=== PATIENT | female | born 1945 | race Caucasian/White ===

== ENCOUNTER 2024-01-15 10:41 | Emergency (ER) | payer MEDICARE, SELFPAY ==
[2024-01-15 11:02] VITALS: BP 116/56; PULSE 72; RESP 16; TEMP 36.5; O2SAT 99; BMI 21.2
--- NOTE | 2024-01-15 11:07 | DI.CT.S_ITS ---
PROCEDURE: CT CERVICAL SPINE WO CON INDICATIONS: fall hit head TECHNIQUE: Noncontrast 3 mm thick sections acquired from the skull base to the T4 level. Sagittal and coronal reformats were then constructed. For radiation dose reduction, the following was used: automated exposure control, adjustment of mA and/or kV according to patient size. COMPARISON: None. FINDINGS: Image quality: Excellent. Bones: No fractures or dislocations. Visualized superior ribs are intact. Disc space narrowing and hypertrophic facet joints noted in the mid to lower cervical spine. Degenerative grade 1 anterior spondylolisthesis C7-T1. At least moderate central stenosis with foraminal C5-6, C6-7 and C7-T1 Soft tissues: Prevertebral soft tissues are normal in thickness. No paravertebral hematomas. No apical pneumothoraces. IMPRESSION: No evidence of fracture or traumatic malalignment. Multilevel degenerative disc disease and arthropathy in the mid to lower lumbar spine Approved by: Jason Stanford M.D. on 01/15/2024 at 11:07
--- NOTE | 2024-01-15 11:07 | DI.CT.S_ITS ---
PROCEDURE: CT HEAD/BRAIN WO CON INDICATIONS: fall hit head TECHNIQUE: Noncontrast 4.5 mm thick angled axial sections acquired from the foramen magnum to the vertex, with coronal and sagittal reformats. For radiation dose reduction, the following was used: automated exposure control, adjustment of mA and/or kV according to patient size. COMPARISON: None. FINDINGS: Image quality: Diagnostic. CSF spaces: Basal cisterns are patent. No extra-axial fluid collections. Ventricles are normal in size and shape. Brain: No midline shift. No intracranial masses or hemorrhage. Rader-white matter interface is normal. Moderate cerebral and cerebellar volume loss with multifocal white matter chronic ischemic change noted. Atherosclerotic calcification noted associated with cavernous segments of both internal carotid arteries. Skull and face: Calvarium and visualized facial bones are intact, without suspicious lesions. Sinuses: Visualized sinuses and mastoids are clear. IMPRESSION: Atrophy and chronic ischemic change without acute hemorrhage or mass. Approved by: Jason Stanford M.D. on 01/15/2024 at 11:03
--- NOTE | 2024-01-15 11:07 | DI.RAD.S_ITS ---
PROCEDURE: XR ANKLE RT MIN 3V INDICATIONS: fall hit head TECHNIQUE: 3 views of the ankle were acquired. COMPARISON: None. FINDINGS: Bones: No fractures or dislocations. Ankle mortise is normally aligned. No suspicious bony lesions. Healed instrumented distal fibular fracture Soft tissues: No tibiotalar joint effusion. Achilles tendon appears normal. IMPRESSION: No acute fracture or hardware failure Approved by: Jason Stanford M.D. on 01/15/2024 at 10:41
--- NOTE | 2024-01-15 12:26 | PC.NURSE ---
no fracture on ankle XR and hardware intact. kareem wrap applied to affected ankle. ice applied. pt unstable on crutches per daughter. walker at home. advised activity as tolerated and f/u with ortho if pain persistant after 1-2 weeks. sitting in WC in 3C. awaiting disposition.
--- NOTE | 2024-01-15 12:51 | ED_ITS ---
HPI - Extremity Injury (Lower) <Brionna Warren PA-C - Last Filed: 01/15/24 15:00> General Chief Complaint: Extremity Injury, Lower Stated Complaint: GLF, No thinners, R Foot Injury Time Seen by Provider: 01/15/24 12:51 History of Present Illness HPI Narrative: Patient is a very pleasant 78-year-old female that presents to the emergency room department today with her daughter. Patient fell last night in the bathroom, and then was unable to get herself up under her own power, she finally was able to crawl to her bedroom to access the phone and her smart phone to call family and let them know she would fallen. Patient complains of right ankle discomfort and pain. Patient fell a year ago and had an ankle fracture needed to have hardware placed. Patient unable to weightbear on the right ankle, due to pain and discomfort. Patient has a substantial musculoskeletal and orthopedic history of multiple interventions in the cervical spine, and lumbar spine with multiple laminectomies, effusions, and instrumentations. Currently at this time the patient denies loss of consciousness, her only complaint is of substantial right ankle pain. Currently the ankle is bruised, and is elevated and has been wrapped with an Simon wrap. Patient states that she did not do anything for pain prior to being seen she takes multiple medications for multiple ongoing medical issues, she did elevate the leg, some ice has been applied and currently is being applied at this time. She does live alone, in her [id number] suite, family is close by, next door neighbors live above her. Patient states that she lives alone, she has been falling more often, she does have footdrop and weakness to the lower extremities, she states she is unsteady, she states she is able to complete her ADLs, she sees a primary care doctor, she sees a psychiatrist, she is on multiple medications, she is chronic pain, has not seen a pain specialist, no other further issues or problems currently at this time. Her chart and medications have been reviewed. Related Data Home Medications Medication Instructions Recorded Confirmed dextroamphetamine-amphetamine PO 06/02/18 06/02/18 [Adderall] gabapentin PO 06/02/18 06/02/18 hydrocodone-acetaminophen PO 06/02/18 06/02/18 levothyroxine [Levoxyl] PO 06/02/18 06/02/18 lisinopril PO 06/02/18 06/02/18 omeprazole PO 06/02/18 06/02/18 oxycodone-acetaminophen PO 06/02/18 06/02/18 quetiapine [Seroquel] PO 06/02/18 06/02/18 stool softner PO 06/02/18 06/02/18 venlafaxine PO 06/02/18 06/02/18 Allergies Allergy/AdvReac Type Severity Reaction Status Date / Time Penicillins Allergy Severe Anaphylaxis Verified 06/02/18 14:25 procaine [From Novocain] Allergy Severe Anaphylaxis Verified 06/02/18 14:25 Sulfa (Sulfonamide Allergy Severe Anaphylaxis Verified 06/02/18 14:25 Antibiotics) tree nut Allergy Severe Anaphylaxis Verified 06/02/18 14:25 Review of Systems <Brionna Warren PA-C - Last Filed: 01/15/24 15:00> Review of Systems Narrative: Negative except as above Musculoskeletal Comments: right ankle pain, unable to bear weight neck pain head CT was done due to fall Patient History <Brionna Warren PA-C - Last Filed: 01/15/24 15:00> Social History Smoking Status: Never smoker Smoking Status: Never smoker Exam <Brionna Warren PA-C - Last Filed: 01/15/24 15:00> Initial Vital Signs Initial Vital Signs: Vital Signs Temperature 97.7 F 01/15/24 11:02 Pulse Rate 72 01/15/24 11:02 Respiratory Rate 16 01/15/24 11:02 Blood Pressure 116/56 L 01/15/24 11:02 Pulse Oximetry 99 01/15/24 11:02 Oxygen Delivery Method Room Air 01/15/24 11:02 reviewed Const General: cooperative, comfortable, well groomed, No acute distress, No in distress, No anxious and frail appearing Nutritional Appearance: thin and underweight Eyes General: Yes appearance normal, both eyes and all related structures Conjunctivae: conjunctivae normal Sclera: sclerae normal Pupils: PERRL EOM: EOM intact bilaterally Resp Auscultation: clear to auscultation bilaterally, no crackles, no rales, no rhonchi, no wheezes and no rubs Tactile Fremitus: tactile fremitus absent Cardio Rate: regular rate Rhythm: regular rhythm Heart Sounds: S1 normal and S2 normal Skin Other: patient has had substantial ecchymosis and some mild soft tissue swelling to the right ankle and foot. Pulses are present. Cap refill Neuro General: patient alert, patient oriented x3 and oriented Gait: other ( Not tested) Other: the patient seems slightly altered, I do not know if this is due to her medications, or she is at baseline I have just met this patient, the daughter seems concerned about the recent falls, she seems concerned about her mother's change in mentation, and the ongoing issues that she is currently having at home with the recent falls, asking questions about life Alert, and how she can help her mother be safe at home in her ADLs as well as her [id number] suite. Extrem Other: Range of motion in the upper extremities, strength, pulses, cap refill is preserved, her body habitus is very thin, I do not know if she is taking enough nutrients, she should be seen by nutrition to be evaluated and possible dietary to help her with supplementation. The left lower extremity range of motion, pulses, cap refill is preserved. Right lower extremity hip, femur, knee, and upper tibia and fibia are normal on exam, she does have a moderate amount of ecchymosis and soft tissue swelling to the distal tib-fib ankle area, her x-rays are negative for any acute findings. The ankle is wrapped. She does have pulses, cap refill is not delayed. She is unable to weightbear, she has not stable enough for crutches, she does have a walker at home Psych Other: Appearance thin, dressed appropriately, clean, mental status I think she is at baseline, speech is slightly slow, movement is not tested due to the fact the patient can not weightbear, her mood and affect I think are blunted by the combination of her medications, her attitude is appropriate, I think her thought process and thought content again is also blunted by the combination of medications that she is currently taking. I also think her judgment is perhaps splinted by the medications that she is currently taking. Discharge information is given to the patient and daughter on things that I feel that they could ask and discuss with her primary care doctor in the office. That might be helpful to the patient going forward. <Suzanne Botnick, DO - Last Filed: 01/15/24 17:35> Initial Vital Signs Initial Vital Signs: Vital Signs Temperature 97.7 F 01/15/24 11:02 Pulse Rate 72 01/15/24 11:02 Respiratory Rate 16 01/15/24 11:02 Blood Pressure 116/56 L 01/15/24 11:02 Pulse Oximetry 99 01/15/24 11:02 Oxygen Delivery Method Room Air 01/15/24 11:02 Scores <Brionna Warren PA-C - Last Filed: 01/15/24 15:00> GCS Citation: 15 Course <Brionna Warren PA-C - Last Filed: 01/15/24 15:00> Orders Ordered: ED Orders 01/15/24 11:07 CT cervical spine wo con Stat CT head/brain wo con Stat XR ankle RT min 3V Stat Vital Signs Vital signs: Vital Signs - 8 hr 01/15/24 11:02 01/15/24 13:40 Temperature 97.7 F Pulse Rate 72 16 L Respiratory Rate 16 16 Blood Pressure 116/56 L 129/60 Pulse Oximetry 99 96 Oxygen Delivery Method Room Air Room Air <Suzanne Boothe DO - Last Filed: 01/15/24 17:35> Orders Ordered: ED Orders 01/15/24 11:07 CT cervical spine wo con Stat CT head/brain wo con Stat XR ankle RT min 3V Stat Vital Signs Vital signs: Vital Signs - 8 hr 01/15/24 11:02 01/15/24 13:40 Temperature 97.7 F Pulse Rate 72 16 L Respiratory Rate 16 16 Blood Pressure 116/56 L 129/60 Pulse Oximetry 99 96 Oxygen Delivery Method Room Air Room Air MDM - Extremity Injury (Lower) <Brionna Warren PA-C - Last Filed: 01/15/24 15:00> Imaging Data Extremity x-ray #1: Radiologist's Impression: [address] [address] XRay Report Signed Patient: Hilda Harvey MR#: [id number] : 1945 Acct:[id number] Age/Sex: 78 / F Date of Service: 01/15/24 Loc: ED Accession Number: [id number] Procedure: XR ankle RT min 3V Ordering Provider: Suzanne Boothe D.O. PROCEDURE: XR ANKLE RT MIN 3V INDICATIONS: fall hit head TECHNIQUE: 3 views of the ankle were acquired. COMPARISON: None. FINDINGS: Bones: No fractures or dislocations. Ankle mortise is normally aligned. No suspicious bony lesions. Healed instrumented distal fibular fracture Soft tissues: No tibiotalar joint effusion. Achilles tendon appears normal. IMPRESSION: No acute fracture or hardware failure Approved by: Jason Stanford M.D. on 01/15/2024 at 10:41 CT - cervical spine: Radiologist's Impression: [place] [address] CT Scan Report Signed Patient: Hilda Harvey MR#: [id number] : 1945 Acct:[id number] Age/Sex: 78 / F Date of Service: 01/15/24 Loc: ED Accession Number: [id number] Procedure: CT cervical spine wo con Ordering Provider: Suzanne Boothe D.O. PROCEDURE: CT CERVICAL SPINE WO CON INDICATIONS: fall hit head TECHNIQUE: Noncontrast 3 mm thick sections acquired from the skull base to the T4 level. Sagittal and coronal reformats were then constructed. For radiation dose reduction, the following was used: automated exposure control, adjustment of mA and/or kV according to patient size. COMPARISON: None. FINDINGS: Image quality: Excellent. Bones: No fractures or dislocations. Visualized superior ribs are intact. Disc space narrowing and hypertrophic facet joints noted in the mid to lower cervical spine. Degenerative grade 1 anterior spondylolisthesis C7-T1. At least moderate central stenosis with foraminal C5-6, C6-7 and C7-T1 Soft tissues: Prevertebral soft tissues are normal in thickness. No paravertebral hematomas. No apical pneumothoraces. IMPRESSION: No evidence of fracture or traumatic malalignment. Multilevel degenerative disc disease and arthropathy in the mid to lower lumbar spine Approved by: Jason Stanford M.D. on 01/15/2024 at 11:07 CT scan - head: Radiologist's Impression: [place] [id number] CT Scan Report Signed Patient: Hilda Harvey MR#: [id number] : 1945 Acct:[id number] Age/Sex: 78 / F Date of Service: 01/15/24 Loc: ED Accession Number: [id number] Procedure: CT head/brain wo con Ordering Provider: Suzanne Boothe D.O. PROCEDURE: CT HEAD/BRAIN WO CON INDICATIONS: fall hit head TECHNIQUE: Noncontrast 4.5 mm thick angled axial sections acquired from the foramen magnum to the vertex, with coronal and sagittal reformats. For radiation dose reduction, the following was used: automated exposure control, adjustment of mA and/or kV according to patient size. COMPARISON: None. FINDINGS: Image quality: Diagnostic. CSF spaces: Basal cisterns are patent. No extra-axial fluid collections. Ventricles are normal in size and shape. Brain: No midline shift. No intracranial masses or hemorrhage. Rader-white matter interface is normal. Moderate cerebral and cerebellar volume loss with mult ifocal white matter chronic ischemic change noted. Atherosclerotic calcification noted associated with cavernous segments of both internal carotid arteries. Skull and face: Calvarium and visualized facial bones are intact, without suspicious lesions. Sinuses: Visualized sinuses and mastoids are clear. IMPRESSION: Atrophy and chronic ischemic change without acute hemorrhage or mass. Approved by: Jason Stanford M.D. on 01/15/2024 at 11:03 [facility] Narrative Medical decision making narrative: 78-year-old female brought to the emergency department by her daughter, status post a fall that happened yesterday, a soft tissue swelling or bruising is noted to the right ankle, status post an ORIF from a right ankle fracture that she sustained 1 year ago. Currently at this time x-rays negative for any acute fractures, hardware is intact. CT scan of the head and neck are negative for any acute findings, age-related abnormalities are noted. Exam is negative for any substantial acute findings except soft tissue swelling and ecchymosis and bruising to the right ankle. Patient is unable to weightbear. Due to muscle wasting, deconditioning, and constant falling and unsteadiness in gait issues I do not think the patient is safe enough to use crutches. The patient does have a walker at home that she will use. The daughter had a lot of questions about things that could help her mother home, we spent great adult time talking about life Alert, and things that I felt that might be helpful to discuss with the primary care doctor as an appointment. For her mother's well-being W>e did we did discuss the findings of the radiographic x-rays that were taken Here. Ankle was wrapped ice was applied. Currently at this time I do not feel comfortable prescribing any pain medications for this patient she is multiple medications that are over sedating, that she is currently taking and the patient's mood, and affect are quite blunted by the combination of the medications that she is currently taking. I think that prescribing pain medications for this patient due to her discomfort and pain are only going to cause her to be at an increased risk for fall and she already currently is falling on a regular basis.. The daughter is in agreement. Patient is discharged with her daughter stable condition. Differential diagnosis; fall, ongoing chronic discomfort and pain, cervical strain, right ankle sprain, strain, soft tissue contusion to the ankle and foot. Discharge Plan Departure Patient Disposition: Home Clinical Impression: Ankle sprain and strain Fall Qualifiers: Encounter type: initial encounter Qualified Code(s): W19.XXXA - Unspecified fall, initial encounter Concussion Qualifiers: Encounter type: initial encounter Loss of consciousness presence/duration: without LOC Qualified Code(s): S06.0X0A - Concussion without loss of consciousness, initial encounter Cervical myofascial strain Qualifiers: Encounter type: initial encounter Qualified Code(s): S16.1XXA - Strain of muscle, fascia and tendon at neck level, initial encounter Activity Restrictions/Additional Instructions: please follow up with your primary care doctor CT scan cervical spine is negative for any acute fractures age-related changes head CT is negative for any substantial findings, age-related changes x-ray of the right ankle negative for acute fractures the hardware is intact consider talking to your primary care doctor about mini-mental eval evaluation of foot drop and possible evaluation for prosthesis, prosthetic for foot drop, consider asking for a referral for PT, for upper and lower extremity strengthening and range of motion consider evaluation for unsteadiness, recent increase in falls consider asking for evaluation, for recent increase in forgetfulness, unknown if the patient has had any type of microvascular strokes. CT scan here of her head was negative for any type of hemorrhagic stroke or bleeding in the brain. Consider speaking with your primary care doctor for evaluation to a pain clinic for her ongoing pain consider speaking with your primary care doctor for evaluation of her med list, and the large amount of sedatives that she is currently taking at bedtime, which put her at higher risk for fall which she seems to be doing any ways. Consider purchasing a life Alert or some type of life band that she can wear if she falls that will alert someone to her falls since she refuses to wear the smart watch the to bought her. Please use the walker since she is unstable and does not and can not use crutches . [id number] Tylenol ibuprofen as needed for discomfort and pain, ice to the ankle elevate the ankle continue with Simon wrap return to the emergency department as needed Prescriptions: No Action dextroamphetamine-amphetamine PO gabapentin PO hydrocodone-acetaminophen PO levothyroxine PO lisinopril PO omeprazole PO oxycodone-acetaminophen PO quetiapine PO stool softner PO venlafaxine PO Stand Alone Forms: Patient Portal/API ED Sign-out <Suzanne Boothe, - Last Filed: 01/15/24 17:35> Cosign ED Attending Cosjudyature Attestation: I was available for consultation.
[2024-01-15 13:40] VITALS: BP 129/60; PULSE 16; RESP 16; O2SAT 96
== END 2024-01-15 13:48 | disposition home or self-care (01) ==
PROVIDERS: Emergency Provider Physician Assistant
DX: S93.401A Sprain of unspecified ligament of right ankle, initial encounter (principal); S96.911A Strain of unspecified muscle and tendon at ankle and foot level, right foot, initial encounter; S06.0X0A Concussion without loss of consciousness, initial encounter; S16.1XXA Strain of muscle, fascia and tendon at neck level, initial encounter; W18.30XA Fall on same level, unspecified, initial encounter
CPT/HCPCS: 70450; 72125; 73610; 99284

== ENCOUNTER 2024-03-08 10:15 | Emergency (ER) | payer MEDICARE, SELFPAY ==
[2024-03-08 10:21] VITALS: BP 137/68; PULSE 86; O2SAT 97
[2024-03-08 10:24] VITALS: BP 137/68; PULSE 85; RESP 16; TEMP 36.8; O2SAT 96; BMI 19.5
[2024-03-08 10:30] VITALS: BP 128/69; PULSE 81; O2SAT 99
--- NOTE | 2024-03-08 10:35 | ED_ITS ---
HPI - Head Injury General Chief complaint: Head Injury Stated complaint: Headaches after a fall a few days ago Time Seen by Provider: 03/08/24 10:23 Source: patient Mode of arrival: Family Vehicle History of Present Illness HPI Narrative: Patient is a 78-year-old female. Has a history of frequent falls. Not on anticoagulation. A couple days ago fell and hit her head. States she was using the restroom at approximately 0500 hours in the morning. She stood up to pull up her pants and lost balance and fell back hitting her head. No loss of consciousness. No extremity injuries. She did hit her head. Since that time she was had headache and discomfort to the area and lump over the area where she hit her head. She contacted her primary doctor and was advised to come to the emergency department. She was also having left-sided neck discomfort. No numbness and tingling into her arms. She also reports that she fell several weeks ago and since that time has had discomfort in the right side of her jaw and unable to open her jaw all the way. Related Data Home Medications Medication Instructions Recorded Confirmed dextroamphetamine-amphetamine PO 06/02/18 03/02/24 [Adderall] gabapentin PO 06/02/18 03/02/24 hydrocodone-acetaminophen PO 06/02/18 03/02/24 levothyroxine [Levoxyl] PO 06/02/18 03/02/24 lisinopril PO 06/02/18 03/02/24 omeprazole PO 06/02/18 03/02/24 quetiapine [Seroquel] PO 06/02/18 03/02/24 stool softner PO 06/02/18 03/02/24 venlafaxine PO 06/02/18 03/02/24 gabapentin 100 mg capsule 100 mg PO BEDTIME 05/20/23 03/02/24 hydrocodone 10 mg-acetaminophen 15 ml PO Q12H PRN pain 05/20/23 03/02/24 325 mg/15 mL (15 mL) oral solution meloxicam 15 mg tablet 15 mg PO DAILY 05/20/23 03/02/24 dextroamphetamine-amphetamine 20 1 tab PO DAILY 12/09/23 03/02/24 mg tablet omeprazole 40 mg capsule,delayed 40 mg PO BID 12/09/23 03/02/24 release quetiapine 100 mg tablet mg PO 12/09/23 03/02/24 trazodone 150 mg tablet 150 mg PO ONCE PM 12/09/23 03/02/24 venlafaxine 150 mg 300 mg PO DAILY 12/09/23 03/02/24 capsule,extended release 24 hr Previous Rx's Medication Instructions Recorded hydroxyzine pamoate 25 mg capsule 50 mg (2 x 25 mg) PO BEDTIME PRN 05/20/23 (Vistaril) for itching #60 caps triamcinolone acetonide 0.5 % 1 applic topical BID #15 grams 05/20/23 topical cream mupirocin 2 % topical ointment 1 applic topical TID #22 grams 07/05/23 trazodone 100 mg tablet 100 mg PO BEDTIME PRN insomnia #90 08/17/23 tabs Disabled Parking Permit #1 ea 01/25/24 levothyroxine 100 mcg tablet 100 mcg PO .qod #45 tabs 01/26/24 levothyroxine 88 mcg tablet 88 mcg PO .qod #45 tabs 01/26/24 gabapentin 600 mg tablet 1,800 mg (3 x 600 mg) PO BEDTIME 03/02/24 #15 tabs Allergies Allergy/AdvReac Type Severity Reaction Status Date / Time amoxicillin Allergy Severe Hives Verified 03/08/24 10:27 hydromorphone [From Dilaudid] Allergy Severe Hallucinati Verified 03/08/24 10:27 ng Penicillins Allergy Severe Anaphylaxis Verified 03/08/24 10:27 procaine [From Novocain] Allergy Severe Anaphylaxis Verified 03/08/24 10:27 Sulfa (Sulfonamide Allergy Severe Anaphylaxis Verified 03/08/24 10:27 Antibiotics) tree nut Allergy Severe Anaphylaxis Verified 03/08/24 10:27 oxycodone AdvReac Severe Hallucinati Verified 03/08/24 10:27 ng nuts Allergy Severe Anaphylaxis Uncoded 03/08/24 10:27 Review of Systems Review of Systems Narrative: See HPI Patient History Medical History Orthostatic hypotension Ankle pain, right Knee pain Back pain Insomnia Spinal osteoarthritis Hypothyroidism Social History Smoking Status: Never smoker Smoking Status: Never smoker alcohol intake frequency: 0-2 drinks per day Exam Initial Vital Signs Initial Vital Signs: Vital Signs Pulse Rate 86 03/08/24 10:21 Blood Pressure 137/68 03/08/24 10:21 Pulse Oximetry 97 03/08/24 10:21 Const General: cooperative, comfortable and No ill appearing HENMT Head: No abrasion, contusion (Midline parietal region), No laceration, No palpable skull fracture and scalp tenderness Face and sinus: normal facial exam Teeth and gingiva: dentition normal HENMT Other: Some discomfort with palpation right TMJ Resp Effort & Inspection: normal respiratory effort Cardio Rate: regular rate Back/Spine/Pelvis Cervical Spine: cervical muscular tenderness (Left-sided paraspinal) and No cervical spinal tenderness Skin General: no rashes or lesions noted Neuro General: patient alert, patient awake and moves all extremities Cognition: normal cognition Speech: speech normal Extrem General: capillary refill normal Course Orders Ordered: ED Orders 03/08/24 10:35 CT cervical spine wo con Stat CT facial bones wo con Stat CT head/brain wo con Stat Vital Signs Vital signs: Vital Signs - 8 hr 03/08/24 10:21 03/08/24 10:21 03/08/24 10:24 Temperature 98.2 F Pulse Rate 86 85 Respiratory Rate 16 Blood Pressure 137/68 137/68 Pulse Oximetry 97 96 Oxygen Delivery Method Room Air 03/08/24 10:30 03/08/24 10:30 03/08/24 10:48 Temperature Pulse Rate 81 76 Respiratory Rate Blood Pressure 128/69 Pulse Oximetry 99 99 Oxygen Delivery Method 03/08/24 10:48 03/08/24 11:00 03/08/24 11:00 Temperature Pulse Rate 67 Respiratory Rate Blood Pressure 129/66 134/66 Pulse Oximetry 99 Oxygen Delivery Method MDM - Head Injury Imaging Data CT scan - head: Radiologist's Impression: INDICATIONS: fall with head injury TECHNIQUE: Noncontrast 4.5 mm thick angled axial sections acquired from the foramen magnum to the vertex, with coronal and sagittal reformats. For radiation dose reduction, the following was used: automated exposure control, adjustment of mA and/or kV according to patient size. COMPARISON: [facility], CT, CT HEAD/BRAIN WO CON, 01/15/2024, 11:16. FINDINGS: Image quality: Diagnostic. CSF spaces: Basal cisterns are patent. No extra-axial fluid collections. The ventricles are symmetric in size and shape. Brain: No intracranial bleeds or masses. There is cerebral volume loss for age, with resultant ventricular and sulcal prominence. There are periventricular and deep white matter chronic small vessel ischemic changes. There is intracranial internal carotid artery atherosclerosis. Skull and face: Calvarium and visualized facial bones appear intact, without suspicious lesions. Sinuses: Visualized sinuses and mastoids are clear. IMPRESSION: No acute intracranial pathology. CT - cervical spine: Radiologist's Impression: PROCEDURE: CT CERVICAL SPINE WO CON INDICATIONS: fall iwth L sided neck pain TECHNIQUE: Noncontrast 3 mm thick sections acquired from the skull base to the T4 level. Sagittal and coronal reformats were then constructed. For radiation dose reduction, the following was used: automated exposure control, adjustment of mA and/or kV according to patient size. COMPARISON: [facility], CT, CT CERVICAL SPINE WO CON, 01/15/2024, 11:16. FINDINGS: Image quality: Excellent. Bones: No fractures or dislocations. Visualized superior ribs are intact. Stable mid and lower cervical degenerative changes involving the disc spaces and facet joints. Soft tissues: Prevertebral soft tissues are normal in thickness. No paravertebral hematomas. No apical pneumothoraces. IMPRESSION: Stable over time, chronic degenerative changes but no trauma found. CT face: Radiologist's Impression: PROCEDURE: CT FACIAL BONES WO CON INDICATIONS: fall with r sided jaw pain TECHNIQUE: Noncontrast 2.5 mm thick axial images acquired from the mandible through the frontal sinuses, with coronal and sagittal reformatting. For radiation dose reduction, the following was used: automated exposure control, adjustment of mA and/or kV according to patient size. COMPARISON: [facility], CT, CT HEAD/BRAIN WO CON, 03/08/2024, 10:39. FINDINGS: Image quality: Excellent. Bones and teeth: Orbital mahmood are intact. Sinus mahmood show no fracture or deformity. Nasal bones and septum are intact. Visualized portions of the mandible demonstrate no fractures or subluxation. Zygomatic arches are intact. Pterygoid plates are intact. Visualized portions of the skull base and auditory canals are intact. Sinuses: Paranasal sinuses are aerated, without fluid levels, mucosal thickening, or mucoceles. Mastoid air cells are aerated. Soft tissues: No edema, masses, or fluid collections. No enlarged lymph nodes. No soft tissue lacerations or debris. Vascular: Visualized vascular structures appear normal in the absence of contrast. Bony vascular foramina and canals are intact. IMPRESSION: No trauma found. MDM Narrative Medical decision making narrative: CT scans today are unremarkable. She was no extremity injuries. No indication for further radiologic studies out of the emergency department. Recommended that she contact her primary doctor for a follow-up. She expressed understanding and agreement with plan. Discharge Plan Departure Patient Disposition: Home Clinical Impression: Closed head injury Instructions: How to Prevent Falls, DI for Closed Head Injury Activity Restrictions/Additional Instructions: Continue to take all of your medications as directed. Contact your primary doctor for a follow-up. Return to the emergency department for new or worsening symptoms. Prescriptions: No Action dextroamphetamine-amphetamine PO gabapentin PO hydrocodone-acetaminophen PO levothyroxine PO lisinopril PO omeprazole PO quetiapine PO stool softner PO venlafaxine PO mupirocin 2 % ointment 1 applic topical TID Qty: 22 0RF omeprazole 40 mg capsule,delayed release(DR/EC) 40 mg PO BID trazodone 150 mg tablet 150 mg PO ONCE PM venlafaxine 150 mg capsule,extended release 24hr 300 mg PO DAILY quetiapine 100 mg tablet PO dextroamphetamine-amphetamine 20 mg tablet 1 tab PO DAILY (DME) Disabled Parking Permit See Rx Instructions .ROUTE .MEDSUPPLY Qty: 1 0RF Rx Instructions: I find this person to be disabled gabapentin 600 mg tablet 1,800 mg PO BEDTIME Qty: 15 0RF meloxicam 15 mg tablet 15 mg PO DAILY gabapentin 100 mg capsule 100 mg PO BEDTIME hydrocodone-acetaminophen 10-325 mg/15 mL(15 mL) solution 15 ml PO Q12H PRN (Reason: pain) Patient Comments: Only as needed, last resort hydroxyzine pamoate [Vistaril] 25 mg capsule 50 mg PO BEDTIME PRN (Reason: for itching) Qty: 60 0RF triamcinolone acetonide 0.5 % cream 1 applic topical BID Qty: 15 0RF Rx Instructions: Apply BID x1-2 weeks on lesion on chest trazodone 100 mg tablet 100 mg PO BEDTIME PRN (Reason: insomnia) Qty: 90 0RF levothyroxine 88 mcg tablet 88 mcg PO .qod Qty: 45 0RF levothyroxine 100 mcg tablet 100 mcg PO .qod Qty: 45 0RF Referrals: Kate Moreno MD [Primary Care Provider] - Stand Alone Forms: Patient Portal/API/Survey
[2024-03-08 10:48] VITALS: BP 129/66; PULSE 76; O2SAT 99
[2024-03-08 11:00] VITALS: BP 134/66; PULSE 67; O2SAT 99
[2024-03-08 11:30] VITALS: BP 129/84; PULSE 70; O2SAT 99
== END 2024-03-08 11:45 | disposition home or self-care (01) ==
PROVIDERS: Emergency Provider Emergency Medicine; PCP Family Medicine
DX: S09.8XXA Other specified injuries of head, initial encounter (principal); M54.2 Cervicalgia; W18.30XA Fall on same level, unspecified, initial encounter
CPT/HCPCS: 70450; 70486; 72125; 99281; 99284

== ENCOUNTER → 2024-05-03 11:39 | Outpatient (CLI) | payer MEDICARE, SELFPAY ==
--- NOTE | 2024-05-03 11:43 | DI.RAD.S_ITS ---
PROCEDURE: XR ANKLE RT 2V INDICATIONS: pain after fall TECHNIQUE: 3 views of the ankle were acquired. COMPARISON: [facility], CR, XR ANKLE RT MIN 3V, 01/15/2024, 11:06. [facility], CR, XR FOOT RT 2V, 05/03/2024, 11:56. FINDINGS: Bones: Distal fibular ORIF. Hardware is intact without hardware fracture or periprosthetic lucency to suggest loosening. Alignment is stable. No visualized acute fractures. Soft tissues: No tibiotalar joint effusion. Achilles tendon appears normal. IMPRESSION: Stable appearance of distal fibular ORIF. Dictated by: Hillary Simpson M.D. on 05/03/2024 at 14:36 Approved by: Hillary Simpson M.D. on 05/03/2024 at 14:36
--- NOTE | 2024-05-03 11:43 | DI.RAD.S_ITS ---
PROCEDURE: XR FOOT RT 2V INDICATIONS: Foot pain after fall 6 weeks ago TECHNIQUE: 3 views of the foot were acquired. COMPARISON: [facility], CR, XR ANKLE RT MIN 3V, 01/15/2024, 11:06. [facility], CR, XR ANKLE RT 2V, 05/03/2024, 11:56. FINDINGS: Bones: Distal fibular ORIF. Hardware is intact without hardware fracture or periprosthetic lucency to suggest loosening. Alignment is stable. Soft tissues: No tibiotalar joint effusion. Achilles tendon appears normal. IMPRESSION: Stable appearance of distal fibular ORIF. Dictated by: Hillary Simpson M.D. on 05/03/2024 at 14:35 Approved by: Hillary Simpson M.D. on 05/03/2024 at 14:36
== END ==
PROVIDERS: PCP Family Medicine; Referring Provider Family Medicine; Visit Provider Family Medicine
DX: M25.571 Pain in right ankle and joints of right foot (principal); R29.6 Repeated falls; S82.831S Other fracture of upper and lower end of right fibula, sequela
CPT/HCPCS: 73610; 73630

== ENCOUNTER 2024-05-21 00:32 | Emergency (ER) | payer MEDICARE, SELFPAY ==
[2024-05-21] VITALS (20 sets, daily range): BP systolic 88–149; BP diastolic 55–77; PULSE 64–100; RESP 17–51; TEMP 36.8; O2SAT 91–100; BMI 20.2
--- NOTE | 2024-05-21 01:02 | DI.RAD.S_ITS ---
PROCEDURE: XR CHEST 1V INDICATIONS: chest pain TECHNIQUE: One view of the chest was acquired. COMPARISON: None. FINDINGS AND IMPRESSION: On this single view study, no airspace consolidation or pleural effusion is seen. Normal heart size. Unremarkable osseous structures. Dictated by: Nimesh Mcintosh M.D. on 05/21/2024 at 7:59 Approved by: Nimesh Mcintosh M.D. on 05/21/2024 at 8:00
[2024-05-21] MEDS: ASPIRIN 81 MG CHEW TAB 324 MG PO (01:11)
--- NOTE | 2024-05-21 01:11 | EKG_ITS ---
[address] [address] [place] [address] Test Date: 2024-05-21 Pat Name: Hilda Wheeler Department: [facility] Room: Gender: Female Food Demonstrator: HONORIO : 1945 Requested By: Order Number: [id number] Reading MD: Froilan Albright Measurements Intervals [place] Rate: 96 P: 73 RI: 186 QRS: -62 QRSD: 90 T: 65 QT: 386 QTc: 487 Interpretive Statements Normal sinus rhythm Left anterior fascicular block Cannot rule out Anterior infarct , age undetermined Electronically Signed On 05-21-2024 7:23:18 PST by Froilan Albright
--- NOTE | 2024-05-21 01:12 | ED_ITS ---
HPI - Chest Pain General Chief Complaint: Chest Pain Stated Complaint: ABD PAIN, TROUBLE BREATHING Time Seen by Provider: 05/21/24 01:11 Source: patient and family Mode of arrival: Ambulatory Limitations: no limitations History of Present Illness HPI narrative: 78-year-old female with a past medical history hypothyroidism recurrent falls comes into the ED from home complaining of chest pain shortness of breath abdominal pain as well as sinus congestion/drainage ongoing persistent for the past 2 weeks. Patient states that she presents today because her symptoms initially improved however started having more sinus drainage chest congestion states that she feels it going to the back of her throat into her stomach causing chest pain shortness of breath as well as abdominal pain. She states that she has not having any headache visual disturbances vomiting or any other GI/ symptoms time. Does endorse some nausea. Related Data Home Medications Medication Instructions Recorded Confirmed dextroamphetamine-amphetamine PO 06/02/18 05/03/24 [Adderall] venlafaxine PO 06/02/18 05/03/24 meloxicam 15 mg tablet 15 mg PO DAILY 05/20/23 05/03/24 dextroamphetamine-amphetamine 20 1 tab PO DAILY 12/09/23 05/03/24 mg tablet omeprazole 40 mg capsule,delayed 40 mg PO BID 12/09/23 05/03/24 release quetiapine 100 mg tablet mg PO 12/09/23 05/03/24 trazodone 150 mg tablet 150 mg PO ONCE PM 12/09/23 05/03/24 venlafaxine 150 mg 300 mg PO DAILY 12/09/23 05/03/24 capsule,extended release 24 hr Previous Rx's Medication Instructions Recorded hydroxyzine pamoate 25 mg capsule 50 mg (2 x 25 mg) PO BEDTIME PRN 05/20/23 (Vistaril) for itching #60 caps triamcinolone acetonide 0.5 % 1 applic topical BID #15 grams 05/20/23 topical cream mupirocin 2 % topical ointment 1 applic topical TID #22 grams 07/05/23 Disabled Parking Permit #1 ea 01/25/24 gabapentin 600 mg tablet 1,800 mg (3 x 600 mg) PO BEDTIME 03/02/24 #15 tabs levothyroxine 88 mcg tablet 88 mcg PO .QOD #45 tabs 04/25/24 levothyroxine 100 mcg tablet 100 mcg PO .QOD #45 tabs 04/30/24 Allergies Allergy/AdvReac Type Severity Reaction Status Date / Time amoxicillin Allergy Severe Hives Verified 03/08/24 10:27 hydromorphone [From Dilaudid] Allergy Severe Hallucinati Verified 03/08/24 10:27 ng Penicillins Allergy Severe Anaphylaxis Verified 03/08/24 10:27 procaine [From Novocain] Allergy Severe Anaphylaxis Verified 03/08/24 10:27 Sulfa (Sulfonamide Allergy Severe Anaphylaxis Verified 03/08/24 10:27 Antibiotics) tree nut Allergy Severe Anaphylaxis Verified 03/08/24 10:27 oxycodone AdvReac Severe Hallucinati Verified 03/08/24 10:27 ng nuts Allergy Severe Anaphylaxis Uncoded 03/08/24 10:27 Review of Systems Review of Systems Narrative: General: Denies fever, chills, weight loss HEENT: Positive sinus pressure/drainage, Denies headache, eye drainage, eye irritation, head trauma, sore throat, voice change Cardiovascular: Positive chest pain, denies palpitations, shortness of breath, tachycardia Respiratory: Positive shortness of breath, denies cough, wheeze, stridor GI/: Positive abdominal pain, nausea, vomiting, denies diarrhea, bright red blood per rectum, melanotic stools, urinary frequency, urinary retention, dysuria, hematuria MSK: Denies any joint pain, muscle pains, swelling Skin: Denies any rashes, lesions, discoloration Neuro: Denies any headache, lightheadedness, dizziness, fainting, weakness Psych: Denies SI/HI Patient History Medical History Orthostatic hypotension Ankle pain, right Knee pain Back pain Insomnia Spinal osteoarthritis Hypothyroidism Social History Smoking Status: Never smoker Smoking Status: Never smoker alcohol intake frequency: 0-2 drinks per day Exam Narrative Exam Narrative: General: Cooperative, comfortable, elderly, frail, cachectic, not in acute distress HEENT: Normocephalic, atraumatic, PERRLA, normal sclera, eyelids normal, Neck: Active full range of motion, atraumatic Chest: Normal to inspection, negative crepitus, no overlying erythema ecchymosis Respiratory: Normal respiratory effort, not in acute respiratory distress, clear to auscultation bilaterally negative cough, wheeze, tachypnea, rhonchi, rales Cardiology: Regular rate rhythm negative gallop, murmur, rubs GI/: Normal to inspection, soft, nonrigid, no tenderness to palpation, exam deferred MSK: Full range of active range of motion of all 4 extremities, atraumatic Skin: No rashes lesions noted Neuro: Patient with known tremors, baseline Alert awake oriented x3, moves all 4 extremities spontaneously, cranial nerves intact, able to answer all questions appropriately follows commands appropriately Psych: Cooperative, negative suicidal or homicidal ideations Initial Vital Signs Initial Vital Signs: Vital Signs Temperature 98.3 F 05/21/24 00:56 Pulse Rate 64 05/21/24 00:56 Respiratory Rate 22 05/21/24 00:56 Blood Pressure 149/64 H 05/21/24 00:56 Pulse Oximetry 100 05/21/24 00:56 Oxygen Delivery Method Room Air 05/21/24 00:56 Course Orders Ordered: ED Orders 05/21/24 01:02 XR chest 1V Stat EKG-12 Lead Stat 05/21/24 01:20 CT abdomen pelvis w con Stat Complete Blood Count AUTO DIFF Stat Comprehensive Metabolic Panel Stat Lipase Stat MAG [Magnesium] Stat NT-proBNP (BNP-Adult 18+) Stat PT [Prothrombin Time INR] Stat PTT Partial Thromboplastin Endy Stat Troponin & CK Cardiac Panel Stat 05/21/24 01:31 Covid-19 + FLU A/B + RSV - PCR Stat 05/21/24 04:45 Trop I [Troponin I] Stat 05/21/24 05:24 EKG-12 Lead Stat Heparin Sodium/Dextrose (Heparin Drip) 25,000 unit in 500 mls @ 14.043 mls/hr IV CONT JEREMY; Protocol Last Admin: 05/21/24 03:17 Dose: 12 units/kg/hr, 14.043 mls/hr Documented By: WEST Co-signed By: Nitroglycerin (Nitroglycerin) 50 mg in 250 mls @ 1.5 mls/hr IV TITRATE JEREMY; Protocol Last Titration: 05/21/24 03:15 Dose: 0 mcg/min, 0 mls/hr Documented By: Admin: 05/21/24 03:01 Dose: 5 mcg/min, 1.5 mls/hr Documented By: WEST Discontinued Medications Aspirin (Aspirin 81 Mg Chew Tab) 324 mg PO NOW ONE Stop: 05/21/24 01:03 Last Admin: 05/21/24 01:11 Dose: 324 mg Documented By: Famotidine (Famotidine 20 Mg/2 Ml Vial) 20 mg IV NOW ONE Stop: 05/21/24 01:21 Last Admin: 05/21/24 01:30 Dose: 20 mg Documented By: WEST Heparin Sodium (Porcine) (Heparin 5,000 Unit/Ml Vial) 3,500 unit 60 unit/kg (3500 unit) IV NOW ONE Stop: 05/21/24 02:36 Last Admin: 05/21/24 03:18 Dose: 3,500 unit Documented By: WEST Sodium Chloride (Normal Saline 0.9%) 1,000 mls @ 1,000 mls/hr IV BOLUS ONE Stop: 05/21/24 04:31 Last Infusion: 05/21/24 05:43 Dose: Infused Documented By: Admin: 05/21/24 03:15 Dose: 1,000 mls/hr Documented By: WEST Ketorolac Tromethamine (Ketorolac 30 Mg/Ml Vial) 15 mg IV NOW ONE Stop: 05/21/24 01:21 Last Admin: 05/21/24 01:29 Dose: 15 mg Documented By: WEST Lorazepam (Lorazepam 2 Mg/Ml Inj) 0.5 mg IV NOW ONE Stop: 05/21/24 03:48 Last Admin: 05/21/24 04:00 Dose: 0.5 mg Documented By: WEST Ondansetron HCl (Ondansetron 4 Mg/2 Ml Inj) 4 mg IV NOW ONE Stop: 05/21/24 01:21 Last Admin: 05/21/24 01:30 Dose: 4 mg Documented By: WEST Vital Signs Vital signs: Vital Signs - 8 hr 05/21/24 00:56 05/21/24 01:11 05/21/24 01:19 Temperature 98.3 F Pulse Rate 64 96 H Respiratory Rate 22 20 Blood Pressure 149/64 H 118/69 Pulse Oximetry 100 Oxygen Delivery Method Room Air 05/21/24 01:19 05/21/24 01:30 05/21/24 01:30 Temperature Pulse Rate 96 H 93 H Respiratory Rate 48 H 39 H Blood Pressure 133/62 Pulse Oximetry 98 Oxygen Delivery Method 05/21/24 02:00 05/21/24 02:00 05/21/24 02:30 Temperature Pulse Rate 87 87 Respiratory Rate 31 H 31 H Blood Pressure 111/68 Pulse Oximetry 97 99 Oxygen Delivery Method 05/21/24 02:30 05/21/24 02:57 05/21/24 02:57 Temperature Pulse Rate 92 H Respiratory Rate 29 H Blood Pressure 95/58 L 102/55 L Pulse Oximetry 97 Oxygen Delivery Method 05/21/24 03:00 05/21/24 03:01 05/21/24 03:01 Temperature Pulse Rate 89 89 Respiratory Rate 47 H 33 H Blood Pressure 103/74 Pulse Oximetry 98 98 Oxygen Delivery Method 05/21/24 03:30 05/21/24 03:30 05/21/24 03:45 Temperature Pulse Rate 90 85 Respiratory Rate 39 H 51 H Blood Pressure 88/62 L Pulse Oximetry 97 98 Oxygen Delivery Method 05/21/24 03:45 05/21/24 04:00 05/21/24 04:00 Temperature Pulse Rate 86 Respiratory Rate 20 Blood Pressure 93/60 102/60 Pulse Oximetry 97 Oxygen Delivery Method 05/21/24 04:15 05/21/24 04:15 05/21/24 04:30 Temperature Pulse Rate 85 90 Respiratory Rate 22 32 H Blood Pressure 109/65 Pulse Oximetry 97 93 Oxygen Delivery Method 05/21/24 04:30 05/21/24 04:45 05/21/24 04:45 Temperature Pulse Rate 92 H Respiratory Rate 18 Blood Pressure 111/69 123/70 Pulse Oximetry 93 Oxygen Delivery Method 05/21/24 05:00 05/21/24 05:01 05/21/24 05:01 Temperature Pulse Rate 93 H 93 H Respiratory Rate 20 17 Blood Pressure 109/69 Pulse Oximetry 94 93 Oxygen Delivery Method 05/21/24 05:30 05/21/24 05:30 Temperature Pulse Rate 94 H Respiratory Rate 36 H Blood Pressure 115/63 Pulse Oximetry 91 Oxygen Delivery Method MDM - Chest Pain Differential Diagnosis Differential diagnosis: Likely st elevation myocardial infarction, chest pain and other (COVID, flu, RSV, ACS, pneumonia, electrolyte abnormality) Lab Data 05/21/24 01:20 05/21/24 01:20 Labs: Lab Results 05/21/24 05/21/24 05/21/24 Range/Units 01:20 01:20 01:31 WBC 7.2 (4.5-11.0) X10^3/uL RBC 4.46 (4.0-5.2) X10^6/uL Hgb 14.0 (12.0-16.0) g/dL Hct 42.4 (36-46) % MCV 95.0 (80-100) fL MCH 31.3 (26-34) PG MCHC 32.9 (30-36) % RDW 13.6 (11.6-14.8) % Plt Count 177 (150-400) X10^3/uL Neut % (Auto) 60.0 (50-75) % Lymph % (Auto) 28.3 (25-40) % [place] % (Auto) 8.1 (3-14) % Eos % (Auto) 2.5 (2-4) % Baso % (Auto) 1.1 (0-2) % Neut # (Auto) 4300 (5843-8262) /uL Lymph # (Auto) 2000 (3335-8303) /uL [place] # (Auto) 600 (0-900) /uL Eos # (Auto) 200 (0-450) /uL Baso # (Auto) 100 (0-100) /uL PT 9.8 (9.4-12.5) SECONDS INR 0.9 (0.9-1.3) APTT 31 (25.1-36.5) SECONDS Sodium 139 (137-145) mmol/L Potassium 4.8 (3.4-5.1) mmol/L Chloride 106 (98-107) mmol/L Carbon Dioxide 20 L (22-32) mmol/L BUN 18 H (7-17) mg/dL Creatinine 0.86 (0.52-1.04) mg/dL Estimated GFR > 60 (>60) mL/min BUN/Creatinine Ratio 20.9 (6-22) Glucose 205 H (80-110) mg/dL Calcium 9.6 (8.4-10.2) mg/dL Magnesium 1.7 (1.6-2.3) mg/dL Total Bilirubin 0.5 (0.2-1.3) mg/dL AST 87 H (14-36) IU/L ALT 47 H (<35) IU/L Alkaline Phosphatase 97 (38-126) U/L Total Creatine Kinase 76 (30-135) U/L Troponin I 0.722 H* (0.01-0.034) ng/mL NT-Pro-B Natriuret Pep 368 (<450) pg/mL Total Protein 6.9 (6.3-8.2) g/dL Albumin 4.2 (3.5-5.0) g/dL Globulin 2.7 (1.7-4.1) g/dL Albumin/Globulin Ratio 1.6 (1.0-2.8) Lipase 167 Cancelled (23-300) U/L SARS-CoV-2 (PCR) Negative (Negative) Influenza A (RT-PCR) Flu a positive H (NEGATIVE) Influenza B (RT-PCR) Flu b negative (NEGATIVE) RSV (PCR) Negative (Negative) 05/21/24 Range/Units 04:45 WBC (4.5-11.0) X10^3/uL RBC (4.0-5.2) X10^6/uL Hgb (12.0-16.0) g/dL Hct (36-46) % MCV (80-100) fL MCH (26-34) PG MCHC (30-36) % RDW (11.6-14.8) % Plt Count (150-400) X10^3/uL Neut % (Auto) (50-75) % Lymph % (Auto) (25-40) % [place] % (Auto) (3-14) % Eos % (Auto) (2-4) % Baso % (Auto) (0-2) % Neut # (Auto) (6542-9897) /uL Lymph # (Auto) (5638-3558) /uL [place] # (Auto) (0-900) /uL Eos # (Auto) (0-450) /uL Baso # (Auto) (0-100) /uL PT (9.4-12.5) SECONDS INR (0.9-1.3) APTT (25.1-36.5) SECONDS Sodium (137-145) mmol/L Potassium (3.4-5.1) mmol/L Chloride (98-107) mmol/L Carbon Dioxide (22-32) mmol/L BUN (7-17) mg/dL Creatinine (0.52-1.04) mg/dL Estimated GFR (>60) mL/min BUN/Creatinine Ratio (6-22) Glucose (80-110) mg/dL Calcium (8.4-10.2) mg/dL Magnesium (1.6-2.3) mg/dL Total Bilirubin (0.2-1.3) mg/dL AST (14-36) IU/L ALT (<35) IU/L Alkaline Phosphatase (38-126) U/L Total Creatine Kinase (30-135) U/L Troponin I 2.350 H* (0.01-0.034) ng/mL NT-Pro-B Natriuret Pep (<450) pg/mL Total Protein (6.3-8.2) g/dL Albumin (3.5-5.0) g/dL Globulin (1.7-4.1) g/dL Albumin/Globulin Ratio (1.0-2.8) Lipase (23-300) U/L SARS-CoV-2 (PCR) (Negative) Influenza A (RT-PCR) (NEGATIVE) Influenza B (RT-PCR) (NEGATIVE) RSV (PCR) (Negative) Imaging Data Chest x-ray: Radiologist's Impression: Preliminary read showing no acute cardiopulmonary abnormality CT scan - abdomen/pelvis: Radiologist's Impression: Preliminary read showing questionable trace pericholecystic fluid and dilation of the common bile duct but no definitive acute cholecystitis, no colitis diverticulitis bowel obstruction obstructive uropathy or acute appendicitis, ECG Data Interpretation: EKG interpreted by ED physician sinus 96 beats per minute QTC [address] changes no STEMI Repeat EKG interpreted ED physician sinus 95 beats per minute QTC [address] changes no STEMI MDM Narrative Medical decision making narrative: 78-year-old female with a history of hypothyroidism tremors comes into the ED from home for multiple complaints. She states that she has been having sinus congestion and drainage ongoing intermittent for 2 weeks initially had improvement but today was worse states that she feels like the drainage is going to the back of her throat causing her chest pain shortness of breath and abdominal pain endorses nausea without vomiting. Patient had lab work imaging EKG performed here in the emergency department. EKG nonischemic in nature. Initial troponin elevated 0.722, heparin bolus and drip initiated, also started nitro drip given patient is still with active chest pain CT scan showing questionable trace pericholecystic fluid and common bile duct dilation however patient without any tenderness to palpation of the right upper quadrant no elevation in the bilirubin low suspicion for acute cholecystitis at this time. 0246: Discussed case with news anchor Dr. Gray, who agrees that patient needs to be transferred for catheterization recommending nitro drip agrees with heparinization. 0320: Was updated that at this time it is going to take days at the surrounding hospitalist for transfer for this patient, I did discuss case again with Dr. Gray of Cardiology in regards to my concern that patient may not get transferred for catheterization soon and possible need for [employer] activation given patient with active chest pain heparinization and nitro, she states that at this time given patient without ischemic EKG patient not needing emergent catheterization states unless patient troponin continues to significantly elevate, or has EKG changes no further intervention at this time 0405: Discussed case with [facility] for possible transfer, states will try to get her waitlisted, but wont have a bed until shift change / discharges 0530: Patient's repeat troponin now 2.350 still with intermittent chest pain, I have had to take off the nitro drip given patient's blood pressure dropping while on it. I did discuss case with Dr. Gray of cardiology again and she states that this is still not an indication to activate the [employer] but states that we can attempt to try ED to ED transfer to [facility] so that patient is at a facility where [employer] is available if patient needs catheterization intervention. We will reach out to [facility] to attempt to try ED to ED transfer. 0536: Had a discussion with the ER doctor at [facility] Dr. Felix Bueno, accepts the transfer ED to ED patient will be transferred to [facility] 0600: Received update patient to be transferred to [facility] ED to ED ET a 6:15 a.m. Discharge Plan Departure Patient Disposition: Home Clinical Impression: Non-ST elevation MS (NSTEMI), Chest pain, Influenza A Prescriptions: No Action dextroamphetamine-amphetamine PO venlafaxine PO mupirocin 2 % ointment 1 applic topical TID Qty: 22 0RF omeprazole 40 mg capsule,delayed release(DR/EC) 40 mg PO BID trazodone 150 mg tablet 150 mg PO ONCE PM venlafaxine 150 mg capsule,extended release 24hr 300 mg PO DAILY quetiapine 100 mg tablet PO dextroamphetamine-amphetamine 20 mg tablet 1 tab PO DAILY (DME) Disabled Parking Permit See Rx Instructions .ROUTE .MEDSUPPLY Qty: 1 0RF Rx Instructions: I find this person to be disabled gabapentin 600 mg tablet 1,800 mg PO BEDTIME Qty: 15 0RF meloxicam 15 mg tablet 15 mg PO DAILY hydroxyzine pamoate [Vistaril] 25 mg capsule 50 mg PO BEDTIME PRN (Reason: for itching) Qty: 60 0RF triamcinolone acetonide 0.5 % cream 1 applic topical BID Qty: 15 0RF Rx Instructions: Apply BID x1-2 weeks on lesion on chest levothyroxine 88 mcg tablet 88 mcg PO .QOD Qty: 45 0RF levothyroxine 100 mcg tablet 100 mcg PO .QOD Qty: 45 0RF Referrals: Kate Moreno MD [Primary Care Provider] - Stand Alone Forms: Patient Portal/API/Survey
--- NOTE | 2024-05-21 01:13 | PC.NURSE ---
pt states she has had a lot of sinus drainage that is now draining down into her abdomen and chest causing her chest and upper abdomen to hurt, pt is tender in the upper abd and c/o pain with inspiration
--- NOTE | 2024-05-21 01:20 | DI.CT.S_ITS ---
PROCEDURE: CT ABDOMEN PELVIS W CON INDICATIONS: epigastric pain TECHNIQUE: After the administration of intravenous contrast, axial sections acquired from the lung bases to the pubic symphysis. Coronal and sagittal reformats were performed. For radiation dose reduction, the following was used: automated exposure control, adjustment of mA and/or kV according to patient size. COMPARISON: None. FINDINGS: Image quality: Diagnostic Lower chest: Basal atelectasis. Heart size is at the upper limit of normal. Liver: Unremarkable Gallbladder and biliary system: Gallbladder is distended. CBD is also distended at about 1.1 cm. Pancreas: [id number] parenchymal atrophy. Minimally ectatic duct. Spleen: Nonenlarged Adrenals: No discrete nodules Kidneys: No solid mass. No hydronephrosis. Left lower pole focal scarring. Vessels and lymph nodes: No abdominal aortic aneurysm. There are moderate atherosclerotic calcifications of the aorta and its branches. No pathologic lymph nodes by size criteria Bowel and peritoneum: No evidence of small bowel obstruction. No drainable ascites. There is moderate overall fecal loading. Nondilated appendix. Body wall: Unremarkable Pelvis: Bladder is unremarkable. Reproductive organs are unremarkable on limited CT evaluation Bones: Bilateral hip arthroplasties. Left sacroiliac and lumbosacral fusion hardware. No aggressive appearing osseous finding. IMPRESSION: Distended gallbladder and CBD. Correlate LFTs and consider ultrasound or MRCP to further evaluate if clinically necessary. Other findings as above. No significant changes from the preliminary report Dictated by: Nimesh Mcintosh M.D. on 05/21/2024 at 8:05 Approved by: Nimesh Mcintosh M.D. on 05/21/2024 at 8:10
[2024-05-21] MEDS: KETOROLAC 30 MG/ML VIAL 15 MG IV (01:29)
[2024-05-21 01:30] LABS: Add Manual Diff / Slide Review NO; Basophils Absolute Auto 100 /uL (0-100); Basophils Percent Auto 1.1 % (0-2); Eosinophils Absolute Auto 200 /uL (0-450); Eosinophils Percent Auto 2.5 % (2-4); Hematocrit 42.4 % (36-46); Lymphocytes Absolute Auto 2000 /uL (1100-4500); Lymphocytes Percent Auto 28.3 % (25-40); Mean Corpuscular HGB Conc 32.9 % (30-36); Mean Corpuscular Hemoglobin 31.3 PG (26-34); Monocytes Absolute Auto 600 /uL (0-900); Monocytes Percent Auto 8.1 % (3-14); Neutrophils Absolute Auto 4300 /uL (1500-7000); Platelet Count 177 X10^3/uL (150-400); Red Blood Cell Count 4.46 X10^6/uL (4.0-5.2); Red Cell Distribution Width 13.6 % (11.6-14.8); White Blood Cell Count 7.2 X10^3/uL (4.5-11.0)
[2024-05-21] MEDS: FAMOTIDINE 20 MG/2 ML VIAL IV (01:30)
[2024-05-21] MEDS: ONDANSETRON 4 MG/2 ML INJ IV (01:30)
[2024-05-21 01:37] LABS: INR 0.9 (0.9-1.3); Prothrombin Time 9.8 SECONDS (9.4-12.5)
[2024-05-21 01:39] LABS: PTT Partial Thromboplastin Tim 31 SECONDS (25.1-36.5)
[2024-05-21 01:51] LABS: Magnesium 1.7 mg/dL (1.6-2.3)
[2024-05-21 02:05] LABS: Alanine Aminotransferase 47 IU/L (<35); Albumin 4.2 g/dL (3.5-5.0); Albumin Globulin Ratio 1.6 (1.0-2.8); Alkaline Phosphatase 97 U/L (38-126); Aspartate Aminotransferase 87 IU/L (14-36); BUN Creatinine Ratio 20.9 (6-22); Bilirubin Total 0.5 mg/dL (0.2-1.3); Blood Urea Nitrogen 18 mg/dL (7-17); Calcium 9.6 mg/dL (8.4-10.2); Carbon Dioxide 20 mmol/L (22-32); Chloride 106 mmol/L (98-107); Creatine Kinase 76 U/L (30-135); Estimated Glomerular Filt Rate > 60 mL/min (>60); Globulin 2.7 g/dL (1.7-4.1); Glucose 205 mg/dL (80-110); HEMOLYSIS < 15 (0-50); Lipase 167 U/L (23-300); NT-proBNP (BNP-Adult 18+) 368 pg/mL (<450); Potassium 4.8 mmol/L (3.4-5.1); Sodium 139 mmol/L (137-145); Total Protein 6.9 g/dL (6.3-8.2)
[2024-05-21 02:19] LABS: Troponin I 0.722 ng/mL (0.01-0.034)
[2024-05-21 02:23] LABS: Influenza A - CEPHEID Flu A POSITIVE (NEGATIVE); Influenza B - CEPHEID Flu B NEGATIVE (NEGATIVE); Respiratory Syncytial Virus Negative (Negative)
[2024-05-21 02:28] LABS: COVID-19 CEPHEID 4-PLEX PCR Negative (Negative)
[2024-05-21] MEDS: NITROGLYCERIN 50 MG/250 ML INFUS..BTL IV (03:01)
[2024-05-21] MEDS: SODIUM CHLORIDE 0.9% 1,000 ML 1000 ML IV (03:15)
--- NOTE | 2024-05-21 03:15 | PC.NURSE ---
pt's BP dropped to 88/62, Dr Mcclendon informed and nitro stopped, pt states she is having minimal cp mostly just some epigastric discomfort at this time
[2024-05-21] MEDS: HEPARIN DRIP 25,000 UNIT/500 ML IV.SOLN 14.043 UNIT IV (03:17)
[2024-05-21] MEDS: HEPARIN 5,000 UNIT/ML VIAL 3500 UNIT IV (03:18)
[2024-05-21] MEDS: LORazepam 2 MG/ML INJ 0.5 MG IV (04:00)
--- NOTE | 2024-05-21 04:27 | PC.NURSE ---
recliner placed in room for daughter and daughter given a blanket, lights dimmed
--- NOTE | 2024-05-21 05:29 | EKG_ITS ---
[facility] [address] [place] [address] Test Date: 2024-05-21 Pat Name: Hilda Wheeler Department: [facility] Room: Gender: Female [employer] Operator: : 1945 Requested By: Order Number: [id number] Reading MD: Froilan Albright Measurements Intervals [place] Rate: 95 P: 68 NV: 188 QRS: -66 QRSD: 92 T: 68 QT: 392 QTc: 492 Interpretive Statements Normal sinus rhythm Left anterior fascicular block Cannot rule out Anteroseptal infarct , age undetermined Electronically Signed On 05-21-2024 7:22:43 PST by Froilan Albright
== END 2024-05-21 06:58 | disposition home or self-care (01) ==
PROVIDERS: Emergency Provider Student in an Organized Health Care Education/Training Program; PCP Family Medicine
DX: I21.4 Non-ST elevation (NSTEMI) myocardial infarction (principal); J10.1 Influenza due to other identified influenza virus with other respiratory manifestations; R07.9 Chest pain, unspecified; R06.02 Shortness of breath; R10.9 Unspecified abdominal pain; R29.6 Repeated falls
CPT/HCPCS: 0241U; 36415; 71045; 74177; 80053; 82550; 83690; 83735; 83880; 84484; 85025; 85610; 85730; 93005; 96365; 96366; 96375; 99284; 99285; J1644; J1885; J2060; J2405; Q9967

== ENCOUNTER → 2024-07-24 07:39 | Outpatient (CLI) | payer MEDICARE, SELFPAY ==
--- NOTE | 2024-07-24 07:42 | DI.ECHO.S_ITS ---
[facility] : : [address] : : [place] : : [address] : : Phone: [phone] Echocardiogram Report + + :Name: REED HARTMAN Study Date: 07/24/2024 Height: 67 in : :[facility] ReadingLocation: Weight: 112 lb : : Gender: Female BSA: 1.6 m2 : :: 1945 Age: 78 yrs BP: 117/77 mmHg: :Reason For Study: STRESS INDUCED CARDIOMYOPATHY : :Ordering Physician: KEITH, : :CECY Méndez Performed By: Moe Rosenberg : :Referring: CECY MENDEZ : + + Interpretation Summary The ejection fraction is estimated to be 50-55%. Diastolic function could not be accurately assessed due to contradictory data. The left atrium is mildly dilated. The right ventricle is normal in size and function. There is mild aortic regurgitation. There is mild to moderate tricuspid regurgitation. The right ventricular systolic pressure is estimated to be at least 32 mmHg based on an estimated right atrial pressure of 3 mm Hg. Compared to the prior study 05/22/2024, the ejection fraction has increased and the segmental wall motion abnormalities have improved. Procedure: A two-dimensional transthoracic echocardiogram with color flow and Doppler was performed. The study quality was technically good. Comparison is made with the echocardiogram of 05/22/24. The patient was in normal sinus rhythm during the exam. Left Ventricle: The left ventricle is normal in size. There is normal left ventricular wall thickness. There is no ventricular septal defect visualized. The ejection fraction is estimated to be 50-55%. Diastolic function could not be accurately assessed due to contradictory data. Right Ventricle: The right ventricle is normal in size and function. Atria: The left atrium is mildly dilated. Right atrial size is normal. There is no Doppler evidence for an atrial septal defect. Mitral Valve: The mitral valve leaflets appear normal. There is no evidence of stenosis, fluttering, or prolapse. There is trace mitral regurgitation. Aortic Valve: The aortic valve is trileaflet. The aortic valve opens well. There is no aortic valve stenosis. There is mild aortic regurgitation. Tricuspid Valve: The tricuspid valve leaflets are thin and pliable. There is mild to moderate tricuspid regurgitation. The right ventricular systolic pressure is estimated to be at least 32 mmHg based on an estimated right atrial pressure of 3 mm Hg. Pulmonic Valve: The pulmonic valve leaflets are thin and pliable; valve motion is normal. There is trace pulmonic regurgitation. Great Vessels: The aortic root is normal size. The dimensions of the ascending aorta are normal. The pulmonary artery is normal size. The IVC is of normal diameter and collapses greater than 50% with a sniff. This suggests a low right atrial pressure of 3 mm Hg. Pericardium/ Pleura There is no pericardial effusion. There is no pleural effusion. MMode/2D Measurements & Calculations LVIDd: 3.9 cm LVOT diam: 1.9 cm LVIDs: 2.7 cm Ao root diam: 3.2 cm FS: 31.1 % asc Aorta Diam: 3.1 cm EPSS: 0.73 cm IVSd: 1.1 cm LVPWd: 1.0 cm LV parmar. diameter/BSA (cm/m^2): 2.4 LV sys. diameter/BSA (cm/m^2): 1.7 LA A2 area: 20.3 cm2 RA long axis: 4.4 cm LA A4 area: 17.1 cm2 RA area: 14.1 cm2 LA length (vol): 5.2 cm RA vol: 38.5 ml LA vol: 57.2 ml RA : 24.4 ml/m2 LA vol index: 36.2 ml/m2 IVC diam: 1.7 cm RVD1 (basal): 3.7 cm RVD2 (mid): 2.6 cm TAPSE: 3.3 cm Doppler Measurements & Calculations Ao V2 max: 118.2 cm/sec LVOT Max Jed: 77.5 cm/sec Ao V2 mean: 87.4 cm/sec LV V1 max P.4 mmHg Ao max P.6 mmHg LV V1 VTI: 16.9 cm Ao mean P.3 mmHg CELY(I,D): 1.9 cm2 Ao V2 VTI: 26.3 cm CELY(V,D): 1.9 cm2 sev ratio: 0.64 CELY indexed to BSA (cm^2/m^2): 1.2 MV E max jed: 56.1 cm/sec TR max jed: 269.8 cm/sec MV A max jed: 58.1 cm/sec TR max P.1 mmHg MV E/A: 0.97 PA V2 max: 92.3 cm/sec Med Peak E' Jed: 5.4 cm/sec PA V2 mean: 63.4 cm/sec E/E' med: 10.4 PA mean P.7 mmHg Lat Peak E' Jed: 9.1 cm/sec PA pr(Accel): 49.9 mmHg E/E' lat: 6.2 E/e' average: 8.3 MV dec time: 0.20 sec [facility] 49.1 ml Reading Physician:12:34 PM
== END ==
LOC: ECHO 07:40
PROVIDERS: PCP Family Medicine; Referring Provider Internal Medicine Cardiovascular Disease; Visit Provider Internal Medicine Cardiovascular Disease
DX: I51.81 Takotsubo syndrome (principal); I08.2 Rheumatic disorders of both aortic and tricuspid valves
CPT/HCPCS: 93306

== ENCOUNTER → 2024-08-27 16:10 | Outpatient (CLI) | payer MEDICARE, SELFPAY ==
--- NOTE | 2024-08-27 16:11 | DI.RAD.S_ITS ---
PROCEDURE: XR WRIST LT MIN 3V INDICATIONS: r/o L wrist fracture, OA baseline TECHNIQUE: 4 views of the wrist were acquired. COMPARISON: None. FINDINGS: Bones: No fractures or dislocations. Osteoarthritic changes are noted throughout wrist joints. No suspicious bony lesions. Soft tissues: No suspicious soft tissue calcifications. IMPRESSION: No acute wrist fracture or dislocation. Moderate wrist joint osteoarthritis . Dictated by: Wilder Pham M.D. on 08/27/2024 at 16:35 Approved by: Wilder Pham M.D. on 08/27/2024 at 16:36
== END ==
PROVIDERS: PCP Family Medicine; Referring Provider Chiropractor; Visit Provider Chiropractor
DX: M25.532 Pain in left wrist (principal); M19.032 Primary osteoarthritis, left wrist
CPT/HCPCS: 73110

== ENCOUNTER → 2024-09-25 17:06 | Outpatient (CLI) | payer MEDICARE, SELFPAY ==
--- NOTE | 2024-09-25 17:07 | DI.MRI.S_ITS ---
PROCEDURE: MR WRIST LT WO/W CON INDICATIONS: left wrist mass TECHNIQUE: Noncontrast coronal proton density fast spin echo and T2 fast spin echo with fat saturation; coronal 3-D gradient echo, axial T1 spin echo and T2 fast spin echo with fat saturation, axial T1 spin echo with fat saturation, sagittal T1 spin echo through the wrist. Post-contrast axial, coronal, and sagittal T1 spin echo with fat saturation through the wrist. COMPARISON: [facility], CR, XR WRIST LT MIN 3V, 08/27/2024, 15:15. FINDINGS: Image quality: Excellent. Bones and cartilage: Severe degenerative changes at the 1st carpometacarpal joint, with subchondral marrow edema and joint space narrowing. Moderate degenerative changes of the triscaphe joint, with subchondral cystic changes and joint space narrowing. There is extensive marrow edema and subchondral cystic changes of the scaphoid, without fracture line, favoring degenerative. There is severe degenerative changes of the pisiform and the triquetral articulation, with diffuse marrow edema of the triquetrum. Ulnar positive variance. Mild subchondral marrow edema in the proximal, ulnar aspect of the lunate, raising concern for ulnar impaction syndrome. Small intercarpal joint effusion. Carpal ligaments: The scapholunate and lunotriquetral ligaments appear intact. In the absence of intra-articular contrast, the extrinsic carpal ligaments are not well identified. On sagittal images, the pisohamate ligament appears intact. Triangular fibrocartilage complex: Full-thickness tear of the central disc. Tendons and soft tissues: No suspicious soft tissue enhancement. The carpal tunnel structures appear normal, including the median nerve. The ulnar nerve appears normal within Guyon's canal. All six extensor tendon compartments demonstrate normal morphology, without pathologic tendon sheath fluid. 7 mm ganglion cyst volar to the distal radius. IMPRESSION: 1. Findings suggestive of ulnar impaction syndrome. Ulnar positive variance. 2. Full-thickness tear of the central disc of the triangular fibrocartilage. 3. Severe degenerative changes of the 1st carpometacarpal, triscaphe, and the pisiform and triquetrum articulation. Marked marrow edema in the scaphoid and the triquetrum, favoring degenerative. 4. 7 mm ganglion cyst volar to the distal radius. Dictated by: Danae Wheeler M.D. on 09/26/2024 at 9:19 Approved by: Danae Wheeler M.D. on 09/26/2024 at 9:33
== END ==
PROVIDERS: Family Provider Family Medicine; PCP Family Medicine; Referring Provider Orthopaedic Surgery; Visit Provider Orthopaedic Surgery
DX: S63.592A Other specified sprain of left wrist, initial encounter (principal); M67.432 Ganglion, left wrist; R22.32 Localized swelling, mass and lump, left upper limb; M25.432 Effusion, left wrist
CPT/HCPCS: 73223; A9579

== ENCOUNTER → 2025-01-09 11:10 | Outpatient (CLI) | payer MEDICARE, SELFPAY ==
[2025-01-09 12:27] LABS: Add Manual Diff / Slide Review NO; Hematocrit 34.4 % (36-46); Hemoglobin 11.3 g/dL (12.0-16.0); Lymphocytes Absolute Auto 1600 /uL (1100-4500); Mean Corpuscular HGB Conc 32.7 % (30-36); Mean Corpuscular Hemoglobin 30.9 PG (26-34); Mean Corpuscular Volume 94.6 fL (80-100); Platelet Count 212 X10^3/uL (150-400)
[2025-01-09 12:44] LABS: HEMOLYSIS < 15 (0-50); Iron 116 ug/dL (37-170)
[2025-01-09 12:47] LABS: Alanine Aminotransferase 26 IU/L (<35); Albumin 3.9 g/dL (3.5-5.0); Albumin Globulin Ratio 1.7 (1.0-2.8); Alkaline Phosphatase 84 U/L (38-126); Blood Urea Nitrogen 24 mg/dL (7-17); Calcium 9.2 mg/dL (8.4-10.2); Carbon Dioxide 28 mmol/L (22-32); Chloride 104 mmol/L (98-107); Estimated Glomerular Filt Rate > 60 mL/min (>60); Globulin 2.3 g/dL (1.7-4.1); Glucose 100 mg/dL (70-99); HEMOLYSIS < 15 (0-50); Potassium 5.1 mmol/L (3.4-5.1); Sodium 140 mmol/L (137-145); Total Protein 6.2 g/dL (6.3-8.2)
[2025-01-09 13:00] LABS: Percent Iron Saturation 34 % (15-50); Total Iron Binding Capacity 345 ug/dL (265-497); Transferrin 275 mg/dL (206-381)
[2025-01-09 13:17] LABS: TSH w/ Reflex to FT4 0.13 uIU/mL (0.47-4.68)
[2025-01-09 13:22] LABS: Ferritin 28 ng/mL (11-264)
[2025-01-09 13:36] LABS: Vitamin B12 Reflex MMA if <400 249 pg/mL (239-931)
[2025-01-09 13:41] LABS: Free T4, Direct Thyroxine 1.47 ng/dL (0.78-2.19)
== END ==
PROVIDERS: Family Provider Family Medicine; PCP Family Medicine; Referring Provider Family Medicine; Visit Provider Family Medicine
DX: L65.9 Nonscarring hair loss, unspecified (principal); L60.9 Nail disorder, unspecified; R53.83 Other fatigue; R20.2 Paresthesia of skin; R79.89 Other specified abnormal findings of blood chemistry
CPT/HCPCS: 36415; 80053; 82607; 82728; 83540; 83550; 83921; 84439; 84443; 84630; 85025

== ENCOUNTER 2025-01-17 10:45 | Outpatient (RCR) | payer MEDICARE, SELFPAY ==
--- NOTE | 2024-09-18 16:00 | PT.OIE ---
Current Diagnoses Other spondylosis with myelopathy, cervical region (09/18/24) Past Medical History (Last Updated 05/30/24 @ 17:34 by Kate Moreno MD) Ankle pain, right Back pain Hypothyroidism Insomnia Knee pain Non-ST elevation GA (NSTEMI) Orthostatic hypotension Spinal osteoarthritis Takotsubo cardiomyopathy Visit Care Team Role Provider Type Kate Moreno MD Family Provider Physician Primary Care Provider Specialty: Family Practice [facility] Address: [address] [place] [address], [id number] Fax: Email: [email or web address] Attending Provider Physician Referring Provider Specialty: Medical Address: [address] [place] [address], [phone] Email: Physical Therapy Initial Evaluation PT-OP-A Visit Information Start: 09/18/24 12:22 Freq: Status: Active Protocol: Document 09/18/24 13:00 [facility] (Rec: 09/18/24 13:24 [facility] [id number]) Out-Patient Physical Therapy Visit Information Visit Information Visit Type Initial Evaluation Visit Start Time 13:00 Visit Stop Time 13:45 Visit Number 1 Evaluation Information Evaluation Date 09/18/24 PT-OP-B Current Condition Start: 09/18/24 12:22 Freq: Status: Active Protocol: Document 09/18/24 13:00 [facility] (Rec: 09/18/24 13:24 [facility] [id number]) Current Condition History of Current Condition Onset Date fall Current Complaints neck pain that limits driving, sewing, and quilting History of Current 79 year old female with chief complaints of neck pain Condition that is worse on the right side that worsened after a fall at her daughter's house. Hilda reports last fall 2023 she opened the door to her daughters house and her two dogs came running at her and grabbed on to her and she did a face plant onto the tile floor. She broke her teeth and hit her jaw. Pain has gotten worse since that time Pain starts on the right side of her neck and goes up to her jaw and cranium. she reports feeling like a bobble head. She feels like she has clicking and her neck catches when she tries to look over her shoulder. She has a history of cervical laminectomy in 1996. When she driving she is having to turn her body and it is hard to turn her head. She experiences shooting pain into her shoulder . She likes to sew and quilt and looking down is painful and difficult for her to do. Hilda likes to make quilts and her left wrist has been very sore and painful and she is limited with her ability to quilt. She has been taking 2 alieve every 12 hours.79 year Prior Treatments and Past medical history includes scoliosis, cervical Tests laminectomy in 1996, 9 spinal surgeries including 2 fusions since 1996 Treatment Goals Patient/Caregiver treatment goals include being able to drive with Goals decreased pain and being able to quilt and sew without increased pain Prior Functional Status Baseline Function- Independent ADL's Baseline Function- Independent Mobility Current Functional Impairments (Reported) Functional pt is very limited with ADL's and is currently living Limitations- ADL's with her daughter for assistance Functional Pt is limited with her hobbies of quilting and sewing Limitations- due to increased neck pain Recreation/Hobbies Functional pt is able to drive short distances but is limited with Limitations- Other driving due to pain with turning her neck PT-OP-C Subjective Start: 09/18/24 12:22 Freq: Status: Active Protocol: Document 09/18/24 13:00 [facility] (Rec: 09/18/24 17:21 [facility] [id number]) Patient Questionnaires Neck Disability Index NDI Score 31 Neck Disability 60 to 79% Impaired (Score 30-39) Index Impairment OP-PT Pain Assessment Pain Assessment Grid Paper Pain Yes Assessment Grid Completed Location right upper trapezius and lateral neck Intensity 9 Description Aching,Sharp,Spasm,Stabbing Other Pain driving, quilting, sewing Aggravating Factors left lateral neck and upper traezius Intensity 9 Scale Used Numeric (0 - 10) Frequency Daily Pain Duration driving, sewing, quilting all increase pain suboccitpital region Intensity 6 Scale Used Numeric (0 - 10) Description Aching,Spasm,Stabbing,Tender PT-OP-F Manual Assessment Start: 09/18/24 12:22 Freq: Status: Active Protocol: Document 09/18/24 13:00 [facility] (Rec: 09/18/24 17:45 [facility] [id number]) Manual Assessments Soft Tissue Assessment Soft Tissue Mobility tightness and guarding in the SCM musculature B R>L Assessment tightness and guarding of the suboccipital musculature right upper trapezius elevated with guarding and tightness Joint Mobility Assessment Joint Mobility pt is restricted in all ROM of the cervical spine and Assessment she presents with severe scoliosis with curve to the right PT-OP-J Posture/Palpation/Skin Start: 09/18/24 12:22 Freq: Status: Active Protocol: Document 09/18/24 13:00 [facility] (Rec: 09/18/24 17:45 [facility] [id number]) Posture Evaluation Position Sitting Evaluation View Posterior Head/C-Spine Posture Flexed T-Spine Posture Fixed Scoliosis on (R) Shoulder Posture (L) Rounded,(R) Rounded,(R) Elevated Baljeet Postural Classification System Baljeet Postural Anterior/Posterior Classifications Palpation Assessment Location suboccipital musculature Palpation Location bilateral suboccipiral musculatore Palpation Findings Soft Tissue Tightness,Spasm,Muscle Guarding PT-OP-K Range of Motion Start: 09/18/24 12:22 Freq: Status: Active Protocol: Document 09/18/24 13:25 [facility] (Rec: 09/18/24 13:29 [facility] [id number]) Cervical Spine Range of Motion Cervical Spine Active Testing Position Supine Flexion 30 Extension 5 Rotation Left 15 Rotation Right 10 Lateral Flexion Left 10 Lateral Flexion 10 Right ROM Limitations Soft Tissue Tightness Comments pt sits with head tipped to the left, right rotation and Sidebending increases pain pt likes cervical flexion, pain with extension PT-OP-Q Treatments Start: 09/18/24 12:22 Freq: Status: Active Protocol: Document 09/18/24 13:00 [facility] (Rec: 09/18/24 16:29 [facility] [id number]) Therapeutic Exercises Supine Exercises seated shoulder circles backwards Reps/Minutes x 10 reps 2 times per day supine gentle chin tuck Reps/Minutes hold 5 seconds and repeat 10 times Comments cues to relax the anterior neck Manual Therapy Treatment Consent Patient gave verbal Yes consent for manual treatment Soft Tissue Mobilization STM for the upper traps bilaterally Intensity/Depth Superficial Body Position Hooklying suboccipital release Mobilization Type Myofascial Release Intensity/Depth Superficial Body Position Hooklying PT-OP-T Assessment and Plan Start: 09/18/24 12:22 Freq: Status: Active Protocol: Document 09/18/24 13:00 [facility] (Rec: 09/18/24 17:22 [facility] [id number]) Physical Therapy Assessment Rehab Potential Rehabilitation Good Potential Evaluation Complexity Number of Personal 3 or More Factors/ Comorbidities Number of Body 4 or More Systems Impaired Clinical Evolving Presentation at Evaluation Impairments Impairments Activity Tolerance,Functional Activities,Functional Mobility,Pain,Posture,ROM,Soft Tissue Mobility Goals 3 Impairment muscle guarding and spams of the right>left upper trapezius, SCM, and scalenes B Group Home Goal (LTG) Hilda presents with decreased muscle guarding and spasm of the upper trapezius, SCM, and scalene musculature LTG Duration 8 weeks 2 Impairment Pain and limited Cervical ROM Short Term Goal (STG Hilda is educated on a HEP for cervical ROM and ) mobility STG Duration 4 weeks [employer] Support Goal (LTG) Improved cervical ROM and Hilda is better able to turn her head while driving LTG Duration 12 weeks 1 Impairment cervical spine pain rated 6-9 out of 10 that limits Hilda's ability to drive, sew, and quilt [employer] Goal (LTG) Hilda reports a overall reduction in cervical pain and is able to return to her activities of driving, sewing, and quilting LTG Duration 8 weeks+ Assessment Summary Assessment 79 year old female who presents to PT with chief complaints of neck pain that was increased this past fall of 2023 after a fall forward landing on her face on a tile floor. She reports she was walking into her daughters home and her daughters dogs jumped up on her and caught her off balance and she fell forward hard onto the tile floor. She broke her teeth and feels that she also hurt her jaw. She has a history of cervical lamintectory in 1996 and has suffered with chronic neck pain but symptoms are exaggerated at this time. Hilda describes pain in the back of her head and right>left upper trapezius. She has pain with neck ROM and looking over her shoulder to drive is very difficult. She likes to quilt and sew and has not been able to due to increased pain. She reports feeling like her head is a bobble head and she doesn' t have support. Hilda presents with severe scoliosis with curvature to the right and she has had multiple spinal fusion surgeries With exam today Hilda sits with her head tilted to the right. She reports she has always had this tilt with her scoliosis however it is feeling more tilted now. She has a difficulty with cervical ROM and feels her nexk popping and grinding when she is attempting to move her neck. Sidebending and rotation to the left are the most challenging for her. Her right upper trapezius is guarded and tight and her right shoulder is elevated as compared to her left. The SCM musculature is guarded B and it is difficult for Hilda to nod her head without overuse of the SCM. She tests WNL for UE strength and denies any radicular symptoms. She does present with arthritic symptoms in her hands however this appears to be separate from her cervical pain. I worked today on gentle STM for the suboccipitals and introduced C1/C2 flexion with a gentle chin nod trying not to activate the SCM musculature. Hilda tolerated this well. She is a good candidate for PT. Physical Therapy Plan Frequency and Duration Frequency of 2x/Week Treatment Duration of 8 treatment (weeks) Plan of Care Start 09/18/24 Date Plan of Care End 11/13/24 Date Therapeutic Interventions Therapeutic Home Exercise Program,Manual Therapy,Neuromuscular Re- Interventions education,Patient/Caregiver Education,Self-Care/Home Management,Soft Tissue Mobilization,Therapeutic Exercises Next Visit Focus/Plan Next Note Type Treatment Note Next Visit Plan Try suboccipital float next visit, work on gentle STM for the neck, start adding in gentle cervical ROM, review chin tucks and shoulder circles and progress as tolerated with postural exercises
--- NOTE | 2024-09-20 10:46 | PT.OTN ---
Current Diagnoses Other spondylosis with myelopathy, cervical region (09/20/24) Physical Therapy Treatment Note PT-OP-A Visit Information Start: 09/18/24 12:22 Freq: Status: Active Protocol: Document 09/20/24 09:02 [facility] (Rec: 09/20/24 09:51 [facility] Laptop) Out-Patient Physical Therapy Visit Information Visit Information Visit Type Treatment Note Visit Note Visit [email or web address]: [email or web address] Visit Start Time 09:03 Visit Stop Time 09:48 Visit Number 2 Number of COAL [employer]AM DRIVER Visits 1 Evaluation Information Evaluation Date 09/18/24 PT-OP-B Current Condition Start: 09/18/24 12:22 Freq: Status: Active Protocol: Document 09/18/24 13:00 [facility] (Rec: 09/18/24 13:24 [facility] [id number]) Current Condition History of Current Condition Onset Date Fall of 2023 Current Complaints neck pain that limits driving, sewing, and quilting History of Current 79 year old female with chief complaints of neck pain Condition that is worse on the right side that worsened after a fall at her daughter's house. Hilda reports last fall 2023 she opened the door to her daughters house and her two dogs came running at her and grabbed on to her and she did a face plant onto the tile floor. She broke her teeth and hit her jaw. Pain has gotten worse since that time Pain starts on the right side of her neck and goes up to her jaw and cranium. she reports feeling like a bobble head. She feels like she has clicking and her neck catches when she tries to look over her shoulder. She has a history of cervical laminectomy in 1996. When she driving she is having to turn her body and it is hard to turn her head. She experiences shooting pain into her shoulder . She likes to sew and quilt and looking down is painful and difficult for her to do. Hilda likes to make quilts and her left wrist has been very sore and painful and she is limited with her ability to quilt. She has been taking 2 alieve every 12 hours.79 year Prior Treatments and Past medical history includes scoliosis, cervical Tests laminectomy in 1996, 9 spinal surgeries including 2 fusions since 1996 Treatment Goals Patient/Caregiver treatment goals include being able to drive with Goals decreased pain and being able to quilt and sew without increased pain Prior Functional Status Baseline Function- Independent ADL's Baseline Function- Independent Mobility Current Functional Impairments (Reported) Functional pt is very limited with ADL's and is currently living Limitations- ADL's with her daughter for assistance Functional Pt is limited with her hobbies of quilting and sewing Limitations- due to increased neck pain Recreation/Hobbies Functional pt is able to drive short distances but is limited with Limitations- Other driving due to pain with turning her neck PT-OP-C Subjective Start: 09/18/24 12:22 Freq: Status: Active Protocol: Document 09/20/24 09:02 [facility] (Rec: 09/20/24 09:51 [facility] Laptop) OP-PT Subjective Patient Comments Patient Comments Patient reports she is the same. Patient reports yesterday the pain went up the left and right side of her neck, comments, It was not good. Hilda rates pain 2/10 start of session. PT-OP-F Manual Assessment Start: 09/18/24 12:22 Freq: Status: Active Protocol: Document 09/18/24 13:00 [facility] (Rec: 09/18/24 17:45 [facility] [id number]) Manual Assessments Soft Tissue Assessment Soft Tissue Mobility tightness and guarding in the SCM musculature B R>L Assessment tightness and guarding of the suboccipital musculature right upper trapezius elevated with guarding and tightness Joint Mobility Assessment Joint Mobility pt is restricted in all ROM of the cervical spine and Assessment she presents with severe scoliosis with curve to the right PT-OP-J Posture/Palpation/Skin Start: 09/18/24 12:22 Freq: Status: Active Protocol: Document 09/18/24 13:00 [facility] (Rec: 09/18/24 17:45 [facility] [id number]) Posture Evaluation Position Sitting Evaluation View Posterior Head/C-Spine Posture Flexed T-Spine Posture Fixed Scoliosis on (R) Shoulder Posture (L) Rounded,(R) Rounded,(R) Elevated Baljeet Postural Classification System Baljeet Postural Anterior/Posterior Classifications Palpation Assessment Location suboccipital musculature Palpation Location bilateral suboccipiral musculatore Palpation Findings Soft Tissue Tightness,Spasm,Muscle Guarding PT-OP-K Range of Motion Start: 09/18/24 12:22 Freq: Status: Active Protocol: Document 09/18/24 13:25 [facility] (Rec: 09/18/24 13:29 [facility] [id number]) Cervical Spine Range of Motion Cervical Spine Active Testing Position Supine Flexion 30 Extension 5 Rotation Left 15 Rotation Right 10 Lateral Flexion Left 10 Lateral Flexion 10 Right ROM Limitations Soft Tissue Tightness Comments pt sits with head tipped to the left, right rotation and Sidebending increases pain pt likes cervical flexion, pain with extension PT-OP-Q Treatments Start: 09/18/24 12:22 Freq: Status: Active Protocol: Document 09/20/24 09:02 [facility] (Rec: 09/20/24 09:51 [facility] Laptop) Therapeutic Exercises Supine Exercises hands behind head pec stretc Reps/Minutes initiated, not nicole pec stretch Supine Exercise Name chest veterans services specialist position hooklying HEP Side bilateral Comments tactile cues for breathing from diaphgram CS rotation AROM Supine Exercise Name on occipital float, positioned in chest veterans services specialist Side bilateral Reps/Minutes 3 min Comments verbal cues to perform in pain free range supine gentle chin tuck Reps/Minutes X8 for 3 sec Comments VC and visual for avoiding flexion and performing chin tuck Sitting Exercises UT stretch Side bilateral Reps/Minutes 30 sec X 2 each side Comments VC to hold chair, avoid rotation, and to perform to stretch avoiding pain Manual Therapy Treatment Consent Patient gave verbal Yes consent for manual treatment Soft Tissue Mobilization STM for the upper traps bilaterally Body Location Also levator scap, scalenes at clavicle and CS paraspinals. Intensity/Depth Moderate Body Position Sitting suboccipital release Mobilization Type Sustained Pressure Intensity/Depth Moderate Body Position Hooklying Joint Mobilizations scapular mobilization Joint Bilat Direction into dep and add grade II, sidelying PT-OP-T Assessment and Plan Start: 09/18/24 12:22 Freq: Status: Active Protocol: Document 09/20/24 09:02 [facility] (Rec: 09/20/24 09:51 [facility] Laptop) Physical Therapy Assessment Goals 3 Impairment muscle guarding and spams of the right>left upper trapezius, SCM, and scalenes B [facility] Goal (LTG) Hilda presents with decreased muscle guarding and spasm of the upper trapezius, SCM, and scalene musculature LTG Duration 8 weeks 2 Impairment Pain and limited Cervical ROM Short Term Goal (STG Hilda is educated on a HEP for cervical ROM and ) mobility STG Duration 4 weeks Fdc Goal (LTG) Improved cervical ROM and Hilda is better able to turn her head while driving LTG Duration 12 weeks 1 Impairment cervical spine pain rated 6-9 out of 10 that limits Hilda's ability to drive, sew, and quilt [employer] Engineer Goal (LTG) Hilda reports a overall reduction in cervical pain and is able to return to her activities of driving, sewing, and quilting LTG Duration 8 weeks+ Assessment Summary Assessment Patient rates pain 4/10 R side neck end of session. AROM CS rotation R with visible increase end of session . L with no visible improvement. Physical Therapy Plan Frequency and Duration Frequency of 2x/Week Treatment Duration of 8 treatment (weeks) Plan of Care Start 09/18/24 Date Plan of Care End 11/13/24 Date Next Visit Focus/Plan Next Note Type Treatment Note Next Visit Plan Try suboccipital float next visit, work on gentle STM for the neck, start adding in gentle cervical ROM, review chin tucks and shoulder circles and progress as tolerated with postural exercises
--- NOTE | 2024-09-25 16:45 | PT.OTN ---
Current Diagnoses Other spondylosis with myelopathy, cervical region (09/27/24) Physical Therapy Treatment Note PT-OP-A Visit Information Start: 09/18/24 12:22 Freq: Status: Active Protocol: Document 09/25/24 11:30 [facility] (Rec: 09/25/24 11:34 [facility] [id number]) Out-Patient Physical Therapy Visit Information Visit Information Visit Type Treatment Note Visit Start Time 11:30 Visit Stop Time 12:15 Visit Number 3 Number of TRACK REPAIR SUPERVISOR Visits 0 PT-OP-B Current Condition Start: 09/18/24 12:22 Freq: Status: Active Protocol: Document 09/18/24 13:00 [facility] (Rec: 09/18/24 13:24 [facility] [id number]) Current Condition History of Current Condition Onset Date Fall of 2023 Current Complaints neck pain that limits driving, sewing, and quilting History of Current 79 year old female with chief complaints of neck pain Condition that is worse on the right side that worsened after a fall at her daughter's house. Hilda reports last fall 2023 she opened the door to her daughters house and her two dogs came running at her and grabbed on to her and she did a face plant onto the tile floor. She broke her teeth and hit her jaw. Pain has gotten worse since that time Pain starts on the right side of her neck and goes up to her jaw and cranium. she reports feeling like a bobble head. She feels like she has clicking and her neck catches when she tries to look over her shoulder. She has a history of cervical laminectomy in 1996. When she driving she is having to turn her body and it is hard to turn her head. She experiences shooting pain into her shoulder . She likes to sew and quilt and looking down is painful and difficult for her to do. Hilda likes to make quilts and her left wrist has been very sore and painful and she is limited with her ability to quilt. She has been taking 2 alieve every 12 hours.79 year Prior Treatments and Past medical history includes scoliosis, cervical Tests laminectomy in 1996, 9 spinal surgeries including 2 fusions since 1996 Treatment Goals Patient/Caregiver treatment goals include being able to drive with Goals decreased pain and being able to quilt and sew without increased pain Prior Functional Status Baseline Function- Independent ADL's Baseline Function- Independent Mobility Current Functional Impairments (Reported) Functional pt is very limited with ADL's and is currently living Limitations- ADL's with her daughter for assistance Functional Pt is limited with her hobbies of quilting and sewing Limitations- due to increased neck pain Recreation/Hobbies Functional pt is able to drive short distances but is limited with Limitations- Other driving due to pain with turning her neck PT-OP-C Subjective Start: 09/18/24 12:22 Freq: Status: Active Protocol: Document 09/25/24 11:30 [facility] (Rec: 09/27/24 13:52 [facility] [id number]) OP-PT Subjective Patient Comments Patient Comments pt notes no changes in her pain levels at this point PT-OP-F Manual Assessment Start: 09/18/24 12:22 Freq: Status: Active Protocol: Document 09/18/24 13:00 [facility] (Rec: 09/18/24 17:45 [facility] [id number]) Manual Assessments Soft Tissue Assessment Soft Tissue Mobility tightness and guarding in the SCM musculature B R>L Assessment tightness and guarding of the suboccipital musculature right upper trapezius elevated with guarding and tightness Joint Mobility Assessment Joint Mobility pt is restricted in all ROM of the cervical spine and Assessment she presents with severe scoliosis with curve to the right PT-OP-J Posture/Palpation/Skin Start: 09/18/24 12:22 Freq: Status: Active Protocol: Document 09/18/24 13:00 [facility] (Rec: 09/18/24 17:45 [facility] [id number]) Posture Evaluation Position Sitting Evaluation View Posterior Head/C-Spine Posture Flexed T-Spine Posture Fixed Scoliosis on (R) Shoulder Posture (L) Rounded,(R) Rounded,(R) Elevated Baljeet Postural Classification System Baljeet Postural Anterior/Posterior Classifications Palpation Assessment Location suboccipital musculature Palpation Location bilateral suboccipiral musculatore Palpation Findings Soft Tissue Tightness,Spasm,Muscle Guarding PT-OP-K Range of Motion Start: 09/18/24 12:22 Freq: Status: Active Protocol: Document 09/18/24 13:25 [facility] (Rec: 09/18/24 13:29 [facility] [id number]) Cervical Spine Range of Motion Cervical Spine Active Testing Position Supine Flexion 30 Extension 5 Rotation Left 15 Rotation Right 10 Lateral Flexion Left 10 Lateral Flexion 10 Right ROM Limitations Soft Tissue Tightness Comments pt sits with head tipped to the left, right rotation and Sidebending increases pain pt likes cervical flexion, pain with extension PT-OP-Q Treatments Start: 09/18/24 12:22 Freq: Status: Active Protocol: Document 09/25/24 11:30 [facility] (Rec: 09/27/24 13:53 [facility] [id number]) Therapeutic Exercises Supine Exercises diaphragmatic breathing Reps/Minutes x 4 min hands behind head pec stretc Reps/Minutes x 10 reps Comments on the occipital float, pt was able to tolerate this today pec stretch Supine Exercise Name chest lump roller position hooklying HEP Side bilateral Comments tactile cues for breathing from diaphgram CS rotation AROM Supine Exercise Name on occipital float, positioned in chest lump roller Side bilateral Reps/Minutes 3 min Comments verbal cues to perform in pain free range supine gentle chin tuck Reps/Minutes x 10 reps, on occipital float Sidelying Exercises sidelying reach and pull with gentle thoracic rotation Reps/Minutes 10 reps each side with manual assistance Sitting Exercises UT stretch Side bilateral Reps/Minutes 30 sec X 2 each side Comments VC to hold chair, avoid rotation, and to perform to stretch avoiding pain Manual Therapy Treatment Consent Patient gave verbal Yes consent for manual treatment Soft Tissue Mobilization upper trapezius release Body Location right upper trapezius Mobilization Type Myofascial Release Body Position Hooklying suboccipital release Mobilization Type Sustained Pressure Intensity/Depth Moderate Body Position Hooklying Joint Mobilizations scapular mobilization Joint Bilat Direction into dep and add grade II, sidelying PT-OP-T Assessment and Plan Start: 09/18/24 12:22 Freq: Status: Active Protocol: Document 09/25/24 11:30 [facility] (Rec: 09/27/24 16:37 [facility] [id number]) Physical Therapy Assessment Goals 3 Impairment muscle guarding and spams of the right>left upper trapezius, SCM, and scalenes B [employer] Representative Goal (LTG) Hilda presents with decreased muscle guarding and spasm of the upper trapezius, SCM, and scalene musculature LTG Duration 8 weeks 2 Impairment Pain and limited Cervical ROM Short Term Goal (STG Hilda is educated on a HEP for cervical ROM and ) mobility STG Duration 4 weeks [facility]pc Goal (LTG) Improved cervical ROM and Hilda is better able to turn her head while driving LTG Duration 12 weeks 1 Impairment cervical spine pain rated 6-9 out of 10 that limits Hilda's ability to drive, sew, and quilt [facility]pc Goal (LTG) Hilda reports a overall reduction in cervical pain and is able to return to her activities of driving, sewing, and quilting LTG Duration 8 weeks+ Assessment Summary Assessment Pt continues to c/o pain and headaches. I did a trial of reach and pull today to start working on thoracic rotation. Stefany needed manual assist with this as it was too hard for her to hold up her arm. I then gave her a modified sidelying thoracic rotation without the reach and pull and she tolerated this better. I also worked on sidelying scapular mobs and she tolerated this well Physical Therapy Plan Frequency and Duration Frequency of 2x/Week Treatment Duration of 8 treatment (weeks) Plan of Care Start 09/18/24 Date Plan of Care End 11/13/24 Date Therapeutic Interventions Therapeutic Home Exercise Program,Manual Therapy,Neuromuscular Re- Interventions education,Patient/Caregiver Education,Self-Care/Home Management,Soft Tissue Mobilization,Therapeutic Exercises Next Visit Focus/Plan Next Note Type Treatment Note Next Visit Plan add in diaphragmatic breathing and continue with manual therapy techniques and gentle ROM exercises
--- NOTE | 2024-09-27 16:54 | PT.OTN ---
Current Diagnoses Other spondylosis with myelopathy, cervical region (09/27/24) Physical Therapy Treatment Note PT-OP-A Visit Information Start: 09/18/24 12:22 Freq: Status: Active Protocol: Document 09/27/24 13:45 [facility] (Rec: 09/27/24 16:54 [facility] [id number]) Out-Patient Physical Therapy Visit Information Visit Information Visit Type Treatment Note Visit Start Time 13:45 Visit Stop Time 14:30 Visit Number 4 Number of FOOT AND ANKLE SURGEON Visits 0 PT-OP-B Current Condition Start: 09/18/24 12:22 Freq: Status: Active Protocol: Document 09/18/24 13:00 [facility] (Rec: 09/18/24 13:24 [facility] [id number]) Current Condition History of Current Condition Onset Date Fall of 2023 Current Complaints neck pain that limits driving, sewing, and quilting History of Current 79 year old female with chief complaints of neck pain Condition that is worse on the right side that worsened after a fall at her daughter's house. Hilda reports last fall 2023 she opened the door to her daughters house and her two dogs came running at her and grabbed on to her and she did a face plant onto the tile floor. She broke her teeth and hit her jaw. Pain has gotten worse since that time Pain starts on the right side of her neck and goes up to her jaw and cranium. she reports feeling like a bobble head. She feels like she has clicking and her neck catches when she tries to look over her shoulder. She has a history of cervical laminectomy in 1996. When she driving she is having to turn her body and it is hard to turn her head. She experiences shooting pain into her shoulder . She likes to sew and quilt and looking down is painful and difficult for her to do. Hilda likes to make quilts and her left wrist has been very sore and painful and she is limited with her ability to quilt. She has been taking 2 alieve every 12 hours.79 year Prior Treatments and Past medical history includes scoliosis, cervical Tests laminectomy in 1996, 9 spinal surgeries including 2 fusions since 1996 Treatment Goals Patient/Caregiver treatment goals include being able to drive with Goals decreased pain and being able to quilt and sew without increased pain Prior Functional Status Baseline Function- Independent ADL's Baseline Function- Independent Mobility Current Functional Impairments (Reported) Functional pt is very limited with ADL's and is currently living Limitations- ADL's with her daughter for assistance Functional Pt is limited with her hobbies of quilting and sewing Limitations- due to increased neck pain Recreation/Hobbies Functional pt is able to drive short distances but is limited with Limitations- Other driving due to pain with turning her neck PT-OP-C Subjective Start: 09/18/24 12:22 Freq: Status: Active Protocol: Document 09/27/24 13:45 [facility] (Rec: 09/27/24 16:54 [facility] [id number]) OP-PT Subjective Patient Comments Patient Comments Stefany reports she had massage therapy today prior to this appt. She is feeling that her head ache pain is not as intense PT-OP-F Manual Assessment Start: 09/18/24 12:22 Freq: Status: Active Protocol: Document 09/18/24 13:00 [facility] (Rec: 09/18/24 17:45 [facility] [id number]) Manual Assessments Soft Tissue Assessment Soft Tissue Mobility tightness and guarding in the SCM musculature B R>L Assessment tightness and guarding of the suboccipital musculature right upper trapezius elevated with guarding and tightness Joint Mobility Assessment Joint Mobility pt is restricted in all ROM of the cervical spine and Assessment she presents with severe scoliosis with curve to the right PT-OP-J Posture/Palpation/Skin Start: 09/18/24 12:22 Freq: Status: Active Protocol: Document 09/18/24 13:00 [facility] (Rec: 09/18/24 17:45 [facility] [id number]) Posture Evaluation Position Sitting Evaluation View Posterior Head/C-Spine Posture Flexed T-Spine Posture Fixed Scoliosis on (R) Shoulder Posture (L) Rounded,(R) Rounded,(R) Elevated Baljeet Postural Classification System Baljeet Postural Anterior/Posterior Classifications Palpation Assessment Location suboccipital musculature Palpation Location bilateral suboccipiral musculatore Palpation Findings Soft Tissue Tightness,Spasm,Muscle Guarding PT-OP-K Range of Motion Start: 09/18/24 12:22 Freq: Status: Active Protocol: Document 09/18/24 13:25 [facility] (Rec: 09/18/24 13:29 [facility] [id number]) Cervical Spine Range of Motion Cervical Spine Active Testing Position Supine Flexion 30 Extension 5 Rotation Left 15 Rotation Right 10 Lateral Flexion Left 10 Lateral Flexion 10 Right ROM Limitations Soft Tissue Tightness Comments pt sits with head tipped to the left, right rotation and Sidebending increases pain pt likes cervical flexion, pain with extension PT-OP-Q Treatments Start: 09/18/24 12:22 Freq: Status: Active Protocol: Document 09/27/24 13:45 [facility] (Rec: 09/27/24 16:54 [facility] [id number]) Therapeutic Exercises Supine Exercises diaphragmatic breathing Reps/Minutes x 4 min Comments this is very difficult for Stefany to do as she uses accessory neck muscles hands behind head pec stretc Reps/Minutes x 10 reps Comments on the occipital float, pt was able to tolerate this today CS rotation AROM Supine Exercise Name on occipital float, positioned in chest outsoles channel opener Side bilateral Reps/Minutes 3 min Comments verbal cues to perform in pain free range seated shoulder circles backwards Reps/Minutes x 10 reps 2 times per day supine gentle chin tuck Reps/Minutes x 10 reps, on occipital float Sidelying Exercises sidelying reach and pull with gentle thoracic rotation Reps/Minutes 10 reps each side with manual assistance Sitting Exercises UT stretch Side bilateral Reps/Minutes 30 sec X 2 each side Comments VC to hold chair, avoid rotation, and to perform to stretch avoiding pain Manual Therapy Treatment Consent Patient gave verbal Yes consent for manual treatment Joint Mobilizations scapular mobilization Joint Bilat Direction into dep and add grade II, sidelying Comments worked on reach and pull after scapular mobilizations PT-OP-T Assessment and Plan Start: 09/18/24 12:22 Freq: Status: Active Protocol: Document 09/27/24 13:45 [facility] (Rec: 09/27/24 16:54 [facility] [id number]) Physical Therapy Assessment Goals 3 Impairment muscle guarding and spams of the right>left upper trapezius, SCM, and scalenes B [employer] Lac[employer] Mixer Goal (LTG) Hilda presents with decreased muscle guarding and spasm of the upper trapezius, SCM, and scalene musculature LTG Duration 8 weeks 2 Impairment Pain and limited Cervical ROM Short Term Goal (STG Hilda is educated on a HEP for cervical ROM and ) mobility STG Duration 4 weeks Shelter Goal (LTG) Improved cervical ROM and Hilda is better able to turn her head while driving LTG Duration 12 weeks 1 Impairment cervical spine pain rated 6-9 out of 10 that limits Hilda's ability to drive, sew, and quilt Shelter Goal (LTG) Hilda reports a overall reduction in cervical pain and is able to return to her activities of driving, sewing, and quilting LTG Duration 8 weeks+ Assessment Summary Assessment Stefany did a little better today, she had a massage prior to PT so we focused on scapular mobilizations and her ROM ex. She does well on the occipital float and her ROM was improved both directions today. Diaphragmatic breathing is very difficult for her to do as she is so tight and guarded in her neck. Physical Therapy Plan Frequency and Duration Frequency of 2x/Week Treatment Duration of 8 treatment (weeks) Plan of Care Start 09/18/24 Date Plan of Care End 11/13/24 Date Therapeutic Interventions Therapeutic Home Exercise Program,Manual Therapy,Neuromuscular Re- Interventions education,Patient/Caregiver Education,Self-Care/Home Management,Soft Tissue Mobilization,Therapeutic Exercises Next Visit Focus/Plan Next Note Type Treatment Note Next Visit Plan continue with scapular mobilizations, thoracic mobility , cervical ROM, diaphragmatic breathing, manual therapy techniques
--- NOTE | 2024-10-09 17:10 | PT.OTN ---
Current Diagnoses Other spondylosis with myelopathy, cervical region (10/09/24) Physical Therapy Treatment Note PT-OP-A Visit Information Start: 09/18/24 12:22 Freq: Status: Active Protocol: Document 10/09/24 15:15 AB (Rec: 10/09/24 17:09 AB [id number]) Out-Patient Physical Therapy Visit Information Visit Information Visit Type Treatment Note Visit Note Access Code: [email or web address] Visit Start Time 16:17 Visit Stop Time 17:03 Visit Number 5 PN due 10/18/2024 Number of DANDY OPERATOR Visits 1 Evaluation Information Evaluation Date 09/18/24 PT-OP-B Current Condition Start: 09/18/24 12:22 Freq: Status: Active Protocol: Document 09/18/24 13:00 AMH (Rec: 09/18/24 13:24 AMH [id number]) Current Condition History of Current Condition Onset Date fall Current Complaints neck pain that limits driving, sewing, and quilting History of Current 79 year old female with chief complaints of neck pain Condition that is worse on the right side that worsened after a fall at her daughter's house. Hilda reports last fall 2023 she opened the door to her daughters house and her two dogs came running at her and grabbed on to her and she did a face plant onto the tile floor. She broke her teeth and hit her jaw. Pain has gotten worse since that time Pain starts on the right side of her neck and goes up to her jaw and cranium. she reports feeling like a bobble head. She feels like she has clicking and her neck catches when she tries to look over her shoulder. She has a history of cervical laminectomy in 1996. When she driving she is having to turn her body and it is hard to turn her head. She experiences shooting pain into her shoulder . She likes to sew and quilt and looking down is painful and difficult for her to do. Hilda likes to make quilts and her left wrist has been very sore and painful and she is limited with her ability to quilt. She has been taking 2 alieve every 12 hours.79 year Prior Treatments and Past medical history includes scoliosis, cervical Tests laminectomy in 1996, 9 spinal surgeries including 2 fusions since 1996 Treatment Goals Patient/Caregiver treatment goals include being able to drive with Goals decreased pain and being able to quilt and sew without increased pain Prior Functional Status Baseline Function- Independent ADL's Baseline Function- Independent Mobility Current Functional Impairments (Reported) Functional pt is very limited with ADL's and is currently living Limitations- ADL's with her daughter for assistance Functional Pt is limited with her hobbies of quilting and sewing Limitations- due to increased neck pain Recreation/Hobbies Functional pt is able to drive short distances but is limited with Limitations- Other driving due to pain with turning her neck PT-OP-C Subjective Start: 09/18/24 12:22 Freq: Status: Active Protocol: Document 10/09/24 15:15 AB (Rec: 10/09/24 17:09 AB [id number]) OP-PT Subjective Patient Comments Patient Comments Patient reports she was in pain X 4 days post last session, back and ribs>neck. Patient reports she didn't do any of the new exercises. Hilda rates back pain 3-4/10, wrist 6/10, neck no pain seated at rest. PT-OP-F Manual Assessment Start: 09/18/24 12:22 Freq: Status: Active Protocol: Document 09/18/24 13:00 AMH (Rec: 09/18/24 17:45 AMH [id number]) Manual Assessments Soft Tissue Assessment Soft Tissue Mobility tightness and guarding in the SCM musculature B R>L Assessment tightness and guarding of the suboccipital musculature right upper trapezius elevated with guarding and tightness Joint Mobility Assessment Joint Mobility pt is restricted in all ROM of the cervical spine and Assessment she presents with severe scoliosis with curve to the right PT-OP-J Posture/Palpation/Skin Start: 09/18/24 12:22 Freq: Status: Active Protocol: Document 09/18/24 13:00 AMH (Rec: 09/18/24 17:45 AMH [id number]) Posture Evaluation Position Sitting Evaluation View Posterior Head/C-Spine Posture Flexed T-Spine Posture Fixed Scoliosis on (R) Shoulder Posture (L) Rounded,(R) Rounded,(R) Elevated Baljeet Postural Classification System Baljeet Postural Anterior/Posterior Classifications Palpation Assessment Location suboccipital musculature Palpation Location bilateral suboccipiral musculatore Palpation Findings Soft Tissue Tightness,Spasm,Muscle Guarding PT-OP-K Range of Motion Start: 09/18/24 12:22 Freq: Status: Active Protocol: Document 09/18/24 13:25 AMH (Rec: 09/18/24 13:29 AMH [id number]) Cervical Spine Range of Motion Cervical Spine Active Testing Position Supine Flexion 30 Extension 5 Rotation Left 15 Rotation Right 10 Lateral Flexion Left 10 Lateral Flexion 10 Right ROM Limitations Soft Tissue Tightness Comments pt sits with head tipped to the left, right rotation and Sidebending increases pain pt likes cervical flexion, pain with extension PT-OP-Q Treatments Start: 09/18/24 12:22 Freq: Status: Active Protocol: Document 10/09/24 15:15 AB (Rec: 10/09/24 17:09 AB [id number]) Therapeutic Exercises Supine Exercises diaphragmatic breathing Supine Exercise Name Seated with pillows on lap, VC to expand core/abdominal area into pillows Reps/Minutes x 1-2 min CS rotation AROM Supine Exercise Name on occipital float, positioned in chest p 3 armament/ordnance ima technician Side bilateral Reps/Minutes 3 min Comments verbal cues to perform in pain free range Sitting Exercises seated trunk rotation Sitting Exercise AROM Name Side bilateral Reps/Minutes X 10 Comments verbal cues Manual Therapy Treatment Consent Patient gave verbal Yes consent for manual treatment Soft Tissue Mobilization thoracic paraspinals Body Location bilateral Mobilization Type Cross-Friction,Sustained Pressure Intensity/Depth Moderate Body Position Sidelying STM for the upper traps bilaterally Body Location Also levator scap, scalenes at clavicle and CS paraspinals. Intensity/Depth Moderate Body Position Sitting Joint Mobilizations scapular mobilization Joint Bilat Direction into dep and add grade III, sidelying PT-OP-T Assessment and Plan Start: 09/18/24 12:22 Freq: Status: Active Protocol: Document 10/09/24 15:15 AB (Rec: 10/09/24 17:09 AB [id number]) Physical Therapy Assessment Goals 3 Impairment muscle guarding and spams of the right>left upper trapezius, SCM, and scalenes B Senior Net Developer Goal (LTG) Hilda presents with decreased muscle guarding and spasm of the upper trapezius, SCM, and scalene musculature LTG Duration 8 weeks 2 Impairment Pain and limited Cervical ROM Short Term Goal (STG Hilda is educated on a HEP for cervical ROM and ) mobility STG Duration 4 weeks [facility] Goal (LTG) Improved cervical ROM and Hilda is better able to turn her head while driving LTG Duration 12 weeks 1 Impairment cervical spine pain rated 6-9 out of 10 that limits Hilda's ability to drive, sew, and quilt [facility] Goal (LTG) Hilda reports a overall reduction in cervical pain and is able to return to her activities of driving, sewing, and quilting LTG Duration 8 weeks+ Assessment Summary Assessment End of session Stefany rates neck pain 2/10, back pain 1/ 10 end of session. Patient into session with reports of inc pain post previous session, avoided thoracic rotation side lying this session, trial of seated performed today. Physical Therapy Plan Frequency and Duration Frequency of 2x/Week Treatment Duration of 8 treatment (weeks) Plan of Care Start 09/18/24 Date Plan of Care End 11/13/24 Date Next Visit Focus/Plan Next Note Type Treatment Note Next Visit Plan continue with scapular mobilizations, thoracic mobility , cervical ROM, diaphragmatic breathing, manual therapy techniques
--- NOTE | 2024-10-12 16:09 | PT.OTN ---
Current Diagnoses Other spondylosis with myelopathy, cervical region (10/12/24) Physical Therapy Treatment Note PT-OP-A Visit Information Start: 09/18/24 12:22 Freq: Status: Active Protocol: Document 10/12/24 15:15 AB (Rec: 10/12/24 16:09 AB [id number]) Out-Patient Physical Therapy Visit Information Visit Information Visit Type Treatment Note Visit Note Access Code: [email or web address] Visit Start Time 15:20 Visit Stop Time 16:04 Visit Number 6 PN due 10/18/2024 Number of CIRCULATION ASSISTANT Visits 2 Evaluation Information Evaluation Date 09/18/24 PT-OP-B Current Condition Start: 09/18/24 12:22 Freq: Status: Active Protocol: Document 09/18/24 13:00 AMH (Rec: 09/18/24 13:24 AMH [id number]) Current Condition History of Current Condition Onset Date fall Current Complaints neck pain that limits driving, sewing, and quilting History of Current 79 year old female with chief complaints of neck pain Condition that is worse on the right side that worsened after a fall at her daughter's house. Hilda reports last fall 2023 she opened the door to her daughters house and her two dogs came running at her and grabbed on to her and she did a face plant onto the tile floor. She broke her teeth and hit her jaw. Pain has gotten worse since that time Pain starts on the right side of her neck and goes up to her jaw and cranium. she reports feeling like a bobble head. She feels like she has clicking and her neck catches when she tries to look over her shoulder. She has a history of cervical laminectomy in 1996. When she driving she is having to turn her body and it is hard to turn her head. She experiences shooting pain into her shoulder . She likes to sew and quilt and looking down is painful and difficult for her to do. Hilda likes to make quilts and her left wrist has been very sore and painful and she is limited with her ability to quilt. She has been taking 2 alieve every 12 hours.79 year Prior Treatments and Past medical history includes scoliosis, cervical Tests laminectomy in 1996, 9 spinal surgeries including 2 fusions since 1996 Treatment Goals Patient/Caregiver treatment goals include being able to drive with Goals decreased pain and being able to quilt and sew without increased pain Prior Functional Status Baseline Function- Independent ADL's Baseline Function- Independent Mobility Current Functional Impairments (Reported) Functional pt is very limited with ADL's and is currently living Limitations- ADL's with her daughter for assistance Functional Pt is limited with her hobbies of quilting and sewing Limitations- due to increased neck pain Recreation/Hobbies Functional pt is able to drive short distances but is limited with Limitations- Other driving due to pain with turning her neck PT-OP-C Subjective Start: 09/18/24 12:22 Freq: Status: Active Protocol: Document 10/12/24 15:15 AB (Rec: 10/12/24 16:09 AB [id number]) OP-PT Subjective Patient Comments Patient Comments Patient reports she can only sit 5 minutes without increased pain up into cranial area. Patient rates pain 2/10 R side of head, neck pain L 2/10 with CS rotation right to top of head, with CS rotation L reports pain up L side of head. PT-OP-F Manual Assessment Start: 09/18/24 12:22 Freq: Status: Active Protocol: Document 09/18/24 13:00 AMH (Rec: 09/18/24 17:45 AMH [id number]) Manual Assessments Soft Tissue Assessment Soft Tissue Mobility tightness and guarding in the SCM musculature B R>L Assessment tightness and guarding of the suboccipital musculature right upper trapezius elevated with guarding and tightness Joint Mobility Assessment Joint Mobility pt is restricted in all ROM of the cervical spine and Assessment she presents with severe scoliosis with curve to the right PT-OP-J Posture/Palpation/Skin Start: 09/18/24 12:22 Freq: Status: Active Protocol: Document 09/18/24 13:00 AMH (Rec: 09/18/24 17:45 AMH [id number]) Posture Evaluation Position Sitting Evaluation View Posterior Head/C-Spine Posture Flexed T-Spine Posture Fixed Scoliosis on (R) Shoulder Posture (L) Rounded,(R) Rounded,(R) Elevated Baljeet Postural Classification System Baljeet Postural Anterior/Posterior Classifications Palpation Assessment Location suboccipital musculature Palpation Location bilateral suboccipiral musculatore Palpation Findings Soft Tissue Tightness,Spasm,Muscle Guarding PT-OP-K Range of Motion Start: 09/18/24 12:22 Freq: Status: Active Protocol: Document 09/18/24 13:25 AMH (Rec: 09/18/24 13:29 AMH [id number]) Cervical Spine Range of Motion Cervical Spine Active Testing Position Supine Flexion 30 Extension 5 Rotation Left 15 Rotation Right 10 Lateral Flexion Left 10 Lateral Flexion 10 Right ROM Limitations Soft Tissue Tightness Comments pt sits with head tipped to the left, right rotation and Sidebending increases pain pt likes cervical flexion, pain with extension PT-OP-Q Treatments Start: 09/18/24 12:22 Freq: Status: Active Protocol: Document 10/12/24 15:15 AB (Rec: 10/12/24 16:09 AB [id number]) Therapeutic Exercises Supine Exercises diaphragmatic breathing Supine Exercise Name Seated with pillows on lap, VC to expand core/abdominal area into pillows Reps/Minutes x 1-2 min CS rotation AROM Supine Exercise Name on occipital float, positioned in chest medical services assistant Side bilateral Reps/Minutes 3 min Comments verbal cues to perform in pain free range Sitting Exercises seated trunk rotation Sitting Exercise AROM Name Side bilateral Reps/Minutes X 10 Comments verbal cues Standing Exercises single arm row Side bilateral Resistance level one band Reps/Minutes X 15 Comments verbal and visual cues CS rotation in counter planks Side bilateral Reps/Minutes X 10 each side Comments verbal cues and visual cues Manual Therapy Treatment Consent Patient gave verbal Yes consent for manual treatment Soft Tissue Mobilization thoracic paraspinals Body Location bilateral Mobilization Type Cross-Friction,Sustained Pressure Intensity/Depth Moderate Body Position Sidelying STM for the upper traps bilaterally Body Location Also levator scap, scalenes at clavicle and CS paraspinals. Intensity/Depth Moderate Body Position Sitting Comments occipitals STM at origin in hooklying Manual Techniques occipital release Reps/Duration contract relax with eyes moving cranially. PT-OP-T Assessment and Plan Start: 09/18/24 12:22 Freq: Status: Active Protocol: Document 10/12/24 15:15 AB (Rec: 10/12/24 16:09 AB [id number]) Physical Therapy Assessment Goals 3 Impairment muscle guarding and spams of the right>left upper trapezius, SCM, and scalenes B Bereavement Coordinator Goal (LTG) Hilda presents with decreased muscle guarding and spasm of the upper trapezius, SCM, and scalene musculature LTG Duration 8 weeks 2 Impairment Pain and limited Cervical ROM Short Term Goal (STG Hilda is educated on a HEP for cervical ROM and ) mobility STG Duration 4 weeks Bereavement Coordinator Goal (LTG) Improved cervical ROM and Hilda is better able to turn her head while driving LTG Duration 12 weeks 1 Impairment cervical spine pain rated 6-9 out of 10 that limits Hilda's ability to drive, sew, and quilt Shelter Goal (LTG) Hilda reports a overall reduction in cervical pain and is able to return to her activities of driving, sewing, and quilting LTG Duration 8 weeks+ Assessment Summary Assessment Stefany reports pain is the same, but does feel looser. Patient ed trial of ice pack towel or pillowcase between skin and ice pack at home post session upper CS area. Physical Therapy Plan Frequency and Duration Frequency of 2x/Week Treatment Duration of 8 treatment (weeks) Plan of Care Start 09/18/24 Date Plan of Care End 11/13/24 Date Next Visit Focus/Plan Next Note Type Treatment Note Next Visit Plan continue with scapular mobilizations, thoracic mobility , cervical ROM, diaphragmatic breathing, manual therapy techniques, possibly single arm row to HEP
--- NOTE | 2024-10-18 13:41 | PT.OTN ---
Current Diagnoses Other spondylosis with myelopathy, cervical region (10/18/24) Physical Therapy Treatment Note PT-OP-A Visit Information Start: 09/18/24 12:22 Freq: Status: Active Protocol: Document 10/18/24 11:35 [facility] (Rec: 10/18/24 11:42 [facility] [id number]) Out-Patient Physical Therapy Visit Information Visit Information Visit Type Progress Note Visit Start Time 11:35 Visit Stop Time 12:15 Visit Number 7 Number of PAPER REEL OPERATOR Visits 0 Evaluation Information Evaluation Date 09/18/24 PT-OP-B Current Condition Start: 09/18/24 12:22 Freq: Status: Active Protocol: Document 09/18/24 13:00 [facility] (Rec: 09/18/24 13:24 [facility] [id number]) Current Condition History of Current Condition Onset Date fall Current Complaints neck pain that limits driving, sewing, and quilting History of Current 79 year old female with chief complaints of neck pain Condition that is worse on the right side that worsened after a fall at her daughter's house. Hilda reports last fall 2023 she opened the door to her daughters house and her two dogs came running at her and grabbed on to her and she did a face plant onto the tile floor. She broke her teeth and hit her jaw. Pain has gotten worse since that time Pain starts on the right side of her neck and goes up to her jaw and cranium. she reports feeling like a bobble head. She feels like she has clicking and her neck catches when she tries to look over her shoulder. She has a history of cervical laminectomy in 1996. When she driving she is having to turn her body and it is hard to turn her head. She experiences shooting pain into her shoulder . She likes to sew and quilt and looking down is painful and difficult for her to do. Hilda likes to make quilts and her left wrist has been very sore and painful and she is limited with her ability to quilt. She has been taking 2 alieve every 12 hours.79 year Prior Treatments and Past medical history includes scoliosis, cervical Tests laminectomy in 1996, 9 spinal surgeries including 2 fusions since 1996 Treatment Goals Patient/Caregiver treatment goals include being able to drive with Goals decreased pain and being able to quilt and sew without increased pain Prior Functional Status Baseline Function- Independent ADL's Baseline Function- Independent Mobility Current Functional Impairments (Reported) Functional pt is very limited with ADL's and is currently living Limitations- ADL's with her daughter for assistance Functional Pt is limited with her hobbies of quilting and sewing Limitations- due to increased neck pain Recreation/Hobbies Functional pt is able to drive short distances but is limited with Limitations- Other driving due to pain with turning her neck PT-OP-C Subjective Start: 09/18/24 12:22 Freq: Status: Active Protocol: Document 10/18/24 11:35 [facility] (Rec: 10/18/24 11:42 [facility] [id number]) OP-PT Subjective Patient Comments Patient Comments pt still notes she is still having pain that goes up the back of her neck into her ear and jaw and into her head but she notes it has decreased in intensity. She states she is able to work on her quilting now for 30 min at a time. She does feel PT is helping increase her neck movement and less pain going up and around her head than it was initially PT-OP-F Manual Assessment Start: 09/18/24 12:22 Freq: Status: Active Protocol: Document 09/18/24 13:00 [facility] (Rec: 09/18/24 17:45 [facility] [id number]) Manual Assessments Soft Tissue Assessment Soft Tissue Mobility tightness and guarding in the SCM musculature B R>L Assessment tightness and guarding of the suboccipital musculature right upper trapezius elevated with guarding and tightness Joint Mobility Assessment Joint Mobility pt is restricted in all ROM of the cervical spine and Assessment she presents with severe scoliosis with curve to the right PT-OP-J Posture/Palpation/Skin Start: 09/18/24 12:22 Freq: Status: Active Protocol: Document 09/18/24 13:00 [facility] (Rec: 09/18/24 17:45 [facility] [id number]) Posture Evaluation Position Sitting Evaluation View Posterior Head/C-Spine Posture Flexed T-Spine Posture Fixed Scoliosis on (R) Shoulder Posture (L) Rounded,(R) Rounded,(R) Elevated Baljeet Postural Classification System Baljeet Postural Anterior/Posterior Classifications Palpation Assessment Location suboccipital musculature Palpation Location bilateral suboccipiral musculatore Palpation Findings Soft Tissue Tightness,Spasm,Muscle Guarding PT-OP-K Range of Motion Start: 09/18/24 12:22 Freq: Status: Active Protocol: Document 09/18/24 13:25 [facility] (Rec: 09/18/24 13:29 [facility] [id number]) Cervical Spine Range of Motion Cervical Spine Active Testing Position Supine Flexion 30 Extension 5 Rotation Left 15 Rotation Right 10 Lateral Flexion Left 10 Lateral Flexion 10 Right ROM Limitations Soft Tissue Tightness Comments pt sits with head tipped to the left, right rotation and Sidebending increases pain pt likes cervical flexion, pain with extension PT-OP-Q Treatments Start: 09/18/24 12:22 Freq: Status: Active Protocol: Document 10/18/24 11:35 [facility] (Rec: 10/18/24 12:14 [facility] [id number]) Therapeutic Exercises Supine Exercises diaphragmatic breathing Supine Exercise Name Seated with pillows on lap, VC to expand core/abdominal area into pillows Reps/Minutes x 1-2 min seated shoulder circles backwards Reps/Minutes x 10 reps 2 times per day supine gentle chin tuck Reps/Minutes x 10 reps, on occipital float Sitting Exercises seated trunk rotation Sitting Exercise AROM Name Side bilateral Reps/Minutes X 10 Comments verbal cues Manual Therapy Treatment Consent Patient gave verbal Yes consent for manual treatment Soft Tissue Mobilization STM for the upper traps bilaterally Body Location Also levator scap, scalenes at clavicle and CS paraspinals. Intensity/Depth Moderate Body Position Sitting Comments occipitals STM at origin in hooklying suboccipital release Mobilization Type Sustained Pressure Intensity/Depth Moderate Body Position Hooklying PT-OP-T Assessment and Plan Start: 09/18/24 12:22 Freq: Status: Active Protocol: Document 10/18/24 11:35 [facility] (Rec: 10/18/24 11:42 [facility] [id number]) Physical Therapy Assessment Goals 3 Impairment muscle guarding and spams of the right>left upper trapezius, SCM, and scalenes B Drop Hammer Mechanic Goal (LTG) Hilda presents with decreased muscle guarding and spasm of the upper trapezius, SCM, and scalene musculature 10/18/24 some progress LTG Duration 8 weeks 2 Impairment Pain and limited Cervical ROM Short Term Goal (STG Hilda is educated on a HEP for cervical ROM and ) mobility some progress STG Duration 4 weeks Fdc Goal (LTG) Improved cervical ROM and Hilda is better able to turn her head while driving pt notes it is becoming easier for cervical ROM now and to turn her head with driving LTG Duration 12 weeks 1 Impairment cervical spine pain rated 6-9 out of 10 that limits Hilda's ability to drive, sew, and quilt Fdc Goal (LTG) Hilda reports a overall reduction in cervical pain and is able to return to her activities of driving, sewing, and quilting As of 10/18/24 pt notes pain is less severe and she is able to sew for 30 min at at time LTG Duration 8 weeks+ Assessment Summary Assessment Stefany reports she still has pain but it is less severe, she is able to sew for 30 min at a time and her ROM is improving. She would benefit from continued PT Physical Therapy Plan Frequency and Duration Frequency of 2x/Week Treatment Duration of 8 treatment (weeks) Plan of Care Start 10/18/24 Date Plan of Care End 12/13/24 Date Therapeutic Interventions Therapeutic Home Exercise Program,Manual Therapy,Neuromuscular Re- Interventions education,Patient/Caregiver Education,Self-Care/Home Management,Soft Tissue Mobilization,Therapeutic Exercises Next Visit Focus/Plan Next Note Type Treatment Note Next Visit Plan continue with scapular mobilizations, thoracic mobility , cervical ROM, diaphragmatic breathing, manual therapy techniques, possibly single arm row to HEP PT-Therapy Code Fee Billing Start: 09/18/24 12:22 Freq: Status: Active Protocol: Document 10/18/24 11:35 [facility] (Rec: 10/18/24 11:42 [facility] [id number]) Physical Therapy Total Visit Minutes 40 PT Charge Codes - Fee KX Modifier Therapy Cap No Exclusion Modifier Therapeutic Exercise (55700) Minutes 15 PT Unit(s) per 15 1 min Manual Therapy (66371) Minutes 25 PT Unit(s) per 15 2 min PAPER REEL OPERATOR-Therapy Code Fee Billing Start: 09/20/24 07:27 Freq: Status: Active Protocol: Document 10/12/24 15:15 [facility] (Rec: 10/12/24 16:09 [facility] [id number]) Physical Therapy Total Visit Minutes 44 PAPER REEL OPERATOR Charge Codes - Fee KX Modifier Therapy Cap No Exclusion Modifier Therapeutic Exercise (07788) Minutes 10 PAPER REEL OPERATOR Unit(s) per 15 1 min Manual Therapy (05936) Minutes 30 PAPER REEL OPERATOR Unit(s) per 15 2 min
--- NOTE | 2024-10-18 13:42 | PT.OPPOC ---
Physical, Occupational & Speech Therapy At [facility] Current Diagnoses Other spondylosis with myelopathy, cervical region (10/18/24) Visit Care Team Role Provider Type Kate Moreno MD Family Provider Physician Primary Care Provider Specialty: Family Practice [facility] Address: [address] [place], [address] Fax: Email: [email or web address] Aguayo PA-C Attending Provider Physician Referring Provider Specialty: Medical Address: [address] [place] [address], [id number] Email: Plan Of Care PT-OP-B Current Condition Start: 09/18/24 12:22 Freq: Status: Active Protocol: Document 09/18/24 13:00 [facility] (Rec: 09/18/24 13:24 [facility] [id number]) Current Condition History of Current Condition Onset Date Fall of 2023 Current Complaints neck pain that limits driving, sewing, and quilting History of Current 79 year old female with chief complaints of neck pain Condition that is worse on the right side that worsened after a fall at her daughter's house. Hilda reports last fall 2023 she opened the door to her daughters house and her two dogs came running at her and grabbed on to her and she did a face plant onto the tile floor. She broke her teeth and hit her jaw. Pain has gotten worse since that time Pain starts on the right side of her neck and goes up to her jaw and cranium. she reports feeling like a bobble head. She feels like she has clicking and her neck catches when she tries to look over her shoulder. She has a history of cervical laminectomy in 1996. When she driving she is having to turn her body and it is hard to turn her head. She experiences shooting pain into her shoulder . She likes to sew and quilt and looking down is painful and difficult for her to do. Hilda likes to make quilts and her left wrist has been very sore and painful and she is limited with her ability to quilt. She has been taking 2 alieve every 12 hours.79 year Prior Treatments and Past medical history includes scoliosis, cervical Tests laminectomy in 1996, 9 spinal surgeries including 2 fusions since 1996 Treatment Goals Patient/Caregiver treatment goals include being able to drive with Goals decreased pain and being able to quilt and sew without increased pain Prior Functional Status Baseline Function- Independent ADL's Baseline Function- Independent Mobility Current Functional Impairments (Reported) Functional pt is very limited with ADL's and is currently living Limitations- ADL's with her daughter for assistance Functional Pt is limited with her hobbies of quilting and sewing Limitations- due to increased neck pain Recreation/Hobbies Functional pt is able to drive short distances but is limited with Limitations- Other driving due to pain with turning her neck PT-OP-T Assessment and Plan Start: 09/18/24 12:22 Freq: Status: Active Protocol: Document 10/18/24 11:35 [facility] (Rec: 10/18/24 11:42 [facility] [id number]) Physical Therapy Assessment Goals 3 Impairment muscle guarding and spams of the right>left upper trapezius, SCM, and scalenes B Assisted Goal (LTG) Hilda presents with decreased muscle guarding and spasm of the upper trapezius, SCM, and scalene musculature 10/18/24 some progress LTG Duration 8 weeks 2 Impairment Pain and limited Cervical ROM Short Term Goal (STG Hilda is educated on a HEP for cervical ROM and ) mobility some progress STG Duration 4 weeks Agricultural Education Instructor Goal (LTG) Improved cervical ROM and Hilda is better able to turn her head while driving pt notes it is becoming easier for cervical ROM now and to turn her head with driving LTG Duration 12 weeks 1 Impairment cervical spine pain rated 6-9 out of 10 that limits Hilda's ability to drive, sew, and quilt Agricultural Education Instructor Goal (LTG) Hilda reports a overall reduction in cervical pain and is able to return to her activities of driving, sewing, and quilting As of 10/18/24 pt notes pain is less severe and she is able to sew for 30 min at at time LTG Duration 8 weeks+ Assessment Summary Assessment Stefany reports she still has pain but it is less severe, she is able to sew for 30 min at a time and her ROM is improving. She would benefit from continued PT Physical Therapy Plan Frequency and Duration Frequency of 2x/Week Treatment Duration of 8 treatment (weeks) Plan of Care Start 10/18/24 Date Plan of Care End 12/13/24 Date Therapeutic Interventions Therapeutic Home Exercise Program,Manual Therapy,Neuromuscular Re- Interventions education,Patient/Caregiver Education,Self-Care/Home Management,Soft Tissue Mobilization,Therapeutic Exercises Next Visit Focus/Plan Next Note Type Treatment Note Next Visit Plan continue with scapular mobilizations, thoracic mobility , cervical ROM, diaphragmatic breathing, manual therapy techniques, possibly single arm row to HEP Plan of Care Dates Plan of Care Start Date 10/18/24 Plan of Care End Date 12/13/24 Electronically Signed by: Palmira Chong, PT 10/18/24 [id number] If you are in agreement with this Plan of Care, please return a signed and dated copy. I have reviewed this Plan of Care and certify that the skilled therapy services above are required to meet the patient?s needs. Physician Signature Date Printed Name and Credentials Clinical Instructor Signature Printed Name and Credentials
--- NOTE | 2024-10-23 14:55 | PT.OTN ---
Current Diagnoses Other spondylosis with myelopathy, cervical region (10/23/24) Physical Therapy Treatment Note PT-OP-A Visit Information Start: 09/18/24 12:22 Freq: Status: Active Protocol: Document 10/23/24 13:02 [facility] (Rec: 10/23/24 13:25 [facility] [id number]) Out-Patient Physical Therapy Visit Information Visit Information Visit Type Treatment Note Visit Note pt stayed for 10 min of heat following appt Visit Start Time 13:05 Visit Stop Time 13:55 Visit Number 8 Number of CUSTOMER MANAGER Visits 0 Evaluation Information Evaluation Date 09/18/24 PT-OP-B Current Condition Start: 09/18/24 12:22 Freq: Status: Active Protocol: Document 09/18/24 13:00 [facility] (Rec: 09/18/24 13:24 [facility] [id number]) Current Condition History of Current Condition Onset Date Fall of 2023 Current Complaints neck pain that limits driving, sewing, and quilting History of Current 79 year old female with chief complaints of neck pain Condition that is worse on the right side that worsened after a fall at her daughter's house. Hilda reports last fall 2023 she opened the door to her daughters house and her two dogs came running at her and grabbed on to her and she did a face plant onto the tile floor. She broke her teeth and hit her jaw. Pain has gotten worse since that time Pain starts on the right side of her neck and goes up to her jaw and cranium. she reports feeling like a bobble head. She feels like she has clicking and her neck catches when she tries to look over her shoulder. She has a history of cervical laminectomy in 1996. When she driving she is having to turn her body and it is hard to turn her head. She experiences shooting pain into her shoulder . She likes to sew and quilt and looking down is painful and difficult for her to do. Hilda likes to make quilts and her left wrist has been very sore and painful and she is limited with her ability to quilt. She has been taking 2 alieve every 12 hours.79 year Prior Treatments and Past medical history includes scoliosis, cervical Tests laminectomy in 1996, 9 spinal surgeries including 2 fusions since 1996 Treatment Goals Patient/Caregiver treatment goals include being able to drive with Goals decreased pain and being able to quilt and sew without increased pain Prior Functional Status Baseline Function- Independent ADL's Baseline Function- Independent Mobility Current Functional Impairments (Reported) Functional pt is very limited with ADL's and is currently living Limitations- ADL's with her daughter for assistance Functional Pt is limited with her hobbies of quilting and sewing Limitations- due to increased neck pain Recreation/Hobbies Functional pt is able to drive short distances but is limited with Limitations- Other driving due to pain with turning her neck PT-OP-C Subjective Start: 09/18/24 12:22 Freq: Status: Active Protocol: Document 10/23/24 13:02 [facility] (Rec: 10/23/24 13:25 [facility] [id number]) OP-PT Subjective Patient Comments Patient Comments pt notes she is doing okay and not as sore but reading is still difficult to sit and read a book and she reports she can sit and read x 10 min max She had to drive to a [employer] appt yesterday and reports her navigation system didn't work and by the time she made it to her appointment in [place] she was very stressed and her neck was really tight. PT-OP-F Manual Assessment Start: 09/18/24 12:22 Freq: Status: Active Protocol: Document 09/18/24 13:00 [facility] (Rec: 09/18/24 17:45 [facility] [id number]) Manual Assessments Soft Tissue Assessment Soft Tissue Mobility tightness and guarding in the SCM musculature B R>L Assessment tightness and guarding of the suboccipital musculature right upper trapezius elevated with guarding and tightness Joint Mobility Assessment Joint Mobility pt is restricted in all ROM of the cervical spine and Assessment she presents with severe scoliosis with curve to the right PT-OP-J Posture/Palpation/Skin Start: 09/18/24 12:22 Freq: Status: Active Protocol: Document 09/18/24 13:00 [facility] (Rec: 09/18/24 17:45 [facility] [id number]) Posture Evaluation Position Sitting Evaluation View Posterior Head/C-Spine Posture Flexed T-Spine Posture Fixed Scoliosis on (R) Shoulder Posture (L) Rounded,(R) Rounded,(R) Elevated Baljeet Postural Classification System Baljeet Postural Anterior/Posterior Classifications Palpation Assessment Location suboccipital musculature Palpation Location bilateral suboccipiral musculatore Palpation Findings Soft Tissue Tightness,Spasm,Muscle Guarding PT-OP-K Range of Motion Start: 09/18/24 12:22 Freq: Status: Active Protocol: Document 09/18/24 13:25 [facility] (Rec: 09/18/24 13:29 [facility] [id number]) Cervical Spine Range of Motion Cervical Spine Active Testing Position Supine Flexion 30 Extension 5 Rotation Left 15 Rotation Right 10 Lateral Flexion Left 10 Lateral Flexion 10 Right ROM Limitations Soft Tissue Tightness Comments pt sits with head tipped to the left, right rotation and Sidebending increases pain pt likes cervical flexion, pain with extension PT-OP-Q Treatments Start: 09/18/24 12:22 Freq: Status: Active Protocol: Document 10/23/24 13:02 [facility] (Rec: 10/23/24 13:25 [facility] [id number]) Therapeutic Exercises Supine Exercises diaphragmatic breathing Supine Exercise Name Seated with pillows on lap, VC to expand core/abdominal area into pillows Reps/Minutes x 1-2 min CS rotation AROM Supine Exercise Name on occipital float, positioned in chest operations and maintenance specialist Side bilateral Reps/Minutes 3 min Comments verbal cues to perform in pain free range supine gentle chin tuck Reps/Minutes x 10 reps, on occipital float Manual Therapy Treatment Consent Patient gave verbal Yes consent for manual treatment Soft Tissue Mobilization upper trapezius release Body Location right upper trapezius Mobilization Type Myofascial Release Body Position Hooklying STM for the upper traps bilaterally Body Location Also levator scap, scalenes at clavicle and CS paraspinals. Intensity/Depth Moderate Body Position Sitting Comments occipitals STM at origin in hooklying suboccipital release Mobilization Type Sustained Pressure Intensity/Depth Moderate Body Position Hooklying Manual Techniques occipital release Reps/Duration contract relax with eyes moving cranially. PT-OP-R Modalities Start: 10/23/24 14:51 Freq: Status: Active Protocol: Document 10/23/24 14:51 [facility] (Rec: 10/23/24 14:53 [facility] [id number]) Hot Pack/Cold Pack Treatment Hot Pack Location cervical spine Patient Position Hooklying Comments pt tolerated this really well and notes it helped to relax her neck PT-OP-T Assessment and Plan Start: 09/18/24 12:22 Freq: Status: Active Protocol: Document 10/23/24 14:53 [facility] (Rec: 10/23/24 14:55 [facility] [id number]) Physical Therapy Assessment Goals 3 Impairment muscle guarding and spams of the right>left upper trapezius, SCM, and scalenes B Blow Molding Machine Tender Goal (LTG) Hilda presents with decreased muscle guarding and spasm of the upper trapezius, SCM, and scalene musculature 10/18/24 some progress LTG Duration 8 weeks 2 Impairment Pain and limited Cervical ROM Short Term Goal (STG Hilda is educated on a HEP for cervical ROM and ) mobility some progress STG Duration 4 weeks Blow Molding Machine Tender Goal (LTG) Improved cervical ROM and Hilda is better able to turn her head while driving pt notes it is becoming easier for cervical ROM now and to turn her head with driving LTG Duration 12 weeks 1 Impairment cervical spine pain rated 6-9 out of 10 that limits Hilda's ability to drive, sew, and quilt Blow Molding Machine Tender Goal (LTG) Hilda reports a overall reduction in cervical pain and is able to return to her activities of driving, sewing, and quilting As of 10/18/24 pt notes pain is less severe and she is able to sew for 30 min at at time LTG Duration 8 weeks+ Assessment Summary Assessment Pain is slowly decreasing, reading is still difficult. I did do a trial of heat on her neck today after treatment and she felt this was helpful. Continue to encourage HEP for posture as pt is able to do Physical Therapy Plan Frequency and Duration Frequency of 2x/Week Treatment Duration of 8 treatment (weeks) Plan of Care Start 10/18/24 Date Plan of Care End 12/13/24 Date Therapeutic Interventions Therapeutic Home Exercise Program,Manual Therapy,Neuromuscular Re- Interventions education,Patient/Caregiver Education,Self-Care/Home Management,Soft Tissue Mobilization,Therapeutic Exercises Next Visit Focus/Plan Next Note Type Treatment Note Next Visit Plan review single arm row and continue with postural exercises as pt is able. Continue with manual therapy techniques and heat pack to end treatment
--- NOTE | 2024-10-25 16:39 | PT.OTN ---
Current Diagnoses Other spondylosis with myelopathy, cervical region (10/25/24) Physical Therapy Treatment Note PT-OP-A Visit Information Start: 09/18/24 12:22 Freq: Status: Active Protocol: Document 10/25/24 13:45 [facility] (Rec: 10/25/24 13:58 [facility] [id number]) Out-Patient Physical Therapy Visit Information Visit Information Visit Type Treatment Note Visit Start Time 13:45 Visit Stop Time 14:30 Visit Number 9 PT-OP-B Current Condition Start: 09/18/24 12:22 Freq: Status: Active Protocol: Document 09/18/24 13:00 [facility] (Rec: 09/18/24 13:24 [facility] [id number]) Current Condition History of Current Condition Onset Date Fall of 2023 Current Complaints neck pain that limits driving, sewing, and quilting History of Current 79 year old female with chief complaints of neck pain Condition that is worse on the right side that worsened after a fall at her daughter's house. Hilda reports last fall 2023 she opened the door to her daughters house and her two dogs came running at her and grabbed on to her and she did a face plant onto the tile floor. She broke her teeth and hit her jaw. Pain has gotten worse since that time Pain starts on the right side of her neck and goes up to her jaw and cranium. she reports feeling like a bobble head. She feels like she has clicking and her neck catches when she tries to look over her shoulder. She has a history of cervical laminectomy in 1996. When she driving she is having to turn her body and it is hard to turn her head. She experiences shooting pain into her shoulder . She likes to sew and quilt and looking down is painful and difficult for her to do. Hilda likes to make quilts and her left wrist has been very sore and painful and she is limited with her ability to quilt. She has been taking 2 alieve every 12 hours.79 year Prior Treatments and Past medical history includes scoliosis, cervical Tests laminectomy in 1996, 9 spinal surgeries including 2 fusions since 1996 Treatment Goals Patient/Caregiver treatment goals include being able to drive with Goals decreased pain and being able to quilt and sew without increased pain Prior Functional Status Baseline Function- Independent ADL's Baseline Function- Independent Mobility Current Functional Impairments (Reported) Functional pt is very limited with ADL's and is currently living Limitations- ADL's with her daughter for assistance Functional Pt is limited with her hobbies of quilting and sewing Limitations- due to increased neck pain Recreation/Hobbies Functional pt is able to drive short distances but is limited with Limitations- Other driving due to pain with turning her neck PT-OP-C Subjective Start: 09/18/24 12:22 Freq: Status: Active Protocol: Document 10/25/24 13:45 [facility] (Rec: 10/25/24 13:58 [facility] [id number]) OP-PT Subjective Patient Comments Patient Comments pt took a fall yesterday landing on her right side of her face and she presents with bruising around her right eye she said the sidewalk she was walking on was uneven and she caught her right toe on the uneven sidewalk and this is what caused her fall. She was outside of the massage therapist building when she fell and they helped her inside and iced her face. She has had more of the headaches and neck pain since this fall PT-OP-F Manual Assessment Start: 09/18/24 12:22 Freq: Status: Active Protocol: Document 09/18/24 13:00 [facility] (Rec: 09/18/24 17:45 [facility] [id number]) Manual Assessments Soft Tissue Assessment Soft Tissue Mobility tightness and guarding in the SCM musculature B R>L Assessment tightness and guarding of the suboccipital musculature right upper trapezius elevated with guarding and tightness Joint Mobility Assessment Joint Mobility pt is restricted in all ROM of the cervical spine and Assessment she presents with severe scoliosis with curve to the right PT-OP-J Posture/Palpation/Skin Start: 09/18/24 12:22 Freq: Status: Active Protocol: Document 09/18/24 13:00 [facility] (Rec: 09/18/24 17:45 [facility] [id number]) Posture Evaluation Position Sitting Evaluation View Posterior Head/C-Spine Posture Flexed T-Spine Posture Fixed Scoliosis on (R) Shoulder Posture (L) Rounded,(R) Rounded,(R) Elevated Baljeet Postural Classification System Baljeet Postural Anterior/Posterior Classifications Palpation Assessment Location suboccipital musculature Palpation Location bilateral suboccipiral musculatore Palpation Findings Soft Tissue Tightness,Spasm,Muscle Guarding PT-OP-K Range of Motion Start: 09/18/24 12:22 Freq: Status: Active Protocol: Document 09/18/24 13:25 [facility] (Rec: 09/18/24 13:29 [facility] [id number]) Cervical Spine Range of Motion Cervical Spine Active Testing Position Supine Flexion 30 Extension 5 Rotation Left 15 Rotation Right 10 Lateral Flexion Left 10 Lateral Flexion 10 Right ROM Limitations Soft Tissue Tightness Comments pt sits with head tipped to the left, right rotation and Sidebending increases pain pt likes cervical flexion, pain with extension PT-OP-Q Treatments Start: 09/18/24 12:22 Freq: Status: Active Protocol: Document 10/25/24 13:45 [facility] (Rec: 10/25/24 16:39 [facility] [id number]) Manual Therapy Treatment Soft Tissue Mobilization upper trapezius release Body Location right upper trapezius Mobilization Type Myofascial Release Body Position Hooklying STM for the upper traps bilaterally Body Location Also levator scap, scalenes at clavicle and CS paraspinals. Intensity/Depth Moderate Body Position Sitting Comments occipitals STM at origin in hooklying suboccipital release Mobilization Type Sustained Pressure Intensity/Depth Moderate Body Position Hooklying Manual Techniques manual pec minor stretching B Body Location pec minor stretch B Body Position Hooklying Comments Manual pressure though the anterior shoulder to provide a pec minor stretch each side PT-OP-R Modalities Start: 10/23/24 14:51 Freq: Status: Active Protocol: Document 10/23/24 14:51 [facility] (Rec: 10/23/24 14:53 [facility] [id number]) Hot Pack/Cold Pack Treatment Hot Pack Location cervical spine Patient Position Hooklying Comments pt tolerated this really well and notes it helped to relax her neck PT-OP-T Assessment and Plan Start: 09/18/24 12:22 Freq: Status: Active Protocol: Document 10/25/24 13:45 [facility] (Rec: 10/25/24 16:39 [facility] [id number]) Physical Therapy Assessment Goals 3 Impairment muscle guarding and spams of the right>left upper trapezius, SCM, and scalenes B Administrative Assistant Goal (LTG) Hilda presents with decreased muscle guarding and spasm of the upper trapezius, SCM, and scalene musculature 10/18/24 some progress LTG Duration 8 weeks 2 Impairment Pain and limited Cervical ROM Short Term Goal (STG Hilda is educated on a HEP for cervical ROM and ) mobility some progress STG Duration 4 weeks Administrative Assistant Goal (LTG) Improved cervical ROM and Hilda is better able to turn her head while driving pt notes it is becoming easier for cervical ROM now and to turn her head with driving LTG Duration 12 weeks 1 Impairment cervical spine pain rated 6-9 out of 10 that limits Hilda's ability to drive, sew, and quilt Senior Care Goal (LTG) Hilda reports a overall reduction in cervical pain and is able to return to her activities of driving, sewing, and quilting As of 10/18/24 pt notes pain is less severe and she is able to sew for 30 min at at time LTG Duration 8 weeks+ Assessment Summary Assessment I spent time educating Stefany on use of a walker for community ambulation due to her fall history. She reports she does have a walker. She is going to a wedding soon that is outside on uneven grass and I strongly encouraged her to use her walker Physical Therapy Plan Frequency and Duration Frequency of 2x/Week Treatment Duration of 8 treatment (weeks) Plan of Care Start 10/18/24 Date Plan of Care End 12/13/24 Date Therapeutic Interventions Therapeutic Home Exercise Program,Manual Therapy,Neuromuscular Re- Interventions education,Patient/Caregiver Education,Self-Care/Home Management,Soft Tissue Mobilization,Therapeutic Exercises Next Visit Focus/Plan Next Note Type Treatment Note Next Visit Plan return to gentle cervical ROM and exercises as tolerated for Stefany as well as STM and manual therapy techniques for pain control and muscle spasm
--- NOTE | 2024-10-30 18:12 | PT.OTN ---
Current Diagnoses Other spondylosis with myelopathy, cervical region (10/30/24) Physical Therapy Treatment Note PT OP: Cervical/Upper Extremity Start: 10/30/24 13:47 Freq: Status: Active Protocol: Document 10/30/24 13:47 [facility] (Rec: 10/30/24 13:58 [facility] [id number]) Out-Patient Physical Therapy Visit Information Visit Information Visit Type Treatment Note Visit Start Time 13:53 Visit Stop Time 14:35 Visit Number 10([id number]) Number of TOWEL DISTRIBUTOR Visits 1 OP-PT Subjective Patient Comments Patient Comments Pt reports left hand is more numb and tingling 3rd, 4th , 5th digits and medial UE, compared to last session with [facility] Patient reports she wasn't sure about the numbness at Ortho appt, so she didn't mention it, reports MD advised pt to start Meloxicam. Therapeutic Exercises Supine Exercises CS rotation AROM Supine Exercise Name on occipital float, positioned in chest patient services technician Side bilateral Reps/Minutes 2 min Comments verbal cues to perform in pain free range Sitting Exercises UT stretch Side bilateral Reps/Minutes 60 sec X 2 each side Comments VC to hold chair, avoid rotation, and to perform to stretch avoiding pain Manual Therapy Treatment Consent Patient gave verbal Yes consent for manual treatment Soft Tissue Mobilization bilateral pec Mobilization Type Cross-Friction,Rolling Intensity/Depth Moderate Body Position Hooklying STM for the upper traps bilaterally Body Location Also levator scap, scalenes at clavicle and CS paraspinals. Intensity/Depth Moderate Body Position Sitting Comments occipitals STM at origin in hooklying avoiding open area C6 to C 7 patient reports from bug bite Physical Therapy Assessment Goals 3 Impairment muscle guarding and spams of the right>left upper trapezius, SCM, and scalenes B Halfway Goal (LTG) Hilda presents with decreased muscle guarding and spasm of the upper trapezius, SCM, and scalene musculature 10/18/24 some progress LTG Duration 8 weeks 2 Impairment Pain and limited Cervical ROM Short Term Goal (STG Hilda is educated on a HEP for cervical ROM and ) mobility some progress STG Duration 4 weeks Halfway Goal (LTG) Improved cervical ROM and Hilda is better able to turn her head while driving pt notes it is becoming easier for cervical ROM now and to turn her head with driving LTG Duration 12 weeks 1 Impairment cervical spine pain rated 6-9 out of 10 that limits Hilda's ability to drive, sew, and quilt Knowledge Management Consultant Goal (LTG) Hilda reports a overall reduction in cervical pain and is able to return to her activities of driving, sewing, and quilting As of 10/18/24 pt notes pain is less severe and she is able to sew for 30 min at at time LTG Duration 8 weeks+ Assessment Summary Assessment Patient sits with visually improved posture, decreased sidebend L CS compared to start of session. Physical Therapy Plan Frequency and Duration Frequency of 2x/Week Treatment Duration of 8 treatment (weeks) Plan of Care Start 10/18/24 Date Plan of Care End 12/13/24 Date Therapeutic Interventions Therapeutic Home Exercise Program,Manual Therapy,Neuromuscular Re- Interventions education,Patient/Caregiver Education,Self-Care/Home Management,Soft Tissue Mobilization,Therapeutic Exercises Next Visit Focus/Plan Next Note Type Treatment Note Next Visit Plan return to gentle cervical ROM and exercises as tolerated for Stefany as well as STM and manual therapy techniques for pain control and muscle spasm
--- NOTE | 2024-11-01 14:43 | PT.OTN ---
Current Diagnoses Other spondylosis with myelopathy, cervical region (11/01/24) Physical Therapy Treatment Note PT OP: Cervical/Upper Extremity Start: 10/30/24 13:47 Freq: Status: Active Protocol: Document 11/01/24 13:50 [facility] (Rec: 11/01/24 14:41 [facility] [id number]) Out-Patient Physical Therapy Visit Information Visit Information Visit Type Treatment Note Visit Start Time 13:50 Visit Stop Time 14:35 Visit Number 11 Number of ORGANIZATION DEVELOPMENT CONSULTANT Visits 2 Progress Note Due 11/17/24 OP-PT Subjective Patient Comments Patient Comments Patient reports she had a couple of headaches, also numbness and tingling L UE is worse. Therapeutic Exercises Supine Exercises pec stretch Supine Exercise Name Chest equipment maintenance superintendent Side bilateral Reps/Minutes 2 min Comments verbal and tactile cues CS rotation AROM Supine Exercise Name on occipital float, positioned in chest equipment maintenance superintendent Side bilateral Reps/Minutes 2 min Comments verbal cues to perform in pain free range seated shoulder circles backwards Reps/Minutes x 10 reps 2 times per day Comments in standing th is session. Standing Exercises Single UE lift in counter plank position Reps/Minutes X 8 each UE Comments verbal and visual cues CS rotation in counter planks Side bilateral Reps/Minutes X 10 each side Comments verbal cues and visual cues Gait Training Gait Activity FWW Comments discussed using walker at wedding, Patient reports she will be bringing walker, and will be on grass. Patient reports she hasn't used the walker on grass before. Gait training with FWW on Grass. VC to pickle sorter FWW, position on ground and then take 2 steps. Good return demonstration. Also, advised patient to trial shoes in home prior to first time at [facility]. Manual Therapy Treatment Consent Patient gave verbal Yes consent for manual treatment Soft Tissue Mobilization bilateral pec Mobilization Type Cross-Friction,Rolling Intensity/Depth Moderate Body Position Hooklying STM for the upper traps bilaterally Body Location Also levator scap, scalenes at clavicle and CS paraspinals. Intensity/Depth Moderate Body Position Sitting Comments occipitals STM at origin in hooklying avoiding open area C6 to C 7 patient reports from bug bite Self-Care/Home Management Treatment Education Other Education Patient advised to make MD aware of increased numbness and tingling L hand. Physical Therapy Assessment Goals 3 Impairment muscle guarding and spams of the right>left upper trapezius, SCM, and scalenes B Prison Goal (LTG) Hilda presents with decreased muscle guarding and spasm of the upper trapezius, SCM, and scalene musculature 10/18/24 some progress LTG Duration 8 weeks 2 Impairment Pain and limited Cervical ROM Short Term Goal (STG Hilda is educated on a HEP for cervical ROM and ) mobility some progress STG Duration 4 weeks Prison Goal (LTG) Improved cervical ROM and Hilda is better able to turn her head while driving pt notes it is becoming easier for cervical ROM now and to turn her head with driving LTG Duration 12 weeks 1 Impairment cervical spine pain rated 6-9 out of 10 that limits Hilda's ability to drive, sew, and quilt Prison Goal (LTG) Hilda reports a overall reduction in cervical pain and is able to return to her activities of driving, sewing, and quilting As of 10/18/24 pt notes pain is less severe and she is able to sew for 30 min at at time LTG Duration 8 weeks+ Assessment Summary Assessment Patient into session with reports of increased numbness and tingling L hand, no change end of session. Good return demonstration for using 2WW as a standard walker on grass. Physical Therapy Plan Frequency and Duration Frequency of 2x/Week Treatment Duration of 8 treatment (weeks) Plan of Care Start 10/18/24 Date Plan of Care End 12/13/24 Date Next Visit Focus/Plan Next Note Type Treatment Note Next Visit Plan Revisit patient making MD aware of L UE tingling and numbness, and that it has been getting worse. return to gentle cervical ROM and exercises as tolerated for Stefany as well as STM and manual therapy techniques for pain control and muscle spasm
--- NOTE | 2024-11-06 14:45 | PT.OTN ---
Current Diagnoses Other spondylosis with myelopathy, cervical region (11/06/24) Physical Therapy Treatment Note PT OP: Cervical/Upper Extremity Start: 10/30/24 13:47 Freq: Status: Active Protocol: Document 11/06/24 13:48 [facility] (Rec: 11/06/24 14:43 [facility] [id number]) Out-Patient Physical Therapy Visit Information Visit Information Visit Type Treatment Note Visit Note Access Code: [email or web address] Visit Start Time 13:48 Visit Stop Time 14:34 Visit Number 12 Number of GRAVITY PROSPECTOR Visits 3 Progress Note Due 11/17/24 OP-PT Subjective Patient Comments Patient Comments Patient reports increased neck pain this morning. Patient reports she didn't have to walk on grass at wedding due to didn't make it in time with GPS redirecting, did spend increased time driving. Patient rates pain 2/10 increasing to 5 with CS extension and 2 -3/10 with rotation L AROM. Patient again reports tingling and numbness L 3rd, 4th, 5th fingers persists and this started post last fall on sidewalk. Patient again advised to make MD aware. Therapeutic Exercises Supine Exercises UE punch Supine Exercise Name gentle diagonal punching mvt Side bilateral Reps/Minutes X 10 Comments verbal and visual cues CS rotation AROM Supine Exercise Name on occipital float, positioned in chest epic cupid analyst Side bilateral Reps/Minutes 2 min Comments verbal cues to perform in pain free range Standing Exercises CS ext isometric Standing Exercise back to wall HEP Name Side bilateral Reps/Minutes X 10 Comments verbal and visual cues CS isometric reactive Side bilateral Resistance level one band Reps/Minutes X 8 seated then X 10 in hooklying, Comments verbal and visual cues CS rotation in counter planks Standing Exercise HEP Name Side bilateral Reps/Minutes X 10 each side Comments verbal cues and visual cues Manual Therapy Treatment Soft Tissue Mobilization bilateral pec Mobilization Type Cross-Friction,Rolling Intensity/Depth Moderate Body Position Hooklying STM for the upper traps bilaterally Body Location Also levator scap, scalenes at clavicle and CS paraspinals. Intensity/Depth Moderate Body Position Sitting Comments occipitals STM at origin in hooklying avoiding open area C6 to C 7 patient reports from bug bite Physical Therapy Assessment Goals 3 Impairment muscle guarding and spams of the right>left upper trapezius, SCM, and scalenes B Casing Blower Goal (LTG) Hilda presents with decreased muscle guarding and spasm of the upper trapezius, SCM, and scalene musculature 10/18/24 some progress LTG Duration 8 weeks 2 Impairment Pain and limited Cervical ROM Short Term Goal (STG Hilda is educated on a HEP for cervical ROM and ) mobility some progress STG Duration 4 weeks Casing Blower Goal (LTG) Improved cervical ROM and Hilda is better able to turn her head while driving pt notes it is becoming easier for cervical ROM now and to turn her head with driving LTG Duration 12 weeks 1 Impairment cervical spine pain rated 6-9 out of 10 that limits Hidla's ability to drive, sew, and quilt Correction Goal (LTG) Hilda reports a overall reduction in cervical pain and is able to return to her activities of driving, sewing, and quilting As of 10/18/24 pt notes pain is less severe and she is able to sew for 30 min at at time LTG Duration 8 weeks+ Assessment Summary Assessment Patient reports pain with AROM CS extension the same, rot L increased, reports a click during CS rotation in counter plank position increased pain Physical Therapy Plan Frequency and Duration Frequency of 2x/Week Treatment Duration of 8 treatment (weeks) Plan of Care Start 10/18/24 Date Plan of Care End 12/13/24 Date Next Visit Focus/Plan Next Note Type Treatment Note Next Visit Plan . return to gentle cervical ROM and exercises as tolerated for Stefany as well as STM and manual therapy techniques for pain control and muscle spasm
--- NOTE | 2024-11-08 18:19 | PT.OTN ---
Current Diagnoses Other spondylosis with myelopathy, cervical region (11/08/24) Physical Therapy Treatment Note PT OP: Cervical/Upper Extremity Start: 10/30/24 13:47 Freq: Status: Active Protocol: Document 11/08/24 13:51 [facility] (Rec: 11/08/24 14:34 [facility] [id number]) Out-Patient Physical Therapy Visit Information Visit Information Visit Type Treatment Note Visit Note ND next visit as due 11/18 Visit Start Time 13:50 Visit Stop Time 14:30 Visit Number 13 OP-PT Subjective Patient Comments Patient Comments pt has called her doctor and they want her to go to the ER for xrays she still has a lot of numbness into her left hand and left elbow she also has right sided purple toes which she will get a xray on too Manual Therapy Treatment Soft Tissue Mobilization upper trapezius release Body Position Sitting Comments trial of STM for upper traps in a sitting position today as ultrasound was performed first in sitting Ultrasound Therapy Treatment bilateral upper trapezius Patient Position Sitting Coupling Medium Ultrasound Gel Applicator Size (cm2 5 ) Intensity Setting (w 1.5 /cm2) Comments good tolerance for Ultrasound B upper trapezius 8 min each side Physical Therapy Assessment Goals 3 Impairment muscle guarding and spams of the right>left upper trapezius, SCM, and scalenes B Iron Guardrail Installer Goal (LTG) Hilda presents with decreased muscle guarding and spasm of the upper trapezius, SCM, and scalene musculature 10/18/24 some progress LTG Duration 8 weeks 2 Impairment Pain and limited Cervical ROM Short Term Goal (STG Hilda is educated on a HEP for cervical ROM and ) mobility some progress STG Duration 4 weeks Iron Guardrail Installer Goal (LTG) Improved cervical ROM and Hilda is better able to turn her head while driving pt notes it is becoming easier for cervical ROM now and to turn her head with driving LTG Duration 12 weeks 1 Impairment cervical spine pain rated 6-9 out of 10 that limits Hilda's ability to drive, sew, and quilt Longterm Goal (LTG) Hilda reports a overall reduction in cervical pain and is able to return to her activities of driving, sewing, and quilting As of 10/18/24 pt notes pain is less severe and she is able to sew for 30 min at at time LTG Duration 8 weeks+ Assessment Summary Assessment pt to seek Xrays to rule out orbital fracture and toe fracture, still experiencing the left sided radicular symptoms and numbness Physical Therapy Plan Frequency and Duration Frequency of 2x/Week Treatment Duration of 8 treatment (weeks) Plan of Care Start 10/18/24 Date Plan of Care End 12/13/24 Date Next Visit Focus/Plan Next Note Type Progress Note Next Visit Plan check in with how precious did with ultrasound and seated STM, check into xray results as pt will have those done today
--- NOTE | 2024-11-15 14:58 | PT.OPPOC ---
Physical, Occupational & Speech Therapy At [facility] Current Diagnoses Other spondylosis with myelopathy, cervical region (11/15/24) Visit Care Team Role Provider Type Kate Moreno MD Family Provider Physician Primary Care Provider Specialty: Family Practice SOLAR LAB TECHNICIAN Address: [address] [place], [address] Fax: Email: [email or web address] Aguayo PA-C Attending Provider Physician Referring Provider Specialty: Medical Address: [address] [place] [address], [id number] Email: Plan Of Care PT OP: Cervical/Upper Extremity Start: 10/30/24 13:47 Freq: Status: Active Protocol: Document 11/15/24 13:45 [facility] (Rec: 11/15/24 13:56 [facility] [id number][facility] Out-Patient Physical Therapy Visit Information Visit Information Visit Type Progress Note Visit Start Time 13:45 Visit Stop Time 14:30 Visit Number 14 OP-PT Subjective Patient Comments Patient Comments pt has a doctor appt tomorrow to get xrays orders. Stefany notes since her fall her right lateral hip is sore and she feels a lump on it that wasn't there before. She reports feeling more numbness into her thumb and fingers on the right side since her last fall October 24 Manual Therapy Treatment Soft Tissue Mobilization upper trapezius release Body Position Supine Comments manual release of the upper trapezius bilaterally suboccipital release Mobilization Type Sustained Pressure Intensity/Depth Moderate Body Position Hooklying Manual Techniques manual pec minor stretching B Body Location pec minor stretch B Body Position Hooklying Comments Manual pressure though the anterior shoulder to provide a pec minor stretch each side occipital release Reps/Duration contract relax with eyes moving cranially. Comments subooccipital release Physical Therapy Assessment Goals 3 Impairment muscle guarding and spams of the right>left upper trapezius, SCM, and scalenes B Envelope Machine Operator Goal (LTG) Hilda presents with decreased muscle guarding and spasm of the upper trapezius, SCM, and scalene musculature 10/18/24 some progress LTG Duration 8 weeks 2 Impairment Pain and limited Cervical ROM Short Term Goal (STG Hilda is educated on a HEP for cervical ROM and ) mobility some progress STG Duration 4 weeks Shelter Goal (LTG) Improved cervical ROM and Hilda is better able to turn her head while driving pt noted it was becoming easier for cervical ROM now and to turn her head with driving prior to her fall on 10/24/24. At this point her ROM is back to where it was when she was starting PT LTG Duration 12 weeks 1 Impairment cervical spine pain rated 6-9 out of 10 that limits Hilda's ability to drive, sew, and quilt Envelope Machine Operator Goal (LTG) Hilda reports a overall reduction in cervical pain and is able to return to her activities of driving, sewing, and quilting As of 10/18/24 pt notes pain is less severe and she is able to sew for 30 min at at time, and now after her fall 10/24/24 the pain has increased again limiting activity levels LTG Duration 8 weeks+ Assessment Summary Assessment pt to seek Xrays to rule out orbital fracture and toe fracture, still experiencing the left sided radicular symptoms and numbness. I did also talk to her about telling her doctor about the swelling on her right hip as well as she mentioned she fell both onto her right hip and right side of her face. Treatment continues to work on gentle STM techniques for her neck, cervical ROM, and gentle postural exercises Physical Therapy Plan Frequency and Duration Frequency of 2x/Week Treatment Duration of 8 treatment (weeks) Plan of Care Start 11/15/24 Date Plan of Care End 01/10/25 Date Therapeutic Interventions Therapeutic Home Exercise Program,Manual Therapy,Neuromuscular Re- Interventions education,Patient/Caregiver Education,Self-Care/Home Management,Soft Tissue Mobilization,Therapeutic Exercises Next Visit Focus/Plan Next Note Type Treatment Note Next Visit Plan continue working on pain relief of the cervical spine and left UE, cervical ROM, postural exercises, and manual therapy treatments Plan of Care Dates Plan of Care Start Date 11/15/24 Plan of Care End Date 01/10/25 Electronically Signed by: Palmira Chong, PT 11/15/24 [id number] If you are in agreement with this Plan of Care, please return a signed and dated copy. I have reviewed this Plan of Care and certify that the skilled therapy services above are required to meet the patient?s needs. Physician Signature Date Printed Name and Credentials Clinical Instructor Signature Printed Name and Credentials
--- NOTE | 2024-11-20 13:15 | PT-OP ANOTE ---
Phoned patient regarding no show. Patient comments she thought appt was 1:45, also comments having difficulty with time. Pt made aware of no show policy, given time and date of next appointment and phone number for front tender.
--- NOTE | 2024-11-22 15:14 | PT.OTN ---
Current Diagnoses Other spondylosis with myelopathy, cervical region (11/22/24) Physical Therapy Treatment Note PT OP: Cervical/Upper Extremity Start: 10/30/24 13:47 Freq: Status: Active Protocol: Document 11/22/24 13:47 AB (Rec: 11/22/24 14:25 AB [id number]) Out-Patient Physical Therapy Visit Information Visit Information Visit Type Treatment Note Visit Start Time 13:47 Visit Stop Time 14:32 Visit Number 15 Number of SENIOR SQL DEVELOPER Visits 1 OP-PT Subjective Patient Comments Patient Comments Patient reports the neck has it's good moments and back moments. Patient reports she got the face and L arm, but not the hip or foot. AROM rotation L 23deg R ~27 deg Therapeutic Exercises Supine Exercises UE punch Supine Exercise Name fwd serratus punch then gentle diagonal punching mvt Side bilateral Reps/Minutes X 15 Comments verbal and visual cues CS rotation AROM Supine Exercise Name on occipital float, positioned in chest psychology technician Side bilateral Reps/Minutes 2 min Comments verbal cues to perform in pain free range Sidelying Exercises sidelying reach and pull with gentle thoracic rotation Side left Reps/Minutes X 2 not nicole reports shoulder pain Comments Verbal cues and tactile cues Sitting Exercises UT stretch Side bilateral Reps/Minutes 30 sec X 1each side Comments VC to hold chair, inc vc for multimedia manager hold Standing Exercises CS isometric reactive Side bilateral Resistance level one band Reps/Minutes stand Comments verbal and visual cues Manual Therapy Treatment Consent Patient gave verbal Yes consent for manual treatment Soft Tissue Mobilization bilateral pec Mobilization Type Cross-Friction,Rolling Intensity/Depth Moderate Body Position Hooklying STM for the upper traps bilaterally Body Location Also levator scap, scalenes at clavicle and CS paraspinals. Intensity/Depth Moderate Body Position Sitting Comments occipitals STM at origin in hooklying Joint Mobilizations scapular mobilization Joint Bilat Direction into dep and add grade III, sidelying Physical Therapy Assessment Goals 3 Impairment muscle guarding and spams of the right>left upper trapezius, SCM, and scalenes B Watch Parts Grinder Goal (LTG) Hilda presents with decreased muscle guarding and spasm of the upper trapezius, SCM, and scalene musculature 10/18/24 some progress LTG Duration 8 weeks 2 Impairment Pain and limited Cervical ROM Short Term Goal (STG Hilda is educated on a HEP for cervical ROM and ) mobility some progress STG Duration 4 weeks Watch Parts Grinder Goal (LTG) Improved cervical ROM and Hilda is better able to turn her head while driving pt noted it was becoming easier for cervical ROM now and to turn her head with driving prior to her fall on 10/24/24. At this point her ROM is back to where it was when she was starting PT LTG Duration 12 weeks 1 Impairment cervical spine pain rated 6-9 out of 10 that limits Hilda's ability to drive, sew, and quilt Senior Care Goal (LTG) Hilda reports a overall reduction in cervical pain and is able to return to her activities of driving, sewing, and quilting As of 10/18/24 pt notes pain is less severe and she is able to sew for 30 min at at time, and now after her fall 10/24/24 the pain has increased again limiting activity levels LTG Duration 8 weeks+ Assessment Summary Assessment No change in AROM CS rotation this session. Patient ed to phone MD regarding ex rays and also the reports of numbness L UE. Physical Therapy Plan Frequency and Duration Frequency of 2x/Week Treatment Duration of 8 treatment (weeks) Plan of Care Start 11/15/24 Date Plan of Care End 01/10/25 Date Next Visit Focus/Plan Next Note Type Treatment Note Next Visit Plan continue working on pain relief of the cervical spine and left UE, cervical ROM, postural exercises, and manual therapy treatments
--- NOTE | 2024-11-28 12:15 | PT.OTN ---
Current Diagnoses Other spondylosis with myelopathy, cervical region (11/28/24) Physical Therapy Treatment Note PT OP: Cervical/Upper Extremity Start: 10/30/24 13:47 Freq: Status: Active Protocol: Document 11/28/24 10:46 [facility] (Rec: 11/28/24 10:52 [facility] [id number]) Out-Patient Physical Therapy Visit Information Visit Information Visit Type Treatment Note Visit Start Time 10:46 Visit Stop Time 11:30 Visit Number 16 Number of LAMINATOR PREFORMS Visits 0 OP-PT Subjective Patient Comments Patient Comments pt notes her pain comes and goes but today it is not as bad, X rays have come back and are negative for fractures Patient Reported Improving Progress Manual Therapy Treatment Soft Tissue Mobilization upper trapezius release Body Position Supine Comments manual release of the upper trapezius bilaterally STM for the upper traps bilaterally Body Location Also levator scap, scalenes at clavicle and CS paraspinals. Intensity/Depth Moderate Body Position Sitting Comments occipitals STM at origin in hooklying suboccipital release Mobilization Type Sustained Pressure Intensity/Depth Moderate Body Position Hooklying Physical Therapy Assessment Goals 3 Impairment muscle guarding and spams of the right>left upper trapezius, SCM, and scalenes B Senior Android Software Engineer Goal (LTG) Hilda presents with decreased muscle guarding and spasm of the upper trapezius, SCM, and scalene musculature 10/18/24 some progress LTG Duration 8 weeks 2 Impairment Pain and limited Cervical ROM Short Term Goal (STG Hilda is educated on a HEP for cervical ROM and ) mobility some progress STG Duration 4 weeks Senior Android Software Engineer Goal (LTG) Improved cervical ROM and Hilda is better able to turn her head while driving pt noted it was becoming easier for cervical ROM now and to turn her head with driving prior to her fall on 10/24/24. At this point her ROM is back to where it was when she was starting PT LTG Duration 12 weeks 1 Impairment cervical spine pain rated 6-9 out of 10 that limits Hilda's ability to drive, sew, and quilt Senior Android Software Engineer Goal (LTG) Hilda reports a overall reduction in cervical pain and is able to return to her activities of driving, sewing, and quilting As of 10/18/24 pt notes pain is less severe and she is able to sew for 30 min at at time, and now after her fall 10/24/24 the pain has increased again limiting activity levels LTG Duration 8 weeks+ Assessment Summary Assessment PT is doing better today, she is relieved no fractures and is not in as much pain today Physical Therapy Plan Frequency and Duration Frequency of 2x/Week Treatment Duration of 8 treatment (weeks) Plan of Care Start 11/15/24 Date Plan of Care End 01/10/25 Date Next Visit Focus/Plan Next Note Type Treatment Note Next Visit Plan continue working on pain relief of the cervical spine and left UE, cervical ROM, postural exercises, and manual therapy treatments
--- NOTE | 2024-11-30 12:42 | PT.OTN ---
Current Diagnoses Other spondylosis with myelopathy, cervical region (11/30/24) Physical Therapy Treatment Note PT OP: Cervical/Upper Extremity Start: 10/30/24 13:47 Freq: Status: Active Protocol: Document 11/30/24 10:27 AB (Rec: 11/30/24 10:53 AB [id number]) Out-Patient Physical Therapy Visit Information Visit Information Visit Type Treatment Note Visit Start Time 10:47 Visit Stop Time 11:33 Visit Number 17 Number of LENS SHAPER GRINDER Visits 1 Progress Note Due 12/15/24 OP-PT Subjective Patient Comments Patient Comments Patient reports the neck is moving better today, had a massage yesterday and a headache post, which has resolved. AROM R>L CS rotation start of session seated. Stefany rates pain 0/10 start of session. rates pain 3/ [address] and hits a bump in the road or if turning head to far without turning body. Cardio Equipment Upper Body Ergometer (UBE) Duration (Minutes) 2 Other retro, actually 2.5 min and lowest speed. Therapeutic Exercises Supine Exercises UE punch Supine Exercise Name fwd serratus punch then gentle diagonal punching mvt Side bilateral Reps/Minutes X 15 then X 15 with 1 lb ( to HEP Comments verbal and visual cues CS rotation AROM Supine Exercise Name on occipital float, positioned in chest garage door service technician Side bilateral Reps/Minutes 2 min Comments verbal cues to perform in pain free range, limited by pain today supine gentle chin tuck Reps/Minutes x 10 reps, on occipital float Sidelying Exercises sidelying reach and pull with gentle thoracic rotation Sidelying Exercise open book Name Side left Reps/Minutes X 5 each side Comments Verbal cues and tactile cues Standing Exercises CS ext isometric Standing Exercise back to wall HEP Name Manual Therapy Treatment Consent Patient gave verbal Yes consent for manual treatment Soft Tissue Mobilization STM for the upper traps bilaterally Body Location Also levator scap, scalenes at clavicle and CS paraspinals. Intensity/Depth Moderate Body Position Sitting Comments occipitals STM at origin in hooklying suboccipital release Mobilization Type Sustained Pressure Intensity/Depth Moderate Body Position Hooklying Comments contract relax with eyes Physical Therapy Assessment Goals 3 Impairment muscle guarding and spams of the right>left upper trapezius, SCM, and scalenes B Jail Goal (LTG) Hilda presents with decreased muscle guarding and spasm of the upper trapezius, SCM, and scalene musculature 10/18/24 some progress LTG Duration 8 weeks 2 Impairment Pain and limited Cervical ROM Short Term Goal (STG Hilda is educated on a HEP for cervical ROM and ) mobility some progress STG Duration 4 weeks Felt Hooker Goal (LTG) Improved cervical ROM and Hilda is better able to turn her head while driving pt noted it was becoming easier for cervical ROM now and to turn her head with driving prior to her fall on 10/24/24. At this point her ROM is back to where it was when she was starting PT LTG Duration 12 weeks 1 Impairment cervical spine pain rated 6-9 out of 10 that limits Hilda's ability to drive, sew, and quilt Jail Goal (LTG) Hilda reports a overall reduction in cervical pain and is able to return to her activities of driving, sewing, and quilting As of 10/18/24 pt notes pain is less severe and she is able to sew for 30 min at at time, and now after her fall 10/24/24 the pain has increased again limiting activity levels LTG Duration 8 weeks+ Assessment Summary Assessment Visibly Decreased AROM CS rotation L and right end of session. Patient requests therapist write something about her fall on sidewalk. Patient advised to speak to medical records regarding her treatment here. Physical Therapy Plan Frequency and Duration Frequency of 2x/Week Treatment Duration of 8 treatment (weeks) Plan of Care Start 11/15/24 Date Plan of Care End 01/10/25 Date Next Visit Focus/Plan Next Note Type Treatment Note Next Visit Plan continue working on pain relief of the cervical spine and left UE, cervical ROM, postural exercises, and manual therapy treatments
--- NOTE | 2024-12-04 12:24 | PT.OTN ---
Current Diagnoses Other spondylosis with myelopathy, cervical region (12/04/24) Physical Therapy Treatment Note PT OP: Cervical/Upper Extremity Start: 10/30/24 13:47 Freq: Status: Active Protocol: Document 12/04/24 10:46 AB (Rec: 12/04/24 12:05 AB [id number]) Out-Patient Physical Therapy Visit Information Visit Information Visit Type Treatment Note Visit Start Time 11:32 Visit Stop Time 12:18 Visit Number 18 Number of ATOMIC WELDER Visits 2 Progress Note Due 12/15/24 OP-PT Subjective Patient Comments Patient Comments Stefany rates pain at 0/10 start of session, AROM CS rotation R> L start of session. Cardio Equipment Upper Body Ergometer (UBE) Duration (Minutes) 6 RPM 65 Height 6 Other 3fwd 3 retro standing, VC for core/focus nose/head on one spot ie avoid mvt Therapeutic Exercises Supine Exercises UE punch Supine Exercise Name fwd serratus punch then gentle diagonal punching mvt Side bilateral Resistance 2 lb Comments verbal and visual cues Sidelying Exercises sidelying reach and pull with gentle thoracic rotation Sidelying Exercise open book Name Side left Reps/Minutes X 3 each side Comments tactile cues at trunk, verbal cues to hold X 3 breaths end range Sitting Exercises UT stretch Side bilateral Reps/Minutes 30 sec X 1each side Comments VC to hold chair, inc vc for time broker hold Standing Exercises CS isometric reactive Standing Exercise back to wall Name Side bilateral Resistance level one band Equipment Used X 10 Reps/Minutes stand Comments verbal cues to keep head on wall Single UE lift in counter plank position Reps/Minutes X 8 each UE Comments verbal and visual cues single arm row Side bilateral Resistance [id number], level 3 band Reps/Minutes 10 X 2 Comments monitored for pain, reports pain end ROM, VC perf pain free range Manual Therapy Treatment Consent Patient gave verbal Yes consent for manual treatment Soft Tissue Mobilization CS paraspinals Mobilization Type Cross-Friction,Sustained Pressure Intensity/Depth Moderate Body Position Sitting thoracic paraspinals Body Location bilateral Mobilization Type Cross-Friction,Sustained Pressure Intensity/Depth Moderate Body Position Sidelying Physical Therapy Assessment Goals 3 Impairment muscle guarding and spams of the right>left upper trapezius, SCM, and scalenes B Correction Goal (LTG) Hilda presents with decreased muscle guarding and spasm of the upper trapezius, SCM, and scalene musculature 10/18/24 some progress LTG Duration 8 weeks 2 Impairment Pain and limited Cervical ROM Short Term Goal (STG Hilda is educated on a HEP for cervical ROM and ) mobility some progress STG Duration 4 weeks Correction Goal (LTG) Improved cervical ROM and Hilda is better able to turn her head while driving pt noted it was becoming easier for cervical ROM now and to turn her head with driving prior to her fall on 10/24/24. At this point her ROM is back to where it was when she was starting PT LTG Duration 12 weeks 1 Impairment cervical spine pain rated 6-9 out of 10 that limits Hilda's ability to drive, sew, and quilt Correction Goal (LTG) Hilda reports a overall reduction in cervical pain and is able to return to her activities of driving, sewing, and quilting As of 10/18/24 pt notes pain is less severe and she is able to sew for 30 min at at time, and now after her fall 10/24/24 the pain has increased again limiting activity levels LTG Duration 8 weeks+ Assessment Summary Assessment AROM CS rotation L Visible increase end of session, not WNL or equal to R, rates CS pain 2/10 end of session. Patient required min assist for sidelying to sit this session, and may benefit from short sit exercise to improve nicole to sidelying to sit and preventing supine to sit with sit up pattern that increases forces on CS. Physical Therapy Plan Frequency and Duration Frequency of 2x/Week Treatment Duration of 8 treatment (weeks) Plan of Care Start 11/15/24 Date Plan of Care End 01/10/25 Date Next Visit Focus/Plan Next Note Type Treatment Note Next Visit Plan continue working on pain relief of the cervical spine and left UE, cervical ROM, postural exercises, and manual therapy treatments. Short sit to upright, possibly supine to sit in normal mvt pattern as an exercise.
--- NOTE | 2024-12-06 16:57 | PT.OTN ---
Current Diagnoses Other spondylosis with myelopathy, cervical region (12/06/24) Physical Therapy Treatment Note PT OP: Cervical/Upper Extremity Start: 10/30/24 13:47 Freq: Status: Active Protocol: Document 12/06/24 13:00 [facility] (Rec: 12/06/24 13:44 [facility] [id number]) Out-Patient Physical Therapy Visit Information Visit Information Visit Type Treatment Note Visit Start Time 13:00 Visit Stop Time 13:45 Visit Number 19 Number of FOOD SAFETY MANAGER Visits 0 Progress Note Due 12/15/24 OP-PT Subjective Patient Comments Patient Comments pt rates her pain is intermittent, she will feel it in her jaw and behind her right ear and into her head. Therapeutic Exercises Supine Exercises CS rotation AROM Supine Exercise Name on occipital float, positioned in chest forestry scientist Side bilateral Reps/Minutes 2 min Comments verbal cues to perform in pain free range, limited by pain today seated shoulder circles backwards Reps/Minutes x 10 reps 2 times per day Comments in standing th is session. supine gentle chin tuck Reps/Minutes x 10 reps, on occipital float Sitting Exercises seated scapula squeeze Side bilateral Reps/Minutes 5 reps holding 5 seconds Manual Therapy Treatment Soft Tissue Mobilization CS paraspinals Mobilization Type Cross-Friction,Sustained Pressure Intensity/Depth Moderate Body Position Sitting bilateral pec Mobilization Type Cross-Friction,Rolling Intensity/Depth Moderate Body Position Hooklying thoracic paraspinals Intensity/Depth Moderate upper trapezius release Body Position Supine Comments manual release of the upper trapezius bilaterally STM for the upper traps bilaterally Body Location Also levator scap, scalenes at clavicle and CS paraspinals. Intensity/Depth Moderate Body Position Sitting Comments occipitals STM at origin in hooklying suboccipital release Mobilization Type Sustained Pressure Intensity/Depth Moderate Body Position Hooklying Comments contract relax with eyes Physical Therapy Assessment Goals 3 Impairment muscle guarding and spams of the right>left upper trapezius, SCM, and scalenes B Dry Paste Supervisor Goal (LTG) Hilda presents with decreased muscle guarding and spasm of the upper trapezius, SCM, and scalene musculature 10/18/24 some progress LTG Duration 8 weeks 2 Impairment Pain and limited Cervical ROM Short Term Goal (STG Hilda is educated on a HEP for cervical ROM and ) mobility some progress STG Duration 4 weeks Dry Paste Supervisor Goal (LTG) Improved cervical ROM and Hilda is better able to turn her head while driving pt noted it was becoming easier for cervical ROM now and to turn her head with driving prior to her fall on 10/24/24. At this point her ROM is back to where it was when she was starting PT LTG Duration 12 weeks 1 Impairment cervical spine pain rated 6-9 out of 10 that limits Hilda's ability to drive, sew, and quilt Snf Goal (LTG) Hilda reports a overall reduction in cervical pain and is able to return to her activities of driving, sewing, and quilting As of 10/18/24 pt notes pain is less severe and she is able to sew for 30 min at at time, and now after her fall 10/24/24 the pain has increased again limiting activity levels LTG Duration 8 weeks+ Assessment Summary Assessment Able to tolerate scapula squeezes in sitting today, still feeling the pain in the jaw and behind the head, pt not c/o the radicular symptoms today Physical Therapy Plan Frequency and Duration Frequency of 2x/Week Treatment Duration of 8 treatment (weeks) Plan of Care Start 11/15/24 Date Plan of Care End 01/10/25 Date Next Visit Focus/Plan Next Note Type Treatment Note Next Visit Plan continue working on pain relief of the cervical spine and left UE, cervical ROM, postural exercises, and manual therapy treatments. Short sit to upright, possibly supine to sit in normal mvt pattern as an exercise.
--- NOTE | 2024-12-13 16:00 | PT.OTN ---
Current Diagnoses Other spondylosis with myelopathy, cervical region (12/13/24) Physical Therapy Treatment Note PT OP: Cervical/Upper Extremity Start: 10/30/24 13:47 Freq: Status: Active Protocol: Document 12/13/24 11:34 [facility] (Rec: 12/13/24 11:42 [facility] [id number]) Out-Patient Physical Therapy Visit Information Visit Information Visit Type Progress Note Visit Start Time 11:30 Visit Stop Time 12:15 Visit Number 20 Number of BURGLAR ALARM OPERATOR Visits 0 OP-PT Subjective Patient Comments Patient Comments pt reports she is feeling better as she was sick and the pain was going up the right side, last night it felt like there was drainage coming out of her ear. She has a MD appt 12/31/24. She feels like the numbness in her last three fingers is getting worse on her left side and it is constant Therapeutic Exercises Supine Exercises CS rotation AROM Supine Exercise Name on occipital float, positioned in chest advance seal delivery system maintainer Side bilateral Reps/Minutes 2 min Comments verbal cues to perform in pain free range, limited by pain today supine gentle chin tuck Reps/Minutes x 10 reps, on occipital float Manual Therapy Treatment Soft Tissue Mobilization CS paraspinals Mobilization Type Cross-Friction,Sustained Pressure Intensity/Depth Moderate Body Position Sitting bilateral pec Mobilization Type Cross-Friction,Rolling Intensity/Depth Moderate Body Position Hooklying upper trapezius release Body Position Supine Comments manual release of the upper trapezius bilaterally Manual Techniques occipital release Reps/Duration contract relax with eyes moving cranially. Comments subooccipital release Physical Therapy Assessment Goals 3 Impairment muscle guarding and spams of the right>left upper trapezius, SCM, and scalenes B Electroplating Sales Representative Goal (LTG) Hilda presents with decreased muscle guarding and spasm of the upper trapezius, SCM, and scalene musculature 10/18/24 some progress LTG Duration 8 weeks 2 Impairment Pain and limited Cervical ROM Short Term Goal (STG Hilda is educated on a HEP for cervical ROM and ) mobility some progress STG Duration 4 weeks Correction Goal (LTG) Improved cervical ROM and Hilda is better able to turn her head while driving pt noted it was becoming easier for cervical ROM now and to turn her head with driving prior to her fall on 10/24/24. At this point her ROM is back to where it was when she was starting PT LTG Duration 12 weeks 1 Impairment cervical spine pain rated 6-9 out of 10 that limits Hilda's ability to drive, sew, and quilt Correction Goal (LTG) Hilda reports a overall reduction in cervical pain and is able to return to her activities of driving, sewing, and quilting As of 10/18/24 pt notes pain is less severe and she is able to sew for 30 min at at time, and now after her fall 10/24/24 the pain has increased again limiting activity levels LTG Duration 8 weeks+ Assessment Summary Assessment Stefany has 4 visits left in PT and she she would benefit from PT for balance and gait training. Her falls have significantly affected her neck and her balance is very shakey at this point. She will need a new referral for her balance. Physical Therapy Plan Frequency and Duration Frequency of 2x/Week Treatment Duration of 8 treatment (weeks) Plan of Care Start 12/13/24 Date Plan of Care End 02/07/25 Date Next Visit Focus/Plan Next Note Type Treatment Note Next Visit Plan continue working on pain relief of the cervical spine and left UE, cervical ROM, postural exercises, and manual therapy treatments. Short sit to upright, possibly supine to sit in normal mvt pattern as an exercise.
--- NOTE | 2025-01-03 15:38 | PT.OTN ---
Current Diagnoses Other spondylosis with myelopathy, cervical region (01/03/25) Physical Therapy Treatment Note PT OP: Cervical/Upper Extremity Start: 10/30/24 13:47 Freq: Status: Active Protocol: Document 01/03/25 13:45 [facility] (Rec: 01/03/25 14:45 AB [id number]) Out-Patient Physical Therapy Visit Information Visit Information Visit Type Treatment Note Visit Start Time 13:50 Visit Stop Time 14:34 Visit Number 21 Number of WAX POURER Visits 1 Progress Note Due 01/12/25 OP-PT Subjective Patient Comments Patient Comments Stefany reports R sided neck pain lasted 2.5 days last week and most of one day this week. Patient rates R sided neck pain 2/10 start of session. AROM CS rotation ~40% L and right with movement left poor quality mvt, ie starts and stops. Therapeutic Exercises Sitting Exercises isometric CS sidebend Side bilateral Reps/Minutes X 10 each side Comments verbal and visual cues short sit to upright Sitting Exercise HEP Name Reps/Minutes X 8 Comments verbal and visual cues UT stretch Side bilateral Reps/Minutes 30 - 60 sec X 2each side Comments VC to hold chair, inc vc for multimedia designer hold Standing Exercises CS rotation in counter planks Side bilateral Reps/Minutes X 10 Comments verbal and tactile cues for head position Manual Therapy Treatment Consent Patient gave verbal Yes consent for manual treatment Soft Tissue Mobilization STM for the upper traps bilaterally Body Location Also levator scap, scalenes at clavicle and CS paraspinals. Mobilization Type Cross-Friction,Rolling,Sustained Pressure Intensity/Depth Moderate Body Position Sitting Physical Therapy Assessment Goals 3 Impairment muscle guarding and spams of the right>left upper trapezius, SCM, and scalenes B Operations Chief Goal (LTG) Hilda presents with decreased muscle guarding and spasm of the upper trapezius, SCM, and scalene musculature 10/18/24 some progress LTG Duration 8 weeks 2 Impairment Pain and limited Cervical ROM Short Term Goal (STG Hilda is educated on a HEP for cervical ROM and ) mobility some progress STG Duration 4 weeks Halfway Goal (LTG) Improved cervical ROM and Hilda is better able to turn her head while driving pt noted it was becoming easier for cervical ROM now and to turn her head with driving prior to her fall on 10/24/24. At this point her ROM is back to where it was when she was starting PT LTG Duration 12 weeks 1 Impairment cervical spine pain rated 6-9 out of 10 that limits Hilda's ability to drive, sew, and quilt Halfway Goal (LTG) Hilda reports a overall reduction in cervical pain and is able to return to her activities of driving, sewing, and quilting As of 10/18/24 pt notes pain is less severe and she is able to sew for 30 min at at time, and now after her fall 10/24/24 the pain has increased again limiting activity levels LTG Duration 8 weeks+ Assessment Summary Assessment Patient reports having no pain end of session. CS sidebending L and R continues to be very limited. Physical Therapy Plan Frequency and Duration Frequency of 2x/Week Treatment Duration of 8 treatment (weeks) Plan of Care Start 12/13/24 Date Plan of Care End 02/07/25 Date Next Visit Focus/Plan Next Note Type Treatment Note Next Visit Plan continue working on pain relief of the cervical spine and left UE, cervical ROM, postural exercises, and manual therapy treatments. Short sit to upright, possibly supine to sit in normal mvt pattern as an exercise.
--- NOTE | 2025-01-10 16:43 | PT.OPPN ---
Current Diagnoses Other spondylosis with myelopathy, cervical region (01/10/25) Physical Therapy Progress Note PT OP: Cervical/Upper Extremity Start: 10/30/24 13:47 Freq: Status: Active Protocol: Document 01/10/25 10:47 [facility] (Rec: 01/10/25 10:55 [facility] [id number]) Out-Patient Physical Therapy Visit Information Visit Information Visit Type Progress Note Visit Start Time 10:45 Visit Stop Time 11:30 Visit Number 22 Number of NURSERY HELPER Visits 0 OP-PT Subjective Patient Comments Patient Comments pt notes she tried to do her exercises but it hurt her shoulders, she has been trying to look at the stars when out walking her dog but its hard to look up. Stefany notes she has been able to work on her CHARG[employer]fm Manual Therapy Treatment Consent Patient gave verbal Yes consent for manual treatment Soft Tissue Mobilization CS paraspinals Mobilization Type Cross-Friction,Sustained Pressure Intensity/Depth Moderate Body Position Sitting bilateral pec Mobilization Type Cross-Friction,Rolling Intensity/Depth Moderate Body Position Hooklying thoracic paraspinals Intensity/Depth Moderate upper trapezius release Body Position Supine Comments manual release of the upper trapezius bilaterally STM for the upper traps bilaterally Body Location Also levator scap, scalenes at clavicle and CS paraspinals. Mobilization Type Cross-Friction,Rolling,Sustained Pressure Intensity/Depth Moderate Body Position Sitting suboccipital release Mobilization Type Sustained Pressure Intensity/Depth Moderate Body Position Hooklying Comments contract relax with eyes Physical Therapy Assessment Goals 3 Impairment muscle guarding and spams of the right>left upper trapezius, SCM, and scalenes B Roller Gold Leaf Goal (LTG) Hilda presents with decreased muscle guarding and spasm of the upper trapezius, SCM, and scalene musculature 10/18/24 some progress LTG Duration 8 weeks 2 Impairment Pain and limited Cervical ROM Short Term Goal (STG Hilda is educated on a HEP for cervical ROM and ) mobility some progress STG Duration 4 weeks Roller Gold Leaf Goal (LTG) Improved cervical ROM and Hilda is better able to turn her head while driving pt noted it was becoming easier for cervical ROM now and to turn her head with driving prior to her fall on 10/24/24. At this point her ROM is back to where it was when she was starting PT LTG Duration 12 weeks 1 Impairment cervical spine pain rated 6-9 out of 10 that limits Hilda's ability to drive, sew, and quilt Roller Gold Leaf Goal (LTG) Hilda reports a overall reduction in cervical pain and is able to return to her activities of driving, sewing, and quilting As of 10/18/24 pt notes pain is less severe and she is able to sew for 30 min at at time, and now after her fall 10/24/24 the pain has increased again limiting activity levels LTG Duration 8 weeks+ Assessment Summary Assessment Pt is doing better with her neck overall as she has been able to resume quilting and walking the dog. She has two visits left for her neck and then has a new referral for balance which she would benefit greatly from Physical Therapy Plan Frequency and Duration Frequency of 2x/Week Treatment Duration of 8 treatment (weeks) Plan of Care Start 12/13/24 Date Plan of Care End 02/07/25 Date Next Visit Focus/Plan Next Note Type Treatment Note Next Visit Plan continue working on pain relief of the cervical spine and left UE, cervical ROM, postural exercises, and manual therapy treatments. Short sit to upright, possibly supine to sit in normal mvt pattern as an exercise.
--- NOTE | 2025-01-15 15:30 | PT.OTN ---
Current Diagnoses Other spondylosis with myelopathy, cervical region (01/15/25) Physical Therapy Treatment Note PT OP: Cervical/Upper Extremity Start: 10/30/24 13:47 Freq: Status: Active Protocol: Document 01/15/25 13:47 [facility] (Rec: 01/15/25 14:34 AB [id number]) Out-Patient Physical Therapy Visit Information Visit Information Visit Type Treatment Note Visit Start Time 13:49 Visit Stop Time 14:32 Visit Number 23 Number of BALLET TEACHER Visits 1 Progress Note Due 02/09/25 OP-PT Subjective Patient Comments Patient Comments Patient reports the neck is better. Patient reports she is seeing a surgeon for the numbness in L UE on January 25. Patient reports shoulder pain and L UE numbness is making it difficult to dress or anything that involves use of both sides. Therapeutic Exercises Supine Exercises UE punch Supine Exercise Name fwd serratus punch then gentle diagonal punching mvt Side bilateral Resistance 2 lb Reps/Minutes initiated X 3 with 2lb then X 15 without band Comments verbal and visual cues diaphragmatic breathing Supine Exercise Name Seated with pillows on lap, VC to expand core/abdominal area into pillows Reps/Minutes x 1-2 min pec stretch Supine Exercise Name Chest estate manager Side bilateral Reps/Minutes 2 min Comments verbal and tactile cues CS rotation AROM Supine Exercise Name on occipital float, positioned in chest estate manager Side bilateral Reps/Minutes 2 min Comments verbal cues to perform in pain free range, limited by pain today seated shoulder circles backwards Reps/Minutes x 10 reps X 3 Comments Patient ed for every other day supine gentle chin tuck Reps/Minutes x 15reps, Comments monitored for pain Sidelying Exercises sidelying reach and pull with gentle thoracic rotation Sidelying Exercise sidelying thoracic roll Name Side bilateral Reps/Minutes X10 each side Comments VC for performing mvt in pain free range Sitting Exercises short sit to upright Sitting Exercise HEP Name Reps/Minutes X 10 Comments VC for 1/2 to mat for inc core dec use of L UE Standing Exercises CS rotation in counter planks Side bilateral Reps/Minutes X 20 Comments verbal and tactile cues for head position Manual Therapy Treatment Consent Patient gave verbal Yes consent for manual treatment Soft Tissue Mobilization CS paraspinals Mobilization Type Cross-Friction,Sustained Pressure Intensity/Depth Moderate Body Position Sitting Physical Therapy Assessment Goals 3 Impairment muscle guarding and spams of the right>left upper trapezius, SCM, and scalenes B Computer Information Systems Instructor Goal (LTG) Hilda presents with decreased muscle guarding and spasm of the upper trapezius, SCM, and scalene musculature 10/18/24 some progress LTG Duration 8 weeks 2 Impairment Pain and limited Cervical ROM Short Term Goal (STG Hilda is educated on a HEP for cervical ROM and ) mobility some progress STG Duration 4 weeks Computer Information Systems Instructor Goal (LTG) Improved cervical ROM and Hilda is better able to turn her head while driving pt noted it was becoming easier for cervical ROM now and to turn her head with driving prior to her fall on 10/24/24. At this point her ROM is back to where it was when she was starting PT LTG Duration 12 weeks 1 Impairment cervical spine pain rated 6-9 out of 10 that limits Hilda's ability to drive, sew, and quilt Computer Information Systems Instructor Goal (LTG) Hilda reports a overall reduction in cervical pain and is able to return to her activities of driving, sewing, and quilting As of 10/18/24 pt notes pain is less severe and she is able to sew for 30 min at at time, and now after her fall 10/24/24 the pain has increased again limiting activity levels LTG Duration 8 weeks+ Assessment Summary Assessment Patient into session with reports of no neck pain. HEP condensed and patient ed to perform every other day to prepare for discharge. Physical Therapy Plan Frequency and Duration Frequency of 2x/Week Treatment Duration of 8 treatment (weeks) Plan of Care Start 12/13/24 Date Plan of Care End 02/07/25 Date Next Visit Focus/Plan Next Note Type Discharge Summary Next Visit Plan continue working on pain relief of the cervical spine and left UE, cervical ROM, postural exercises, and manual therapy treatments. Short sit to upright, possibly supine to sit in normal mvt pattern as an exercise. Assess nicole to change in HEP.
--- NOTE | 2025-01-17 12:23 | PT.OPDS ---
Current Diagnoses Other spondylosis with myelopathy, cervical region (01/17/25) Visit Care Team Role Provider Type Kate Moreno MD Family Provider Physician Primary Care Provider Specialty: Family Practice JIG INSPECTOR Address: [address] [place], [address] Fax: Email: [email or web address] Aguayo [email or web address] Attending Provider Physician Referring Provider Specialty: Medical Address: [address] [place] [address], [id number] Email: Visit Number Visit Number 24 Discharge Summary PT OP: Cervical/Upper Extremity Start: 10/30/24 13:47 Freq: Status: Active Protocol: Document 01/17/25 12:16 [facility] (Rec: 01/17/25 12:23 [facility] [id number]) Out-Patient Physical Therapy Visit Information Visit Information Visit Type Treatment Note Visit Start Time 10:45 Visit Stop Time 11:30 Visit Number 24 Number of REAL ESTATE MANAGER Visits 0 OP-PT Subjective Patient Comments Patient Comments Hilda reports she almost had a head ache last night but was able to do her exercises to help calm it down. She is ready to DC PT for her neck and start her PT for balance. She is still experiencing the shoulder pain and left UE numbness that resulted from her fall on the uneven sidewalk. Manual Therapy Treatment Soft Tissue Mobilization CS paraspinals Mobilization Type Cross-Friction,Sustained Pressure Intensity/Depth Moderate Body Position Sitting thoracic paraspinals Intensity/Depth Moderate upper trapezius release Body Position Supine Comments manual release of the upper trapezius bilaterally Manual Techniques manual pec minor stretching B Body Location pec minor stretch B Body Position Hooklying Comments Manual pressure though the anterior shoulder to provide a pec minor stretch each side occipital release Reps/Duration contract relax with eyes moving cranially. Comments subooccipital release Physical Therapy Assessment Goals 3 Impairment muscle guarding and spams of the right>left upper trapezius, SCM, and scalenes B Human Resources Office Assistant Goal (LTG) Hilda presents with decreased muscle guarding and spasm of the upper trapezius, SCM, and scalene musculature 01/17/25 some progress LTG Duration 8 weeks 2 Impairment Pain and limited Cervical ROM Short Term Goal (STG Hilda is educated on a HEP for cervical ROM and ) mobility some progress STG Duration 4 weeks Residential Goal (LTG) Improved cervical ROM and Hilda is better able to turn her head while driving pt noted it was becoming easier for cervical ROM now and to turn her head with driving prior to her fall on 10/24/24. At this point her ROM is back to where it was when she was starting PT LTG Duration 12 weeks 1 Impairment cervical spine pain rated 6-9 out of 10 that limits Hilda's ability to drive, sew, and quilt Residential Goal (LTG) Hilda reports a overall reduction in cervical pain and is able to return to her activities of driving, sewing, and quilting As of 10/18/24 pt notes pain is less severe and she is able to sew for 30 min at at time, and now after her fall 10/24/24 the pain has increased again limiting activity levels LTG Duration 8 weeks+ Assessment Summary Assessment Stefany is independent with her HEP at this time and will be discharged from PT. She will be starting up with a balance referral as she is a fall risk and has multiple falls Physical Therapy Plan Other Referrals/Consults Referrals/Consults DC PT to a I HEP Recommended Discharge Physical Therapy Discharge Comments DC to a I HEP
== END 2025-01-22 09:45 | disposition home or self-care (01) ==
LOC: PHYS 10:45
PROVIDERS: Family Provider Family Medicine; PCP Family Medicine; Referring Provider Chiropractor; Visit Provider Chiropractor
DX: M47.12 Other spondylosis with myelopathy, cervical region (principal)
CPT/HCPCS: 97035; 97110; 97116; 97140; 97162

== ENCOUNTER → 2025-01-20 11:00 | Outpatient (CLI) | payer MEDICARE, SELFPAY ==
--- NOTE | 2025-01-20 11:02 | DI.MRI.S_ITS ---
PROCEDURE: MR CERVICAL SPINE WO CON INDICATIONS: L side neuropathy, cervical spine pain after fall TECHNIQUE: Noncontrast sagittal T1 spin echo and T2 fast spin echo, sagittal STIR, foraminal oblique sagittal T2 fast spin echo, and axial gradient echo or T2 fast spin echo through the cervical spine. COMPARISON: [facility], CT, CT CERVICAL SPINE WO CON, 03/08/2024, 10:39. FINDINGS: Image quality: Diagnostic Alignment and Curvature: There is stable bony alignment. Bone Marrow: Marrow demonstrates normal overall signal. Spinal Cord: Visualized spinal cord has normal size and signal. No cerebellar tonsillar herniation. Paraspinous Soft Tissues: No paravertebral masses. Prevertebral soft tissues are normal in thickness. C2-C3: Mild bilateral uncovertebral osteoarthrosis. Mild bilateral facet arthropathy. No significant neuroforaminal or spinal canal stenosis. C3-C4: Degenerative endplate changes and disc space loss. Endplate osteophyte formation. Bilateral facet arthropathy and bilateral uncovertebral osteoarthrosis. Broad-based posterior disc osteophyte complex which effaces the anterior thecal sac. AP diameter of the spinal canal measures 0.7 cm. Mild right and moderate left bilateral neuroforaminal stenosis. C4-C5: Mild degenerative endplate changes. Mild bilateral facet arthropathy. Bilateral uncovertebral osteoarthrosis more pronounced on the left. Shallow broad-based posterior disc osteophyte complex slightly eccentric to the left. There is mild right and moderate left bilateral neuroforaminal stenosis. No significant spinal canal stenosis. C5-C6: Degenerative endplate changes and mild disc space loss. Endplate osteophyte formation. Bilateral facet arthropathy. Left greater than right uncovertebral osteoarthrosis and eccentric to the left broad-based posterior disc osteophyte complex. No significant spinal canal stenosis. There is mild-moderate right and moderate left bilateral neuroforaminal stenosis. C6-C7: Degenerative endplate changes and disc space loss. Moderate broad-based posterior disc osteophyte complex causing effacement of the anterior thecal sac. This is slightly eccentric to the left. Residual AP diameter of the spinal canal measures approximately 0.8 cm. No cord signal abnormalities. Bilateral uncovertebral osteoarthrosis more pronounced on the left. Bilateral facet arthropathy. There is left greater than right moderate bilateral neuroforaminal stenosis. C7-T1: Mild degenerative endplate changes. Mild bilateral uncovertebral osteoarthrosis and facet arthropathy. Shallow broad-based posterior disc osteophyte complex. No significant spinal canal stenosis. Mild bilateral neuroforaminal stenosis. IMPRESSION: Cervical spine without acute abnormalities. Moderate/advanced multilevel, multifactorial cervical spondylosis as described above by vertebral body level. Findings are most pronounced at C3-4 and C6-7. No evidence for cord signal abnormalities. Overall, spondylitic changes are more advanced on the left side. Dictated by: Juan M Ferrer M.D. on 01/22/2025 at 21:13 Approved by: Juan M Ferrer M.D. on 01/22/2025 at 21:27
== END ==
LOC: MRI 11:02
PROVIDERS: Family Provider Family Medicine; PCP Family Medicine; Referring Provider Family Medicine; Visit Provider Family Medicine
DX: M47.812 Spondylosis without myelopathy or radiculopathy, cervical region (principal); M54.2 Cervicalgia; R20.2 Paresthesia of skin
CPT/HCPCS: 72141